=== PATIENT | female | born 1990 | race Caucasian/White ===

== ENCOUNTER 2017-02-06 11:44 | Emergency (ER) | payer OTHER, MEDICAID ==
--- NOTE | 2017-02-06 12:22 | ER Document Report ---
ED Medical Screen (RME) - General Chief Complaint: Seizure Stated Complaint: POSSIBLE SEIZURE Time Seen by Provider: 02/06/17 12:07 Mode of Arrival: Wheelchair Information source: Relative Cannot obtain history due to: Mentally challenged Notes: This is a 26-year-old female with a history of autism, mental disability, and seizure disorder who presents after having multiple seizures today at home. Caregivers states that she has not had a seizure in over a year until today. She has a vagus nerve stimulator and is also taking Depakote and Zonegran for her seizures. Caregiver states that she has had a total of 9 seizures since 330 this morning. The most recent seizure was at about 1120 and lasted for 7- 10 minutes. She has been given p.o. Valium today as well as 1 dose of her rectal Diastat at about 1030. Caregivers report no recent fevers or illness. She is currently at her baseline mental status. Her neurologist is Dr. Barba. I have greeted and performed a rapid initial assessment of this patient. A comprehensive ED assessment and evaluation of the patient, analysis of test results and completion of the medical decision making process will be conducted by additional ED providers. TRAVEL OUTSIDE OF THE [place] IN LAST 30 DAYS: No - Related Data Allergies/Adverse Reactions: pertussis vaccine,adsorbed [Pertussis Vaccine,Adsorbed] Allergy (Severe, Verified 01/25/15 11:01) Seizures Past Medical History - Past Medical History Cardiac Medical History: Denies: Hx Coronary Artery Disease, Hx Heart Attack, Hx Hypertension Pulmonary Medical History: Reports: Hx Asthma - on meds Denies: Hx Bronchitis, Hx COPD, Hx Pneumonia Neurological Medical History: Reports: Hx Seizures - last x 3 weeks ago//vns implant. Denies: Hx Cerebrovascular Accident Renal/ Medical History: Denies: Hx Peritoneal Dialysis Musculoskeltal Medical History: Denies Hx Arthritis - Immunizations Hx Diphtheria, Pertussis, Tetanus Vaccination: Yes Physical Exam - Vital signs Vitals: Pulse Resp BP Pulse Ox 113 H 18 116/48 L 98 02/06/17 11:53 02/06/17 11:53 02/06/17 11:53 02/06/17 11:53 - General In distress: None Notes: Alert, baseline mental status per family. Course - Vital Signs Vital signs: Temp Pulse Resp BP Pulse Ox 113 H 18 116/48 L 98 02/06/17 11:53 02/06/17 11:53 02/06/17 11:53 02/06/17 11:53
[2017-02-06 14:09] LABS: ABSOLUTE BASOPHILS # (AUTO) 0.1 10^3/uL (0.0-0.2); ABSOLUTE LYMPHOCYTES (AUTO) 2.3 10^3/uL (0.5-4.7); ABSOLUTE MONOCYTES (AUTO) 0.5 10^3/uL (0.1-1.4); ABSOLUTE NEUT (AUTO) 7.2 10^3/uL (1.7-8.2); BASOPHILS % (AUTO) 0.5 % (0-2); EOSINOPHILS % (AUTO) 0.2 % (0-6); HEMATOCRIT 38.5 % (36.0-47.0); HEMOGLOBIN 12.7 g/dL (12.0-15.5); HGB HCT DIFFERENCE -0.4; LYMPHOCYTES % (AUTO) 22.9 % (13-45); MEAN CORPUSCULAR HEMOGLOBIN 30.9 pg (27.0-33.4); MEAN CORPUSCULAR VOLUME 93 fl (80-97); RED BLOOD COUNT 4.12 10^6/uL (3.72-5.28); RED CELL DISTRIBUTION WIDTH 15.3 % (11.5-14.0); SEGMENTED NEUTROPHILS % (AUTO) 71.4 % (42-78); WHITE BLOOD COUNT 10.1 10^3/uL (4.0-10.5)
[2017-02-06 14:28] LABS: ALANINE AMINOTRANSFERASE 38 U/L (9-52); ALBUMIN 4.6 g/dL (3.5-5.0); ALKALINE PHOSPHATASE 75 U/L (38-126); ANION GAP 11 (5-19); ASPARTATE AMINO TRANSFERASE 32 U/L (14-36); BILIRUBIN,DIRECT 0.3 mg/dL (0.0-0.4); BILIRUBIN,TOTAL 0.5 mg/dL (0.2-1.3); BLOOD UREA NITROGEN 14 mg/dL (7-20); CALCIUM 10.7 mg/dL (8.4-10.2); CARBON DIOXIDE 23 mmol/L (22-30); CHLORIDE 107 mmol/L (98-107); CREATININE RESULT 0.62 mg/dL (0.52-1.25); GLUCOSE 88 mg/dL (75-110); POTASSIUM 4.8 mmol/L (3.6-5.0); SODIUM 141.3 mmol/L (137-145); TOTAL PROTEIN 8.1 g/dL (6.3-8.2)
[2017-02-06 14:35] LABS: ALCOHOL < 10 mg/dL (NONE DETECTED)
[2017-02-06] MEDS ORDERED: DIAZEPAM INJ 10 MG/2 ML DISP.SYRIN IV ONE (15:36)
[2017-02-06 16:54] LABS: APPEARANCE,URINE CLOUDY; BILIRUBIN,URINE NEGATIVE (NEGATIVE); GLUCOSE, URINE NEGATIVE (NEGATIVE); KETONES,URINE NEGATIVE (NEGATIVE); LEUKOCYTE ESTERASE,URINE NEGATIVE (NEGATIVE); NITRITE,URINE NEGATIVE (NEGATIVE); PROTEIN,URINE 30 mg/dL (NEGATIVE); URINE SPECIFIC GRAVITY 1.025; UROBILINOGEN,URINE NEGATIVE mg/dL (<2.0)
[2017-02-06 17:05] LABS: URINE BARBITURATES SCREEN NEGATIVE; URINE METHADONE SCREEN NEGATIVE; URINE OPIATES LOW NEGATIVE; URINE PHENCYCLIDINE SCREEN NEGATIVE
[2017-02-06] MEDS ORDERED: DIVALPROEX SODIUM 500 MG TAB.SR.24H PO ONE ×2 (17:54→18:05)
[2017-02-06] MEDS ORDERED: DIVALPROEX SODIUM 250 MG TAB.SR.24H PO ONE (18:13)
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
[2017-02-06 18:15] VITALS: BP 124/81
== END 2017-02-06 18:25 | disposition home or self-care (01) ==
LOC: ER 11:44
DX: G40.409 Other generalized epilepsy and epileptic syndromes, not intractable, without status epilepticus (principal); J45.909 Unspecified asthma, uncomplicated; Z79.899 Other long term (current) drug therapy; Z96.89 Presence of other specified functional implants; Z88.7 Allergy status to serum and vaccine
CPT/HCPCS: 99284; 51701; 36415; 82962; 80307 ×2; 83735; 84703; 85025; 80053; 81001; 80164; J3490

== ENCOUNTER → 2017-11-27 | Outpatient (CLI) | payer OTHER, MEDICAID ==
--- NOTE | 2017-11-27 11:49 | RADIOLOGY REPORT (SQ) ---
EXAM DESCRIPTION: CHEST PA/LATERAL COMPLETED DATE/TIME: 11/27/2017 11:41 am REASON FOR STUDY: COUGH R05 COUGH COMPARISON: None. NUMBER OF VIEWS: Two views. TECHNIQUE: Frontal and lateral radiographic views of the chest acquired. LIMITATIONS: Motion on lateral view. FINDINGS: LUNGS AND PLEURA: No opacities, masses or pneumothorax. No pleural effusion. MEDIASTINUM AND HILAR STRUCTURES: No masses or contour abnormality. HEART AND VASCULAR STRUCTURES: Cardiac enlargement. Vascular congestion. BONES: No acute findings. HARDWARE: Vagal nerve stimulator. OTHER: No other significant finding. IMPRESSION: CARDIAC ENLARGEMENT. VASCULAR CONGESTION. TECHNICAL DOCUMENTATION: JOB ID: [id number] [employer]- All Rights Reserved Reading location - IP/workstation name: [email or web address]
== END ==
LOC: OD 11:12
PROVIDERS: ATTEND Family Medicine
DX: R05 Cough (principal)
CPT/HCPCS: 71046

== ENCOUNTER → 2018-03-26 | Outpatient (CLI) | payer OTHER, MEDICAID ==
--- NOTE | 2018-03-26 16:02 | RADIOLOGY REPORT (SQ) ---
EXAM DESCRIPTION: CHEST PA/LATERAL COMPLETED DATE/TIME: 03/26/2018 3:48 pm REASON FOR STUDY: COUGH COMPARISON: 11/27/2017. EXAM PARAMETERS: NUMBER OF VIEWS: two views TECHNIQUE: Digital Frontal and Lateral radiographic views of the chest acquired. RADIATION DOSE: NA LIMITATIONS: none FINDINGS: LUNGS AND PLEURA: No opacities, masses or pneumothorax. No pleural effusion. MEDIASTINUM AND HILAR STRUCTURES: No masses or contour abnormalities. HEART AND VASCULAR STRUCTURES: Heart normal size. No evidence for failure. BONES: No acute findings. HARDWARE: Nerve stimulator. OTHER: No other significant finding. IMPRESSION: NO SIGNIFICANT RADIOGRAPHIC FINDING IN THE CHEST. TECHNICAL DOCUMENTATION: JOB ID: [id number] [employer]- All Rights Reserved Reading location - IP/workstation name: [email or web address]
== END ==
LOC: OD 14:42
PROVIDERS: ATTEND Nurse Practitioner Family
DX: R05 Cough (principal)
CPT/HCPCS: 71046

== ENCOUNTER → 2018-12-15 | Outpatient (CLI) | payer OTHER, MEDICAID ==
--- NOTE | 2018-12-15 12:04 | RADIOLOGY REPORT (SQ) ---
EXAM DESCRIPTION: FINGERS RIGHT COMPLETED DATE/TIME: 12/15/2018 11:18 am REASON FOR STUDY: RT FINGER PAIN M79.644 PAIN IN RIGHT FINGER(S) COMPARISON: None. NUMBER OF VIEWS: Three views. TECHNIQUE: AP, lateral, and oblique images acquired of the right second finger. LIMITATIONS: None. FINDINGS: MINERALIZATION: Normal. BONES: No acute fracture or dislocation. SOFT TISSUES:Soft tissue swelling. No foreign body. OTHER: No other significant finding. IMPRESSION: 1. Soft tissue swelling. Correlation suggested. 2. No acute osseous findings. COMMENT: SITE OF TRAUMA/COMPLAINT MARKED/STAMP COMPLETED: NO. TECHNICAL DOCUMENTATION: JOB ID: [id number] [employer]- All Rights Reserved Reading location - IP/workstation name: [email or web address]
== END ==
LOC: OD 11:03
PROVIDERS: ATTEND Nurse Practitioner Acute Care
DX: M79.644 Pain in right finger(s) (principal); M79.89 Other specified soft tissue disorders

== ENCOUNTER 2019-02-07 21:47 | Inpatient (IN) | payer OTHER, MEDICAID ==
[2019-02-07] MEDS ORDERED: IPRATROPIUM/ALBUTEROL 0.5-2.5 MG/3 ML AMPUL NEB ONE (22:13)
[2019-02-07] MEDS ORDERED: METHYLPREDNISOLONE INJ 125 MG/2 ML SDV IV ONE (22:13)
[2019-02-07] MEDS ORDERED: AZITHROMYCIN INJ 500 MG VIAL IV ONE (22:14)
[2019-02-07] MEDS ORDERED: CEFTRIAXONE INJ 1000 MG VIAL IV ONE (22:14)
--- NOTE | 2019-02-07 22:21 | ER Document Report ---
ED General - General Chief Complaint: Shortness Of Breath Stated Complaint: SHORTNESS OF BREATH Time Seen by Provider: 02/07/19 22:07 Primary Care Provider: PHILIPPE RUIZ NP [Primary Care Provider] - Follow up as needed Information source: Parent Cannot obtain history due to: Mentally challenged, Unstable vital signs Notes: Patient is a 28-year-old female with a history of developmental delay, epilepsy, presents cough, fever to 104.4 F, and cough. History is extremely limited as patient is quite unstable at time of presentation with severe hypoxemia. Mother denies any history of similar symptoms in the past. Patient was seen at urgent care several days ago and discharged without intervention. TRAVEL OUTSIDE OF THE [place] IN LAST 30 DAYS: No - Related Data Allergies/Adverse Reactions: pertussis vaccine,adsorbed [Pertussis Vaccine,Adsorbed] Allergy (Severe, Verified 01/25/15 11:01) Seizures Past Medical History - General Information source: Parent Cannot obtain history due to: Mentally challenged, Unstable vital signs - Social History Smoking Status: Never Smoker Frequency of alcohol use: None Drug Abuse: None Lives with: Parents Family History: Reviewed & Not Pertinent - Past Medical History Cardiac Medical History: Denies: Hx Coronary Artery Disease, Hx Heart Attack, Hx Hypertension Pulmonary Medical History: Reports: Hx Asthma - on meds Denies: Hx Bronchitis, Hx COPD, Hx Pneumonia Neurological Medical History: Reports: Hx Seizures - last x 3 weeks ago//vns implant. Denies: Hx Cerebrovascular Accident Renal/ Medical History: Denies: Hx Peritoneal Dialysis Musculoskeletal Medical History: Denies Hx Arthritis - Immunizations Hx Diphtheria, Pertussis, Tetanus Vaccination: Yes Review of Systems - Review of Systems -: Yes ROS unobtainable due to patient's medical condition Physical Exam - Vital signs Vitals: Resp Pulse Ox 17 69 L 02/07/19 21:53 02/07/19 21:53 Interpretation: Tachycardic, Hypoxic, Tachypneic Notes: PHYSICAL EXAMINATION: GENERAL: Lethargic, visibly cyanotic, in respiratory distress HEAD: Atraumatic, normocephalic. EYES: extraocular movements intact, sclera anicteric, conjunctiva are normal. ENT: nares patent, oropharynx clear without exudates. Dry mucous membranes. NECK: supple without lymphadenopathy LUNGS: Diminished in the left versus the right, coarse rales throughout HEART: Regular tachycardia, no murmurs, echo without pericardial effusion ABDOMEN: Soft, obese abdomen, nontender, normoactive bowel sounds. No guarding, no rebound. No masses appreciated. EXTREMITIES: No pitting or edema. No cyanosis. NEUROLOGICAL: No focal neurological deficits. Moves all extremities spontaneously PSYCH: Somewhat agitated, cognitively impaired SKIN: Warm, Dry, normal turgor, no rashes or lesions noted. Course - Re-evaluation Re-evalutation: 02/07/19 22:15 Patient arrives visibly cyanotic, blue lips, cyanotic hands, quite lethargic. Initial report of from EMS was that patient was saturating 95% on room air but this appears to be an air as patient is visibly cyanotic at time of presentation. Was immediately placed on nasal cannula and transition to nonrebreather when this was available. This did bring patient saturations in the low 90s and she was subsequently transferred to BiPAP at 65% FiO2 bring her saturations to 97%. The remainder of her vitals are within acceptable limits heart rate in the upper 80s, blood pressure 110 on 68. Moderately tachypneic at time of presentation with coarse rales and wheezing in all lung souza. Di minished on left versus right. Initial chest x-ray appears to show a right- sided pneumonia and patient has had a fever with cough at home, T-max 104 F. Patient has been started on ceftriaxone and azithromycin as well as IV fluids. Critically ill, will continue to reassess at regular intervals. 02/07/19 22:48 I have weaned the patient's FiO2 down to 50%, sat is currently 96%. Chest x-ray seems to show a very large pneumonic infiltrate on the left as well as the right although left is much more prominent than right. Labs currently pending. Patient remains in guarded condition although is much improved from initial presentation. Will continue to reassess at regular intervals 02/08/19 00:29 Patient has deteriorated, blood pressure is beginning to down trend as is her oxygenation despite uptrending to 70% FiO2 on BiPAP. Patient will be moved to a resuscitation room, will give 2 additional liters of IV fluid. Patient may require intubation if her oxygenation does not improve on BiPAP. 02/08/19 02:02 Documentation is delayed as this patient had significant deterioration. Her clinical status unfortunately deteriorated significantly with her oxygenation coming down into the 80s even on 100% on BiPAP. Patient's blood pressure also deteriorated coming into the 80s systolic despite fluid resuscitation. Patient subsequently underwent RSI, first-pass attempt was successful. Patient sedated using rocuronium ketamine during intubation, propofol and hydromorphone thereafter. The patient then had a right internal jugular central line placed without difficulty after several attempts were made at the right femoral vein although it was very difficult to visualize her vein even with ultrasound guidance and I was never able to successfully catheterize the vein. The patient is currently receiving norepinephrine to maintain her pressures. I have contacted [facility] and awaiting callback. 02/08/19 03:52 I reassessed the patient on multiple occasions. She continues to be much improved in terms her hemodynamics since above interventions. I continue to await callback from [facility] and have called twice to determine because of delay. Accepting vamp marker is busy with critical patients at the facility. Awaiting callback. Will continue current management. 02/08/19 04:21 I did discuss this case with Dr. Kramer at [facility] who advises that the patient can likely remain here at [facility] as she does not require dialysis at this point. I did discuss with Dr. Henderson who has accepted the patient to the ICU. - Vital Signs Vital signs: Temp Pulse Resp BP Pulse Ox 98.4 F 29 H 112/99 H 94 02/08/19 00:10 02/08/19 01:01 02/08/19 01:01 02/08/19 01:15 - Laboratory Result Diagrams: 02/07/19 22:07 02/07/19 23:00 Laboratory results interpreted by me: 02/07/19 02/07/19 02/07/19 22:07 22:07 23:00 RBC 3.21 L Hgb 10.0 L Hct 29.6 L RDW 16.7 H Plt Count 123 L Seg Neuts % (Manual) 33 L Band Neutrophils % 29 H Monocytes % (Manual) 1 L Metamyelocytes % 3 H Myelocytes % 3 H Promyelocytes % 2 H Abs Monocytes (Manual) 0.0 L VBG pH 7.29 L Carbon Dioxide 20 L BUN 46 H Creatinine 3.45 H Est GFR ( Amer) 19 L Est GFR (Non-Af Amer) 16 L Calcium 8.3 L Direct Bilirubin 0.6 H AST 59 H NT-Pro-B Natriuret Pep Total Protein 5.4 L Albumin 2.7 L 02/07/19 23:00 RBC Hgb Hct RDW Plt Count Seg Neuts % (Manual) Band Neutrophils % Monocytes % (Manual) Metamyelocytes % Myelocytes % Promyelocytes % Abs Monocytes (Manual) VBG pH Carbon Dioxide BUN Creatinine Est GFR ( Amer) Est GFR (Non-Af Amer) Calcium Direct Bilirubin AST NT-Pro-B Natriuret Pep 3020 H Total Protein Albumin - Diagnostic Test Radiology reviewed: Image reviewed, Reports reviewed Radiology results interpreted by me: 02/08/19 03:53 Chest x-ray: Bilateral infiltrates left worse than right - EKG Interpretation by Me Additional EKG results interpreted by me: 02/08/19 04:23 Sinus rhythm, rate 88, no ST elevations or depressions. QTC is 441. Procedures - Central Line Right Internal jugular Consent obtained: No - Emergent Central line pre-insertion: Sterile PPE donned, Chloraprep applied Central line lumen type: Triple Ultrasound guided: Yes Line secured with sutures: Yes Central line post-insertion: Blood return from lumens, Biopatch applied, Sutured, Sterile dressing applied, Position confirmed w/ CXR Number of attempts: 1 Complications: No - Intubation Orotracheal Airway evaluation: Obese Mallampati Classification: Class 1 Medications: Ketamine, Other - Rocuronium Intubation method: Orotracheal Blade size: 4 Equipment used: Glidescope ETT size: 7.5 ETT secured at: Lips ETT secured at (cm): 21 Breath Sounds after Intubation: Equal End tidal CO2 confirmed: Yes Ventilator settings: SIMV Tidal volume: 400 FiO2: 100 Respirations: 16 PEEP: 12 Post Intubation Xray: Yes Intubation Complications: No complications Critical Care Note - Critical Care Note Total time excluding time spent on procedures (mins): 110 Comments: Critical care time spent obtaining history from patient or surrogate, discussions with consultants, development of treatment plan with patient or surrogate, evaluation of patient's response to treatment, examination of patient, ordering and performing treatments and interventions, ordering and review of laboratory studies, re-evaluation of patient's condition, ordering and review of radiographic studies and review of old charts Discharge - Discharge Clinical Impression: Acute respiratory failure with hypoxia, Septic shock, developmental delay Bilateral pneumonia Qualifiers: Pneumonia type: due to unspecified organism Lung location: unspecified part of lung Qualified Code(s): J18.9 - Pneumonia, unspecified organism Acute renal failure Qualifiers: Acute renal failure type: unspecified Qualified Code(s): N17.9 - Acute kidney failure, unspecified Condition: Critical Disposition: ADMITTED INPATIENT Admitting Provider: Beatriz (Hospitalist) Referrals: PHILIPPE RUIZ NP [Primary Care Provider] - Follow up as needed
[2019-02-07 22:26] LABS: HEMATOCRIT 29.6 % (36.0-47.0); MEAN CORPUSCULAR HEMOGLOBIN 31.1 pg (27.0-33.4); MEAN CORPUSCULAR HGB CONC 33.8 g/dL (32.0-36.0); MEAN CORPUSCULAR VOLUME 92 fl (80-97); PLATELET COUNT 123 10^3/uL (150-450); RED BLOOD COUNT 3.21 10^6/uL (3.72-5.28); RED CELL DISTRIBUTION WIDTH 16.7 % (11.5-14.0); WHITE BLOOD COUNT 4.9 10^3/uL (4.0-10.5)
[2019-02-07 22:32] LABS: VENOUS BLOOD HCO3 22.6 mmol/L (20-32); VENOUS BLOOD PCO2 47.7 mmHg (35-63); VENOUS BLOOD PH 7.29 (7.30-7.42)
--- NOTE | 2019-02-07 22:38 | RADIOLOGY REPORT (SQ) ---
EXAM DESCRIPTION: XR CHEST 1 VIEW COMPLETED DATE/TME: 02/07/2019 22:10 CLINICAL HISTORY: 28 years, Female, sob COMPARISON: 03/26/2018 chest NUMBER OF VIEWS: 1 TECHNIQUE: Portable chest LIMITATIONS: None. FINDINGS: Heart size is normal. Left-sided pacing device. Extensive airspace opacity throughout the left hemithorax. Airspace opacity in the right perihilar region. No pneumothorax. IMPRESSION: Airspace opacities bilaterally, more extensive on the left. Findings likely reflect a combination of effusion and atelectasis with pneumonia not excluded copyright 2010 [employer]- All Rights Reserved
[2019-02-07 22:47] LABS: ABSOLUTE LYMPHOCYTES# (MANUAL) 1.4 10^3/uL (0.5-4.7); ABSOLUTE NEUTROPHILS# (MANUAL) 3.4 10^3/uL (1.7-8.2); BASOPHILS % (MANUAL) 0 % (0-2); EOSINOPHILS % (MANUAL) 0 % (0-6); LYMPHOCYTES % (MANUAL) 29 % (13-45); MONOCYTES % (MANUAL) 1 % (3-13); SEGMENTED NEUTROPHILS % (MAN) 33 % (42-78); TOTAL CELLS COUNTED 100
[2019-02-07 22:50] LABS: PLATELET COMMENT DECREASED; TOXIC GRANULATION 1+; TOXIC VACUOLATION PRESENT
[2019-02-07 22:54] LABS: ANISOCYTOSIS 1+; HYPOCHROMASIA SLIGHT; POIKILOCYTOSIS SLIGHT
[2019-02-07 22:55] LABS: BAND NEUTROPHILS % (MANUAL) 29 % (3-5); METAMYELOCYTES % (MANUAL) 3 % (0); MYELOCYTES % (MANUAL) 3 % (0); PROMYELOCYTES % (MANUAL) 2 % (0)
[2019-02-07 23:35] LABS: ALANINE AMINOTRANSFERASE 33 U/L (9-52); ALBUMIN 2.7 g/dL (3.5-5.0); ALKALINE PHOSPHATASE 49 U/L (38-126); ANION GAP 15 (5-19); ASPARTATE AMINO TRANSFERASE 59 U/L (14-36); BILIRUBIN,DIRECT 0.6 mg/dL (0.0-0.4); BILIRUBIN,TOTAL 0.6 mg/dL (0.2-1.3); BLOOD UREA NITROGEN 46 mg/dL (7-20); CALCIUM 8.3 mg/dL (8.4-10.2); CARBON DIOXIDE 20 mmol/L (22-30); CHLORIDE 102 mmol/L (98-107); GLUCOSE 104 mg/dL (75-110); POTASSIUM 4.2 mmol/L (3.6-5.0); SODIUM 137.2 mmol/L (137-145); TOTAL PROTEIN 5.4 g/dL (6.3-8.2)
--- NOTE | 2019-02-07 23:46 | EKG REPORT ---
SEVERITY:- BORDERLINE ECG - SINUS RHYTHM BORDERLINE T ABNORMALITIES, INFERIOR LEADS : Confirmed by: Aspen High MD 07-Feb-2019 23:45:53
[2019-02-08] MEDS ORDERED: NORMAL SALINE 1000 ML 1,000 ML IV ONE ×2 (00:09→00:10)
[2019-02-08] MEDS ORDERED: KETAMINE HCL INJ 500 MG/10 ML VIAL ONE (00:38)
[2019-02-08] MEDS ORDERED: PROPOFOL 1,000 MG/100 ML INFUS..BTL IV ONE (00:38)
[2019-02-08] MEDS ORDERED: NOREPINEPHRINE BITARTRATE INJ/PF 4 MG/4 ML SDV IV ONE (00:39)
--- NOTE | 2019-02-08 01:05 | RADIOLOGY REPORT (SQ) ---
EXAM DESCRIPTION: [facility]: XR CHEST 1 VIEW at 0044 CLINICAL HISTORY: 28 years Female, INCREASED SOB COMPARISON: 02/07/2019 at 2215 FINDINGS: There is persistent dense consolidation in the left mid and lower lung field, with obscuration of the left hemidiaphragm. No pneumothorax. Right lung remains well-inflated. No mediastinal shift. Electronic device in the left chest wall is again noted, leads extending into the left lower neck. Bony structures are unremarkable. IMPRESSION: 1. No significant change, with persistent dense consolidation/infiltrate in the left lower lobe, likely with left pleural effusion.
[2019-02-08] MEDS ORDERED: HYDROMORPHONE HCL INJ/PF 2 MG/ML AMPULE ONE ×2 (01:13→01:20)
[2019-02-08] MEDS ORDERED: ROCURONIUM BROMIDE INJ 50 MG/5 ML VIAL IV ONE ×2 (01:23→10:59)
[2019-02-08] MEDS ORDERED: DEXTROSE 5%-WATER 250 ML with NOREPINEPHRINE BITARTRATE 4 MG IV PRN ×4 (01:23→04:40)
[2019-02-08] MEDS ORDERED: KETAMINE HCL INJ 500 MG/10 ML VIAL IV ONE (01:24)
[2019-02-08] MEDS ORDERED: HYDROMORPHONE HCL INJ/PF 2 MG/ML AMPULE IV ONE ×2 (01:24→01:27)
[2019-02-08] MEDS ORDERED: PROPOFOL 1,000 MG/100 ML INFUS..BTL IV PRN (01:25)
--- NOTE | 2019-02-08 02:01 | RADIOLOGY REPORT (SQ) ---
EXAM DESCRIPTION: XR CHEST 1 VIEW COMPLETED DATE/TME: 02/08/2019 00:00 CLINICAL HISTORY: 28 years Female, ETT PLACEMENT, CL PLACEMENT, NG TUBE PLACEMENT COMPARISON: Same day. NUMBER OF VIEWS/TECHNIQUE: 1/AP FINDINGS: Moderate opacity-effusion of the left lower and mid hemithorax. Moderate central edema pattern. Moderate patchy opacity of the right upper lobe. Interval worsening. Adequate appearing endotracheal tube. Adequate appearing enteric tube.Adequate appearing right jugular central line. Normal cardiac silhouette size. No pneumothorax. Stable bony thorax. IMPRESSION: 1. Interval intubation. 2. Moderate opacity-effusion of the left lower and mid hemithorax. Moderate central edema pattern. Moderate patchy opacity of the right upper lobe. Interval worsening.
[2019-02-08] MEDS ORDERED: RINGERS SOLUTION,LACTATED 1,000 ML IV ONE (03:52)
[2019-02-08] MEDS ORDERED: RINGERS SOLUTION,LACTATED 1,000 ML IV PRN (04:40)
[2019-02-08] MEDS ORDERED: ONDANSETRON HCL INJ/PF 4 MG/2 ML SDV IV PRN (04:40)
[2019-02-08] MEDS ORDERED: CHLORPROMAZINE HCL INJ 25 MG/1 ML AMPULE IV PRN (04:48)
[2019-02-08] MEDS ORDERED: ACETAMINOPHEN 650 MG SUPP.RECT PR PRN (04:48)
[2019-02-08] MEDS ORDERED: LEVALBUTEROL HCL NEB 0.63 MG/3 ML AMPUL NEB PRN (04:48)
[2019-02-08] MEDS ORDERED: AZITHROMYCIN INJ 500 MG VIAL IV SCH (05:00)
[2019-02-08] MEDS ORDERED: VANCOMYCIN HCL INJ 1000 MG VIAL IV SCH (05:00)
[2019-02-08] MEDS ORDERED: MEROPENEM 1 GM VIAL IV PRN (05:00)
[2019-02-08] MEDS ORDERED: VANCOMYCIN HCL INJ 1000 MG VIAL IV PRN (05:09)
[2019-02-08] MEDS ORDERED: VANCOMYCIN HCL 1,500 MG in DEXTROSE 5%-WATER 250 ML IV ONE (06:00)
[2019-02-08] MEDS ORDERED: MEROPENEM 1 GM in NORMAL SALINE 50 ML IV SCH (06:00)
[2019-02-08 06:08] LABS: APPEARANCE,URINE CLOUDY; BILIRUBIN,URINE NEGATIVE (NEGATIVE); COLOR,URINE YELLOW; GLUCOSE, URINE NEGATIVE (NEGATIVE); KETONES,URINE NEGATIVE (NEGATIVE); LEUKOCYTE ESTERASE,URINE NEGATIVE (NEGATIVE); NITRITE,URINE NEGATIVE (NEGATIVE); PROTEIN,URINE 30 mg/dL (NEGATIVE); URINE SPECIFIC GRAVITY 1.013; UROBILINOGEN,URINE NEGATIVE mg/dL (<2.0)
[2019-02-08 06:28] LABS: ARTERIAL BLOOD H2CO3 1.27 mmol/L (1.05-1.35); ARTERIAL BLOOD O2 SATURATION 98.9 % (94-98); ARTERIAL BLOOD PCO2 42.2 mmHg (35-45); ARTERIAL BLOOD PH 7.22 (7.35-7.45); ARTERIAL BLOOD PO2 171.4 mmHg (80-100); ARTERIAL BLOOD TOTAL CO2 18.3 mmol/L (21-25)
[2019-02-08 06:29] LABS: ARTERIAL BLOOD FIO2 100%
--- NOTE | 2019-02-08 07:01 | PDOC H&P ---
History of Present Illness Admission Date/PCP: 02/08/2019 PHILIPPE RUIZ NP Patient complains of: Fever History of Present Illness: EDITA TAO is a 28 year old female who presents the emergency room with fever. Patient has developmental delays and is currently very ill (toxic) and hypoxic and unable to contribute to her medical care due to delirium. Mother relates that for 1 week she has been having a cough that has been mostly nonproductive and an intermittent fever with numerous episodes of seizures (history of seizure disorder often worsened by fever). She was seen, a few days ago, at an urgent care center and treated for an ear infection with oral Ceftin. On the evening prior to their emergency room visit the patient's fever went up to 104 but came down fairly quickly with ibuprofen and Tylenol. In the morning her mother found that she continued to have a cough and fever but later in the evening she realized that her daughter was severely ill when she found her fever had returned to 104.4 F and she was having trouble with her breathing. She subsequently called EMS. Upon their arrival, EMS found the patient with severe dyspnea, hypoxia and fever. Upon her arrival at the emergency room the patient was severely hypoxic and subsequently required intubation and mechanical ventilation. She was also noted to be febrile, severely tachycardic with severe acute renal failure and hypotension requiring pressor support with Levophed. Patient was subsequently admitted to the intensive care unit after stabilization in the emergency room. Past Medical History Cardiac Medical History: Reports: Heart Murmur - Ventricular septal defect? Denies: Coronary Artery Disease, Myocardial Infarction, Hypertension Pulmonary Medical History: Reports: Asthma - on meds Denies: Bronchitis, Chronic Obstructive Pulmonary Disease (COPD), Pneumonia EENT Medical History: Denies: Cataracts, Ears - Hearing aids Neurological Medical History: Reports: Seizures - last x 3 weeks ago//vns implant, Other - Developmental delays Denies: Hemorrhagic CVA, Ischemic CVA, Multiple Sclerosis Endocrine Medical History: Reports: Obesity Denies: Diabetes Mellitus Type 1, Diabetes Mellitus Type 2, Hyperthyroidism, Hypothyroidism Renal/ Medical History: Denies: Chronic Kidney Disease, Nephrolithiasis Malignancy Medical History: Reports: None GI Medical History: Denies: Cirrhosis, Crohn's Disease, Hepatitis, Ulcerative Colitis Musculoskeltal Medical History: Denies: Arthritis, Gout Skin Medical History: Denies: Eczema, Psoriasis Psychiatric Medical History: Denies: Alcohol Dependency, Substance Abuse, Tobacco Dependency Traumatic Medical History: Reports: None Hematology: Reports: Anemia Denies: Bleeding Tendencies Infectious Medical History: Reports: None Past Surgical History Past Surgical History: Reports: None Social History Information Source: Parent Lives with: Parents Smoking Status: Never Smoker Frequency of Alcohol Use: None Hx Recreational Drug Use: No Drugs: None Hx Prescription Drug Abuse: No - Advance Directive Resuscitation Status: Full Code Surrogate healthcare decision maker:: Marilu Tao Family History Family History: Hypertension Parental Family History Reviewed: Yes Children Family History Reviewed: NA Sibling(s) Family History Reviewed.: Yes Medication/Allergy Home Medications: Divalproex Sodium [Depakote ER] 2,500 mg PO DAILY 01/25/15 Furosemide [Lasix] 20 mg PO DAILY 01/25/15 Montelukast Sodium [Singulair 10 mg Tablet] 10 mg PO QHS 01/25/15 Vitamin B Complex [Vitamin B-100 Complex] 1 each PO DAILY 01/25/15 Acetaminophen [Tylenol] 650 mg PO Q4H PRN 02/08/19 Albuterol Sulfate [Ventolin 0.042% Neb 1.25 mg/3 ml Ampul] 1.25 mg NEB QIDP PRN 02/08/19 Budesonide [Pulmicort Neb 0.5 mg/2 ml Ampul] 0.5 mg NEB RTQ12 02/08/19 Clonazepam [Klonopin 1 mg Tablet] 1 mg PO QHS 02/08/19 Diazepam 10 mg PO TIDP PRN 02/08/19 Docusate Sodium [Colace 100 mg Capsule] 100 mg PO DAILY 02/08/19 Fluoxetine HCl [Prozac] 20 mg PO QAM 02/08/19 Fluticasone Propionate [Flonase Nasal [place] 50 Mcg/[place] 16 gm] 2 sprays NASL DAILY 02/08/19 Folic Acid [Folvite 1 mg Tablet] 1 mg PO DAILY 02/08/19 Hydroxyzine HCl [Atarax 25 mg Tablet] 25 mg PO QHS 02/08/19 Levalbuterol HCl [Xopenex Neb 1.25 mg/3 ml Ampul] 1.25 mg NEB RTQ8HP PRN 02/08/19 Levothyroxine Sodium [Synthroid 0.05 mg Tablet] 0.05 mg PO QAM 02/08/19 Loratadine [Claritin 10 mg Tablet] 10 mg PO DAILY 02/08/19 Polyethylene Glycol 3350 [Miralax Powder 17 gm/Packet] 1 packet PO DAILY PRN 02/08/19 Sennosides [Senokotxtra] 0.5 tab PO ASDIR PRN 02/08/19 Zonisamide [Zonegran 100 Mg Capsule] 200 mg PO BID 02/08/19 Allergies/Adverse Reactions: pertussis vaccine,adsorbed [Pertussis Vaccine,Adsorbed] Allergy (Severe, Verified 01/25/15 11:01) Seizures Review of Systems Constitutional: PRESENT: chills, fever(s) Eyes: ABSENT: visual disturbances, other - Ocular pain Ears: ABSENT: hearing changes, other - Ear pain Nose, Mouth, and Throat: ABSENT: mouth pain, sore throat Cardiovascular: PRESENT: dyspnea on exertion. ABSENT: chest pain, edema, orthropnea, palpitations Respiratory: PRESENT: cough, dyspnea Gastrointestinal: ABSENT: abdominal pain, constipation, diarrhea, nausea, vomiting Genitourinary: ABSENT: dysuria, hematuria Musculoskeletal: ABSENT: joint swelling, muscle weakness Integumentary: ABSENT: pruritus, rash Neurological: ABSENT: confusion, convulsions, focal weakness, memory loss, syncope Psychiatric: ABSENT: anxiety, depression Endocrine: ABSENT: cold intolerance, heat intolerance Hematologic/Lymphatic: ABSENT: easy bleeding, easy bruising Physical Exam Vital Signs: Temp Pulse Resp BP Pulse Ox 98.4 F 16 122/65 96 02/08/19 00:10 02/08/19 04:21 02/08/19 04:21 02/08/19 04:21 Intake & Output 02/06/19 02/07/19 02/08/19 23:59 23:59 23:59 Intake Total 1999 Balance 1999 Weight 91.9 kg General appearance: PRESENT: no acute distress, obese, other - Sedated intubated and ventilated Head exam: PRESENT: atraumatic, normocephalic Eye exam: ABSENT: conjunctival injection, scleral icterus Ear exam: PRESENT: normal external ear exam. ABSENT: bleeding, drainage Mouth exam: PRESENT: dry mucosa, neck supple, other - ET tube in good position Neck exam: ABSENT: JVD, thyromegaly, tracheal deviation Respiratory exam: PRESENT: rales - Left chest with prominent coarse rales in the lower two thirds of the left lung souza, rhonchi - Left chest with prominent c oarse rhonchorous sounds, symmetrical, other - Intubated with mechanical ventilation Cardiovascular exam: PRESENT: RRR, tachycardia. ABSENT: clicks, gallop, rubs Pulses: PRESENT: normal radial pulses, normal dorsalis pedis pul, other - Patient is noted to be on pressor support with Levophed Vascular exam: PRESENT: normal capillary refill. ABSENT: pallor GI/Abdominal exam: PRESENT: normal bowel sounds, soft Rectal exam: PRESENT: deferred Extremities exam: ABSENT: joint swelling, pedal edema Musculoskeletal exam: ABSENT: deformity, dislocation Neurological exam: PRESENT: altered - Obtunded secondary to medications, other - Patient is intubated and sedated on mechanical ventilation including a meaningful exam Psychiatric exam: PRESENT: other - Patient is intubated and sedated on mechanical ventilation including a meaningful exam Skin exam: PRESENT: dry, intact, warm. ABSENT: jaundice, rash, urticaria Results Laboratory Results: 02/07/19 22:07 02/07/19 23:00 02/07/19 02/07/19 02/07/19 22:07 22:07 22:07 WBC 4.9 RBC 3.21 L Hgb 10.0 L Hct 29.6 L MCV 92 MCH 31.1 MCHC 33.8 RDW 16.7 H Plt Count 123 L Seg Neutrophils % Not Reportable Lymphocytes % Not Reportable Monocytes % Not Reportable Eosinophils % Not Reportable Basophils % Not Reportable Absolute Neutrophils Not Reportable Absolute Lymphocytes Not Reportable Absolute Monocytes Not Reportable Absolute Eosinophils Not Reportable Absolute Basophils Not Reportable VBG pH VBG pCO2 VBG HCO3 VBG Base Excess Sodium Potassium Chloride Carbon Dioxide Anion Gap BUN Creatinine Est GFR ( Amer) Est GFR (Non-Af Amer) Glucose Lactic Acid Cancelled Calcium Total Bilirubin AST ALT Alkaline Phosphatase Total Protein Albumin Serum HCG, Qual NEGATIVE 02/07/19 02/07/19 02/07/19 22:07 22:07 22:07 WBC RBC Hgb Hct MCV MCH MCHC RDW Plt Count Seg Neutrophils % Lymphocytes % Monocytes % Eosinophils % Basophils % Absolute Neutrophils Absolute Lymphocytes Absolute Monocytes Absolute Eosinophils Absolute Basophils VBG pH 7.29 L VBG pCO2 47.7 VBG HCO3 22.6 VBG Base Excess -4.0 Sodium Cancelled Potassium Cancelled Chloride Cancelled Carbon Dioxide Cancelled Anion Gap Cancelled BUN Cancelled Creatinine Cancelled Est GFR ( Amer) Cancelled Est GFR (Non-Af Amer) Cancelled Glucose Cancelled Lactic Acid 1.0 Calcium Cancelled Total Bilirubin Cancelled AST Cancelled ALT Cancelled Alkaline Phosphatase Cancelled Total Protein Cancelled Albumin Cancelled Serum HCG, Qual 02/07/19 23:00 WBC RBC Hgb Hct MCV MCH MCHC RDW Plt Count Seg Neutrophils % Lymphocytes % Monocytes % Eosinophils % Basophils % Absolute Neutrophils Absolute Lymphocytes Absolute Monocytes Absolute Eosinophils Absolute Basophils VBG pH VBG pCO2 VBG HCO3 VBG Base Excess Sodium 137.2 Potassium 4.2 Chloride 102 Carbon Dioxide 20 L Anion Gap 15 BUN 46 H Creatinine 3.45 H Est GFR ( Amer) 19 L Est GFR (Non-Af Amer) 16 L Glucose 104 Lactic Acid Calcium 8.3 L Total Bilirubin 0.6 AST 59 H ALT 33 Alkaline Phosphatase 49 Total Protein 5.4 L Albumin 2.7 L Serum HCG, Qual 02/07/19 02/07/19 23:00 23:00 Troponin I 0.185 NT-Pro-B Natriuret Pep 3020 H Impressions: Chest X-Ray 02/08/19 00:00 IMPRESSION: 1. Interval intubation. 2. Moderate opacity-effusion of the left lower and mid hemithorax. Moderate central edema pattern. Moderate patchy opacity of the right upper lobe. Interval worsening. Assessment and Plan - Diagnosis (1) Septic shock Is this a current diagnosis for this admission?: Yes Plan: Patient was admitted to the ICU and will be treated with intravenous vasopressor agents including Levophed as required to maintain adequate mean blood pressure for organ perfusion. (2) Acute renal failure Qualifiers: Acute renal failure type: unspecified Qualified Code(s): N17.9 - Acute kidney failure, unspecified Is this a current diagnosis for this admission?: Yes Plan: Patient's acute renal failure be treated with IV fluids and serial metabolic profiles to evaluate efficacy of therapy. A renal consultation will be obtained if need is evidenced by patient's renal function worsening. (3) Severe sepsis with acute organ dysfunction Is this a current diagnosis for this admission?: Yes Plan: The patient's severe sepsis has resulted in organ dysfunction as evidenced by acute renal failure and shock. Patient is treated with IV fluids and her septic shock will be treated with vasopressors. The sepsis will be covered with broad- spectrum antibiotics including azithromycin 500 mg IV every 24 hours, meropenem 1 g IV every 6 hours and vancomycin to be dosed by pharmacy. She will followed with daily blood work including a CBC, CMP, magnesium level and ABGs. Serial lactate levels will be obtained. Blood cultures are pending at the present time. (4) Community acquired pneumonia of left lower lobe of lung Is this a current diagnosis for this admission?: Yes Plan: Patient's pneumonia will be treated aggressively for a community-acquired pneumonia with azithromycin 500 mg IV every 24 hours, meropenem 1 g IV every 6 hours and vancomycin to be dosed by pharmacy. Patient will also receive a pulmonary toilet utilizing Xopenex nebulizers every 2 hours as needed and Mucomyst nebulizer twice daily. Her secondary symptoms of fever will be treated with Tylenol suppositories while she is on the ventilator. Dr. Rossi will be consulted for pulmonology input. (5) Acute respiratory failure with hypoxia Is this a current diagnosis for this admission?: Yes Plan: Patient's acute respiratory failure with hypoxia will be treated with ventilator support as the patient has been endotracheally intubated and started on mechanical ventilation in the emergency room. Dr. Rossi will be consulted to manage her ventilator and he will also be consulted for evaluation of her pneumonia as appropriate. - Time Time Spent with patient: 25-34 minutes - Inpatient Certification Based on my medical assessment, after consideration of the patient's comorbidities, presenting symptoms, or acuity I expect that the services needed warrant INPATIENT care.: Yes I certify that my determination is in accordance with my understanding of Medicare's requirements for reasonable and necessary INPATIENT services [42 CFR 412.3e].: Yes Medical Necessity: Need Close Monitoring Due to Risk of Patient Decompensation, Need For IV Fluids, Need For Continuous Telemetry Monitoring, Need for Nebulizer Therapy and Monitoring of Response, Need for IV Antibiotics, Risk of Complication if Not Cared For in Hospital
[2019-02-08] MEDS: PROPOFOL 1,000 MG/100 ML INFUS..BTL IV PRN ×5 (07:28→23:22)
[2019-02-08] MEDS: METHYLPREDNISOLONE INJ 40 MG/1 ML SDV IV SCH ×4 (07:38→23:22)
[2019-02-08] MEDS: HEPARIN SOD (PORCINE) 5,000 UNIT/ML 1 ML SYRINGE SUBCUT SCH ×3 (07:39→21:46)
[2019-02-08] MEDS ORDERED: ACETYLCYSTEINE 20% SOLN 800 MG/4 ML VIAL.NEB NEB SCH (08:00)
[2019-02-08] MEDS: LEVALBUTEROL HCL NEB 0.63 MG/3 ML AMPUL NEB PRN ×2 (09:00→20:32)
[2019-02-08] MEDS: ACETYLCYSTEINE 20% SOLN 800 MG/4 ML VIAL.NEB NEB SCH ×2 (09:00→20:31)
[2019-02-08] MEDS: PANTOPRAZOLE SODIUM 40 MG VIAL IV SCH ×2 (11:32→21:44)
[2019-02-08] MEDS ORDERED: (PENDING PHARMACY ID) (Sennosides [Senokot] 17.2 MG) NG PRN (13:39)
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
[2019-02-08] MEDS: ALBUMIN HUMAN 12.5 GM/50 ML RTUINJ IV SCH ×2 (15:40→16:16)
[2019-02-08 17:48] LABS: HEMATOCRIT 25.6 % (36.0-47.0); HEMOGLOBIN 8.6 g/dL (12.0-15.5); MEAN CORPUSCULAR HEMOGLOBIN 31.4 pg (27.0-33.4); MEAN CORPUSCULAR HGB CONC 33.8 g/dL (32.0-36.0); MEAN CORPUSCULAR VOLUME 93 fl (80-97); PLATELET COUNT 103 10^3/uL (150-450); RED BLOOD COUNT 2.75 10^6/uL (3.72-5.28); WHITE BLOOD COUNT 4.2 10^3/uL (4.0-10.5)
[2019-02-08] MEDS ORDERED: DIVALPROEX SODIUM 500 MG TAB.SR.24H PO SCH (18:00)
[2019-02-08 18:04] LABS: ANION GAP 12 (5-19); BLOOD UREA NITROGEN 42 mg/dL (7-20); CALCIUM 8.8 mg/dL (8.4-10.2); CARBON DIOXIDE 21 mmol/L (22-30); CHLORIDE 106 mmol/L (98-107); GLUCOSE 171 mg/dL (75-110); POTASSIUM 3.9 mmol/L (3.6-5.0); SODIUM 138.8 mmol/L (137-145)
[2019-02-08 18:20] LABS: ABSOLUTE LYMPHOCYTES# (MANUAL) 0.8 10^3/uL (0.5-4.7); ABSOLUTE NEUTROPHILS# (MANUAL) 3.4 10^3/uL (1.7-8.2); ANISOCYTOSIS 1+; BAND NEUTROPHILS % (MANUAL) 25 % (3-5); BASOPHILS % (MANUAL) 1 % (0-2); EOSINOPHILS % (MANUAL) 0 % (0-6); LYMPHOCYTES % (MANUAL) 18 % (13-45); METAMYELOCYTES % (MANUAL) 1 % (0); MONOCYTES % (MANUAL) 0 % (3-13); MYELOCYTES % (MANUAL) 1 % (0); NUCLEATED RED BLOOD CELLS 1 /100 WBC (0); PLATELET COMMENT DECREASED; PROMYELOCYTES % (MANUAL) 2 % (0); SEGMENTED NEUTROPHILS % (MAN) 52 % (42-78); TOTAL CELLS COUNTED 100
[2019-02-08] MEDS: VALPROATE SODIUM IV SCH (18:44)
[2019-02-08] MEDS: NORMAL SALINE IV SCH (18:44)
[2019-02-08] MEDS: MEROPENEM 1 GM in NORMAL SALINE 50 ML IV SCH (18:45)
[2019-02-08] MEDS: ZONISAMIDE 100 MG CAPSULE NG SCH (18:46)
[2019-02-08] MEDS: AZITHROMYCIN 500 MG in DEXTROSE 5%-WATER 250 ML IV SCH (21:44)
[2019-02-08] MEDS: MONTELUKAST SODIUM 10 MG TABLET NG SCH (21:47)
[2019-02-08] MEDS: NORMAL SALINE 1000 ML 1,000 ML IV PRN (21:56)
[2019-02-08] MEDS: HYDROMORPHONE HCL INJ/PF 2 MG/ML AMPULE IV PRN (22:14)
[2019-02-09] MEDS: NORMAL SALINE IV SCH ×3 (01:45→19:51)
[2019-02-09] MEDS: VALPROATE SODIUM IV SCH ×3 (01:45→19:51)
[2019-02-09] MEDS: PROPOFOL 1,000 MG/100 ML INFUS..BTL IV PRN ×7 (02:20→23:53)
[2019-02-09] MEDS: NORMAL SALINE 1000 ML 1,000 ML IV PRN ×2 (04:00→12:12)
[2019-02-09 05:12] LABS: HEMATOCRIT 24.5 % (36.0-47.0); HEMOGLOBIN 8.4 g/dL (12.0-15.5); MEAN CORPUSCULAR HEMOGLOBIN 31.8 pg (27.0-33.4); MEAN CORPUSCULAR HGB CONC 34.4 g/dL (32.0-36.0); MEAN CORPUSCULAR VOLUME 92 fl (80-97); RED BLOOD COUNT 2.65 10^6/uL (3.72-5.28); RED CELL DISTRIBUTION WIDTH 17.7 % (11.5-14.0); WHITE BLOOD COUNT 4.8 10^3/uL (4.0-10.5)
[2019-02-09 05:20] LABS: ARTERIAL BLOOD BASE EXCESS -5.1 mmol/L; ARTERIAL BLOOD H2CO3 1.06 mmol/L (1.05-1.35); ARTERIAL BLOOD HCO3 19.7 mmol/L (20-24); ARTERIAL BLOOD O2 SATURATION 97.1 % (94-98); ARTERIAL BLOOD PCO2 35.3 mmHg (35-45); ARTERIAL BLOOD PH 7.36 (7.35-7.45); ARTERIAL BLOOD PO2 95.4 mmHg (80-100); ARTERIAL BLOOD TOTAL CO2 20.8 mmol/L (21-25)
[2019-02-09 05:21] LABS: ARTERIAL BLOOD FIO2 50%
[2019-02-09 05:45] LABS: PLATELET COUNT 93 10^3/uL (150-450)
[2019-02-09] MEDS: METHYLPREDNISOLONE INJ 40 MG/1 ML SDV IV SCH ×4 (05:49→23:19)
[2019-02-09 05:51] LABS: ABSOLUTE LYMPHOCYTES# (MANUAL) 1.1 10^3/uL (0.5-4.7); ABSOLUTE MONOCYTES # (MANUAL) 0.1 10^3/uL (0.1-1.4); ABSOLUTE NEUTROPHILS# (MANUAL) 3.6 10^3/uL (1.7-8.2); BAND NEUTROPHILS % (MANUAL) 27 % (3-5); BASOPHILS % (MANUAL) 0 % (0-2); EOSINOPHILS % (MANUAL) 0 % (0-6); LYMPHOCYTES % (MANUAL) 22 % (13-45); METAMYELOCYTES % (MANUAL) 4 % (0); MONOCYTES % (MANUAL) 2 % (3-13); MYELOCYTES % (MANUAL) 5 % (0); PLATELET COMMENT DECREASED; SEGMENTED NEUTROPHILS % (MAN) 40 % (42-78); TOTAL CELLS COUNTED 100; TOXIC GRANULATION 1+
[2019-02-09 05:52] LABS: ANISOCYTOSIS 1+; POIKILOCYTOSIS 1+; TEAR DROP CELLS 1+
[2019-02-09 05:53] LABS: ALANINE AMINOTRANSFERASE 34 U/L (9-52); ALBUMIN 2.4 g/dL (3.5-5.0); ALKALINE PHOSPHATASE 54 U/L (38-126); ANION GAP 11 (5-19); ASPARTATE AMINO TRANSFERASE 45 U/L (14-36); BILIRUBIN,DIRECT 0.5 mg/dL (0.0-0.4); BILIRUBIN,TOTAL 0.5 mg/dL (0.2-1.3); BLOOD UREA NITROGEN 36 mg/dL (7-20); CALCIUM 8.6 mg/dL (8.4-10.2); CARBON DIOXIDE 21 mmol/L (22-30); CHLORIDE 110 mmol/L (98-107); GLUCOSE 153 mg/dL (75-110); POTASSIUM 3.9 mmol/L (3.6-5.0); SODIUM 141.9 mmol/L (137-145)
[2019-02-09] MEDS: NORMAL SALINE INJ/PF 0.9% 10 ML SDV IV PRN (05:55)
[2019-02-09] MEDS: MEROPENEM 1 GM in NORMAL SALINE 50 ML IV SCH ×2 (05:59→20:00)
[2019-02-09] MEDS: HEPARIN SOD (PORCINE) 5,000 UNIT/ML 1 ML SYRINGE SUBCUT SCH ×3 (06:00→21:11)
[2019-02-09] MEDS ORDERED: ONDANSETRON HCL INJ/PF 4 MG/2 ML SDV IV PRN (07:30)
[2019-02-09] MEDS ORDERED: FLUOXETINE HCL 20 MG CAPSULE NG SCH (08:00)
[2019-02-09] MEDS: ACETYLCYSTEINE 20% SOLN 800 MG/4 ML VIAL.NEB NEB SCH ×2 (08:14→20:45)
[2019-02-09] MEDS: LEVALBUTEROL HCL NEB 0.63 MG/3 ML AMPUL NEB PRN ×2 (08:14→20:45)
[2019-02-09] MEDS: LEVOTHYROXINE SODIUM 0.05 MG TABLET NG SCH (09:18)
[2019-02-09] MEDS: HYDROMORPHONE HCL INJ/PF 2 MG/ML AMPULE IV PRN ×2 (09:58→21:13)
[2019-02-09] MEDS: PANTOPRAZOLE SODIUM 40 MG VIAL IV SCH ×2 (12:19→21:12)
[2019-02-09] MEDS: FLUOXETINE HCL 20 MG/5 ML UDCUP NG SCH (12:19)
[2019-02-09] MEDS: ZONISAMIDE 100 MG CAPSULE NG SCH ×2 (12:19→19:52)
[2019-02-09] MEDS: LORATADINE 10 MG TABLET NG SCH (12:19)
[2019-02-09 13:45] LABS: PATH REVIEW PATHOLOGIST REVIEWED
[2019-02-09] MEDS ORDERED: VANCOMYCIN HCL 1,500 MG in DEXTROSE 5%-WATER 250 ML IV SCH (18:00)
[2019-02-09] MEDS: FERROUS SULFATE LIQUID 300 MG/5 ML UDC NG SCH (19:51)
[2019-02-09] MEDS ORDERED: FUROSEMIDE INJ/PF 20 MG/2 ML SDV IV PRN (20:00)
[2019-02-09] MEDS: ALBUMIN HUMAN 12.5 GM/50 ML RTUINJ IV SCH ×2 (20:13→20:35)
[2019-02-09] MEDS: MONTELUKAST SODIUM 10 MG TABLET NG SCH (21:12)
[2019-02-09] MEDS: AZITHROMYCIN 500 MG in DEXTROSE 5%-WATER 250 ML IV SCH (21:13)
[2019-02-10] MEDS: NORMAL SALINE IV SCH ×3 (02:08→17:13)
[2019-02-10] MEDS: VALPROATE SODIUM IV SCH ×3 (02:08→17:13)
[2019-02-10] MEDS: PROPOFOL 1,000 MG/100 ML INFUS..BTL IV PRN ×8 (03:01→22:24)
[2019-02-10 04:24] LABS: ARTERIAL BLOOD BASE EXCESS -3.3 mmol/L; ARTERIAL BLOOD FIO2 45%; ARTERIAL BLOOD H2CO3 1.14 mmol/L (1.05-1.35); ARTERIAL BLOOD HCO3 21.6 mmol/L (20-24); ARTERIAL BLOOD O2 SATURATION 97.3 % (94-98); ARTERIAL BLOOD PCO2 37.9 mmHg (35-45); ARTERIAL BLOOD PH 7.37 (7.35-7.45); ARTERIAL BLOOD PO2 96.8 mmHg (80-100); ARTERIAL BLOOD TOTAL CO2 22.7 mmol/L (21-25)
[2019-02-10 04:26] LABS: HEMATOCRIT 24.7 % (36.0-47.0); HEMOGLOBIN 8.6 g/dL (12.0-15.5); MEAN CORPUSCULAR HEMOGLOBIN 32.5 pg (27.0-33.4); MEAN CORPUSCULAR HGB CONC 34.9 g/dL (32.0-36.0); MEAN CORPUSCULAR VOLUME 93 fl (80-97); PLATELET COUNT 114 10^3/uL (150-450); RED BLOOD COUNT 2.65 10^6/uL (3.72-5.28); RED CELL DISTRIBUTION WIDTH 17.5 % (11.5-14.0); WHITE BLOOD COUNT 8.1 10^3/uL (4.0-10.5)
[2019-02-10 04:47] LABS: ALANINE AMINOTRANSFERASE 28 U/L (9-52); ALBUMIN 2.7 g/dL (3.5-5.0); ALKALINE PHOSPHATASE 50 U/L (38-126); ANION GAP 9 (5-19); ASPARTATE AMINO TRANSFERASE 37 U/L (14-36); BILIRUBIN,DIRECT 0.7 mg/dL (0.0-0.4); BILIRUBIN,TOTAL 0.7 mg/dL (0.2-1.3); BLOOD UREA NITROGEN 33 mg/dL (7-20); CALCIUM 8.7 mg/dL (8.4-10.2); CARBON DIOXIDE 22 mmol/L (22-30); CHLORIDE 113 mmol/L (98-107); GLUCOSE 165 mg/dL (75-110); POTASSIUM 4.2 mmol/L (3.6-5.0); TOTAL PROTEIN 5.1 g/dL (6.3-8.2)
[2019-02-10] MEDS: HEPARIN SOD (PORCINE) 5,000 UNIT/ML 1 ML SYRINGE SUBCUT SCH ×3 (05:21→21:11)
[2019-02-10] MEDS: MEROPENEM 1 GM in NORMAL SALINE 50 ML IV SCH ×2 (05:28→17:13)
[2019-02-10] MEDS: NORMAL SALINE 1000 ML 1,000 ML IV PRN ×2 (05:28→14:56)
[2019-02-10 05:42] LABS: ABSOLUTE LYMPHOCYTES# (MANUAL) 1.2 10^3/uL (0.5-4.7); ABSOLUTE MONOCYTES # (MANUAL) 0.9 10^3/uL (0.1-1.4); BAND NEUTROPHILS % (MANUAL) 14 % (3-5); BASOPHILS % (MANUAL) 0 % (0-2); EOSINOPHILS % (MANUAL) 0 % (0-6); LYMPHOCYTES % (MANUAL) 15 % (13-45); METAMYELOCYTES % (MANUAL) 6 % (0); MONOCYTES % (MANUAL) 11 % (3-13); MYELOCYTES % (MANUAL) 7 % (0); PLATELET COMMENT DECREASED; PROMYELOCYTES % (MANUAL) 1 % (0); SEGMENTED NEUTROPHILS % (MAN) 46 % (42-78); TOTAL CELLS COUNTED 100
[2019-02-10 05:44] LABS: ANISOCYTOSIS 1+
[2019-02-10 05:45] LABS: HYPOCHROMASIA SLIGHT; POIKILOCYTOSIS SLIGHT; STOMATOCYTES 1+
[2019-02-10 05:55] LABS: ROULEAUX 3+
--- NOTE | 2019-02-10 07:24 | RADIOLOGY REPORT (SQ) ---
EXAM DESCRIPTION: XR CHEST 1 VIEW COMPLETED DATE/TME: 02/10/2019 06:00 CLINICAL HISTORY: 28 years Female, pna/resp failure COMPARISON: 2 days prior. NUMBER OF VIEWS/TECHNIQUE: 1/AP FINDINGS: Moderate hazy opacity-effusion of the left lower and mid hemithorax.Adequate appearing endotracheal tube. Adequate appearing enteric tube.Adequate appearing right jugular central line. Stimulator device of the upper left thorax with a nuchal leads.Normal cardiac silhouette size. No pneumothorax. Stable bony thorax. IMPRESSION: No significant change.
[2019-02-10] MEDS: ACETYLCYSTEINE 20% SOLN 800 MG/4 ML VIAL.NEB NEB SCH ×2 (08:14→21:53)
[2019-02-10] MEDS: LEVALBUTEROL HCL NEB 0.63 MG/3 ML AMPUL NEB PRN ×2 (08:14→21:53)
[2019-02-10] MEDS: MIDAZOLAM HCL 50 MG/100 ML RTUINJ IV PRN ×3 (08:35→22:23)
[2019-02-10] MEDS: FLUOXETINE HCL 20 MG/5 ML UDCUP NG SCH (09:26)
[2019-02-10] MEDS: PANTOPRAZOLE SODIUM 40 MG VIAL IV SCH ×2 (09:26→21:18)
[2019-02-10] MEDS: LORATADINE 10 MG TABLET NG SCH (09:26)
[2019-02-10] MEDS: FERROUS SULFATE LIQUID 300 MG/5 ML UDC NG SCH ×2 (09:26→17:13)
[2019-02-10] MEDS: LEVOTHYROXINE SODIUM 0.05 MG TABLET NG SCH (09:26)
[2019-02-10] MEDS: ZONISAMIDE 100 MG CAPSULE NG SCH ×2 (09:26→17:13)
[2019-02-10] MEDS: VANCOMYCIN HCL 1,000 MG in DEXTROSE 5%-WATER 250 ML IV SCH ×2 (10:04→22:26)
--- NOTE | 2019-02-10 16:17 | PDOC PROGRESS REPORT ---
Subjective Progress Note for:: 02/10/19 Subjective:: Assumed care today. Reviewed chart and ICU course. This is a 19-year-old female with a past medical history of developmental delay who was brought in due to fever, cough and shortness of breath. She was noted to be hypoxic ever tachypneic and was intubated upon presentation. She was noted to have a left lower lobe pneumonia with left sided effusion. She was als o initially noted to be in septic shock and acute renal failure. No acute event overnight. Off Levophed. She remains intubated and sedated. Currently being on 45% FiO2. Reason For Visit: BILATERAL PNEUMONIA,SEPTIC SHOCK,ACUTE RENAL Physical Exam Vital Signs: Temp Pulse Resp BP Pulse Ox 97.9 F 61 19 95/57 L 95 02/10/19 12:00 02/10/19 12:00 02/10/19 12:00 02/10/19 12:00 02/10/19 12:00 Intake & Output 02/09/19 02/10/19 02/11/19 06:59 06:59 06:59 Intake Total 1850 3250 427 Output Total 1985 1935 195 Balance -135 1315 232 Weight 189 lb 2.506 oz 216 lb 11.43 oz General appearance: PRESENT: other - Intubated, sedated Head exam: PRESENT: atraumatic, normocephalic Eye exam: PRESENT: conjunctiva pink, EOMI, PERRLA. ABSENT: scleral icterus Ear exam: PRESENT: normal external ear exam Mouth exam: PRESENT: moist, tongue midline Neck exam: ABSENT: carotid bruit, JVD, lymphadenopathy, thyromegaly Respiratory exam: PRESENT: decreased breath sounds, rales. ABSENT: rhonchi, wheezes Cardiovascular exam: PRESENT: RRR, systolic murmur. ABSENT: rubs Pulses: PRESENT: normal dorsalis pedis pul GI/Abdominal exam: PRESENT: normal bowel sounds, soft. ABSENT: distended, guarding, mass, organolmegaly, rebound, tenderness Rectal exam: PRESENT: deferred Neurological exam: PRESENT: other - Intubated, sedated Results Laboratory Results: 02/10/19 04:01 02/10/19 04:01 02/10/19 02/10/19 02/10/19 04:01 04:01 04:01 WBC 8.1 RBC 2.65 L Hgb 8.6 L Hct 24.7 L MCV 93 MCH 32.5 MCHC 34.9 RDW 17.5 H Plt Count 114 L Seg Neutrophils % Not Reportable Lymphocytes % Not Reportable Monocytes % Not Reportable Eosinophils % Not Reportable Basophils % Not Reportable Absolute Neutrophils Not Reportable Absolute Lymphocytes Not Reportable Absolute Monocytes Not Reportable Absolute Eosinophils Not Reportable Absolute Basophils Not Reportable Carbonic Acid 1.14 HCO3/H2CO3 Ratio 18:1 ABG pH 7.37 ABG pCO2 37.9 ABG pO2 96.8 ABG HCO3 21.6 ABG O2 Saturation 97.3 ABG Base Excess -3.3 FiO2 45% Sodium 144.0 Potassium 4.2 Chloride 113 H Carbon Dioxide 22 Anion Gap 9 BUN 33 H Creatinine 1.03 Est GFR ( Amer) > 60 Est GFR (Non-Af Amer) > 60 Glucose 165 H Calcium 8.7 Magnesium 2.2 Total Bilirubin 0.7 AST 37 H ALT 28 Alkaline Phosphatase 50 Total Protein 5.1 L Albumin 2.7 L 02/08/19 05:28 Catheterized Urine Urine Culture - Final 4,000 col/ml 02/07/19 02/07/19 23:00 23:00 Troponin I 0.185 NT-Pro-B Natriuret Pep 3020 H Impressions: Chest X-Ray 02/10/19 06:00 IMPRESSION: No significant change. Assessment and Plan - Diagnosis (1) Acute respiratory failure with hypoxia Is this a current diagnosis for this admission?: Yes Plan: Secondary to left lower lobe pneumonia with left-sided pleural effusion. Currently intubated at 45% FiO2. (2) Acute renal failure Qualifiers: Acute renal failure type: unspecified Qualified Code(s): N17.9 - Acute kidney failure, unspecified Is this a current diagnosis for this admission?: Yes Plan: This resolved. Likely from a combination of prerenal CAROLINE and septic ATN. (3) Septic shock Is this a current diagnosis for this admission?: Yes Plan: Secondary to pneumonia. Off vasopressor. Continue IV antibiotics. (4) Seizure disorder Is this a current diagnosis for this admission?: Yes Plan: Continue Depakote. (5) Pneumonia Is this a current diagnosis for this admission?: Yes Plan: Possibly coming up for pneumonia with aspiration component. Currently on azithromycin, vancomycin and meropenem. No sputum culture done so far, will order one. - Time Time Spent with patient: 25-34 minutes
--- NOTE | 2019-02-10 16:21 | RADIOLOGY REPORT (SQ) ---
EXAM DESCRIPTION: CT CHEST WITHOUT COMPLETED DATE/TIME: 02/10/2019 4:11 pm REASON FOR STUDY: PLEURAL EFFUSION COMPARISON: None. TECHNIQUE: CT scan performed of the chest without intravenous contrast. Images reviewed with lung, soft tissue and bone windows. Reconstructed coronal and sagittal MPR images reviewed. All images st ored on PACS. All CT scanners at this facility use dose modulation, iterative reconstruction, and/or weight based d osing when appropriate to reduce radiation dose to as low as reasonably achievable (ALARA). [facility]: Dose Right [facility]: CareDose [facility]: Dose Right [facility]: Teradose 4D [facility]: [employer] RADIATION DOSE: CT Rad equipment meets quality standard of care and radiation dose reduction techniq ues were employed. CTDIvol: 18.3 mGy. DLP: 493 mGy-cm. mGy. LIMITATIONS: No technical limitations. FINDINGS: LUNGS AND PLEURA: There is a small left pleural effusion estimated volume less than 500 cc . Trace right pleural effusion. There is dense consolidation with air bronchograms in the left lowe r lobe. Subsegmental airspace disease in the right lower lobe. No pneumothorax. HILAR AND MEDIASTINAL STRUCTURES: No identified masses or abnormal nodes. No obvious aneurysm. HEART AND VASCULAR STRUCTURES: No aneurysm. No pericardial effusion. UPPER ABDOMEN: No significant findings. Limited exam. THYROID AND OTHER SOFT TISSUES: No masses. No adenopathy. BONES: No significant finding. HARDWARE: None in the chest. OTHER: Central line tip in the cavoatrial junction. Endotracheal tube position appropriate. Nasogas tric tube tip mid esophagus. IMPRESSION: 1. Extensive consolidation in the left lower lobe consistent with pneumonia. Small left pleural effu braxton. 2. High position of nasogastric tube. Recommend repositioning. TECHNICAL DOCUMENTATION: JOB ID: [id number] Quality ID # [id number]: Final reports with documentation of one or more dose reduction techniques (e.g., Au tomated exposure control, adjustment of the mA and/or kV according to patient size, use of iterative reconstruction technique) 2010 [employer]- All Rights Reserved Reading location - IP/workstation name: [email or web address]-
[2019-02-10] MEDS: METHYLPREDNISOLONE INJ 40 MG/1 ML SDV IV SCH ×2 (16:23→21:18)
[2019-02-10] MEDS: MONTELUKAST SODIUM 10 MG TABLET NG SCH (21:18)
[2019-02-10] MEDS: AZITHROMYCIN 500 MG in DEXTROSE 5%-WATER 250 ML IV SCH (21:19)
[2019-02-10] MEDS: FENTANYL CITRATE INJ/PF 100 MCG/2 ML AMPUL IV PRN (22:22)
[2019-02-11] MEDS: PROPOFOL 1,000 MG/100 ML INFUS..BTL IV PRN ×9 (01:31→22:45)
[2019-02-11] MEDS: NORMAL SALINE 1000 ML 1,000 ML IV PRN ×3 (02:09→19:49)
[2019-02-11] MEDS: NORMAL SALINE IV SCH ×3 (03:16→17:08)
[2019-02-11] MEDS: VALPROATE SODIUM IV SCH ×3 (03:16→17:08)
[2019-02-11 03:33] LABS: ARTERIAL BLOOD BASE EXCESS -6.1 mmol/L; ARTERIAL BLOOD O2 SATURATION 98.2 % (94-98); ARTERIAL BLOOD PCO2 29.9 mmHg (35-45); ARTERIAL BLOOD PO2 112.7 mmHg (80-100); ARTERIAL BLOOD TOTAL CO2 18.9 mmol/L (21-25)
[2019-02-11 03:35] LABS: ARTERIAL BLOOD FIO2 45%
[2019-02-11 03:41] LABS: HEMATOCRIT 23.9 % (36.0-47.0); HEMOGLOBIN 8.2 g/dL (12.0-15.5); MEAN CORPUSCULAR HEMOGLOBIN 31.8 pg (27.0-33.4); MEAN CORPUSCULAR HGB CONC 34.3 g/dL (32.0-36.0); MEAN CORPUSCULAR VOLUME 93 fl (80-97); PLATELET COUNT 205 10^3/uL (150-450); RED BLOOD COUNT 2.58 10^6/uL (3.72-5.28); RED CELL DISTRIBUTION WIDTH 17.5 % (11.5-14.0)
[2019-02-11 03:55] LABS: ALANINE AMINOTRANSFERASE 42 U/L (9-52); ALBUMIN 2.5 g/dL (3.5-5.0); ALKALINE PHOSPHATASE 53 U/L (38-126); ANION GAP 6 (5-19); ASPARTATE AMINO TRANSFERASE 47 U/L (14-36); BILIRUBIN,DIRECT 0.6 mg/dL (0.0-0.4); BILIRUBIN,TOTAL 0.6 mg/dL (0.2-1.3); BLOOD UREA NITROGEN 30 mg/dL (7-20); CALCIUM 8.5 mg/dL (8.4-10.2); CARBON DIOXIDE 21 mmol/L (22-30); CHLORIDE 115 mmol/L (98-107); GLUCOSE 149 mg/dL (75-110); POTASSIUM 4.4 mmol/L (3.6-5.0); SODIUM 142.3 mmol/L (137-145)
[2019-02-11 04:16] LABS: ABSOLUTE LYMPHOCYTES# (MANUAL) 1.4 10^3/uL (0.5-4.7); ABSOLUTE MONOCYTES # (MANUAL) 0.5 10^3/uL (0.1-1.4); ABSOLUTE NEUTROPHILS# (MANUAL) 7.2 10^3/uL (1.7-8.2); BAND NEUTROPHILS % (MANUAL) 6 % (3-5); BASOPHILS % (MANUAL) 0 % (0-2); EOSINOPHILS % (MANUAL) 0 % (0-6); LYMPHOCYTES % (MANUAL) 15 % (13-45); METAMYELOCYTES % (MANUAL) 7 % (0); MONOCYTES % (MANUAL) 5 % (3-13); MYELOCYTES % (MANUAL) 6 % (0); NUCLEATED RED BLOOD CELLS 1 /100 WBC (0); PROMYELOCYTES % (MANUAL) 1 % (0); SEGMENTED NEUTROPHILS % (MAN) 60 % (42-78); TOTAL CELLS COUNTED 100
[2019-02-11 04:18] LABS: ANISOCYTOSIS 1+; HYPOCHROMASIA SLIGHT; PLATELET COMMENT ADEQUATE; POIKILOCYTOSIS 1+; ROULEAUX 4+; STOMATOCYTES SLIGHT
[2019-02-11] MEDS: MEROPENEM 1 GM in NORMAL SALINE 50 ML IV SCH ×2 (05:43→17:08)
[2019-02-11] MEDS: HEPARIN SOD (PORCINE) 5,000 UNIT/ML 1 ML SYRINGE SUBCUT SCH ×3 (05:44→21:40)
[2019-02-11] MEDS: MIDAZOLAM HCL 50 MG/100 ML RTUINJ IV PRN ×3 (05:44→22:45)
--- NOTE | 2019-02-11 07:37 | RADIOLOGY REPORT (SQ) ---
EXAM DESCRIPTION: XR CHEST 1 VIEW COMPLETED DATE/TME: 02/11/2019 06:00 CLINICAL HISTORY: 28 years Female, resp failure COMPARISON: Same day. NUMBER OF VIEWS/TECHNIQUE: 1/AP FINDINGS: Moderate opacity-fusion of the left lower and mid hemithorax.Adequate appearing endotracheal tube. Adequate appearing enteric tube partially obscured. Adequate appearing right jugular central line. Stimulator device at the left upper hemithorax with left nuchal leads.Normal cardiac silhouette size. No pneumothorax. Stable bony thorax. IMPRESSION: No significant change.
[2019-02-11] MEDS: LEVALBUTEROL HCL NEB 0.63 MG/3 ML AMPUL NEB PRN ×2 (08:17→20:49)
[2019-02-11] MEDS: ACETYLCYSTEINE 20% SOLN 800 MG/4 ML VIAL.NEB NEB SCH ×2 (08:17→20:50)
[2019-02-11] MEDS: METHYLPREDNISOLONE INJ 40 MG/1 ML SDV IV SCH ×2 (09:23→21:41)
[2019-02-11] MEDS: LEVOTHYROXINE SODIUM 0.05 MG TABLET NG SCH (09:23)
[2019-02-11] MEDS: FLUOXETINE HCL 20 MG/5 ML UDCUP NG SCH (09:23)
[2019-02-11] MEDS: FERROUS SULFATE LIQUID 300 MG/5 ML UDC NG SCH ×2 (09:23→17:08)
[2019-02-11] MEDS: LORATADINE 10 MG TABLET NG SCH (09:23)
[2019-02-11] MEDS: ZONISAMIDE 100 MG CAPSULE NG SCH ×2 (09:23→17:08)
[2019-02-11] MEDS: SENNOSIDES/DOCUSATE 8.6-50 MG 1 EACH TABLET NG SCH (09:24)
[2019-02-11] MEDS: FENTANYL CITRATE INJ/PF 100 MCG/2 ML AMPUL IV PRN ×3 (09:25→20:04)
[2019-02-11] MEDS: VANCOMYCIN HCL 1,000 MG in DEXTROSE 5%-WATER 250 ML IV SCH ×2 (09:44→22:46)
[2019-02-11 10:33] LABS: VANCOMYCIN,TROUGH 19.4 ug/mL (5.0-20.0)
[2019-02-11] MEDS: FUROSEMIDE INJ/PF 20 MG/2 ML SDV IV SCH ×2 (12:41→21:41)
--- NOTE | 2019-02-11 14:51 | PDOC PROGRESS REPORT ---
Subjective Progress Note for:: 02/11/19 Subjective:: 02/10: Assumed care today. Reviewed chart and ICU course. This is a 19-year-old female with a past medical history of developmental delay who was brought in due to fever, cough and shortness of breath. She was noted to be hypoxic ever tachypneic and was intubated upon presentation. She was noted to have a left lower lobe pneumonia with left sided effusion. She was also initially noted to be in septic shock and acute renal failure. No acute event overnight. Off Levophed. She remains intubated and sedated. Currently being on 45% FiO2. 02/11: No acute event overnight. Repeat chest CT showed extensive left lower lobe consolidation with minimal pleural effusion. She remains sedated and intubated. She continues to have yellowish secretions from the ET but less copious compared to yesterday. Will be started on tube feedings today. Reason For Visit: BILATERAL PNEUMONIA,SEPTIC SHOCK,ACUTE RENAL Physical Exam Vital Signs: Temp Pulse Resp BP Pulse Ox 98.1 F 55 L 26 H 124/77 95 02/11/19 14:04 02/11/19 12:00 02/11/19 14:04 02/11/19 14:04 02/11/19 14:04 Intake & Output 02/10/19 02/11/19 02/12/19 06:59 06:59 06:59 Intake Total 3250 3801 1612 Output Total 1935 1515 400 Balance 1315 2286 1212 Weight 216 lb 11.43 oz 224 lb 6.889 oz General appearance: PRESENT: other - Intubated, sedated Head exam: PRESENT: atraumatic, normocephalic Eye exam: PRESENT: conjunctiva pink, EOMI, PERRLA. ABSENT: scleral icterus Ear exam: PRESENT: normal external ear exam Neck exam: ABSENT: carotid bruit, JVD, lymphadenopathy, thyromegaly Respiratory exam: PRESENT: decreased breath sounds, rales. ABSENT: rhonchi, wheezes Cardiovascular exam: PRESENT: RRR. ABSENT: diastolic murmur, rubs, systolic murmur Pulses: PRESENT: normal dorsalis pedis pul GI/Abdominal exam: PRESENT: normal bowel sounds, soft. ABSENT: distended, guarding, mass, organolmegaly, rebound, tenderness Rectal exam: PRESENT: deferred Neurological exam: PRESENT: other - Intubated, sedated Results Laboratory Results: 02/11/19 03:25 02/11/19 03:25 02/11/19 02/11/19 02/11/19 03:25 03:25 03:25 WBC 9.0 RBC 2.58 L Hgb 8.2 L Hct 23.9 L MCV 93 MCH 31.8 MCHC 34.3 RDW 17.5 H Plt Count 205 Seg Neutrophils % Not Reportable Lymphocytes % Not Reportable Monocytes % Not Reportable Eosinophils % Not Reportable Basophils % Not Reportable Absolute Neutrophils Not Reportable Absolute Lymphocytes Not Reportable Absolute Monocytes Not Reportable Absolute Eosinophils Not Reportable Absolute Basophils Not Reportable Carbonic Acid 0.90 L HCO3/H2CO3 Ratio 20:1 ABG pH 7.40 ABG pCO2 29.9 L ABG pO2 112.7 H ABG HCO3 18.0 L ABG O2 Saturation 98.2 H ABG Base Excess -6.1 FiO2 45% Sodium 142.3 Potassium 4.4 Chloride 115 H Carbon Dioxide 21 L Anion Gap 6 BUN 30 H Creatinine 0.89 Est GFR ( Amer) > 60 Est GFR (Non-Af Amer) > 60 Glucose 149 H Calcium 8.5 Magnesium 2.1 Total Bilirubin 0.6 AST 47 H ALT 42 Alkaline Phosphatase 53 Total Protein 5.0 L Albumin 2.5 L 02/07/19 02/07/19 23:00 23:00 Troponin I 0.185 NT-Pro-B Natriuret Pep 3020 H Impressions: Chest CT 02/10/19 11:52 IMPRESSION: 1. Extensive consolidation in the left lower lobe consistent with pneumonia. Small left pleural effusion. 2. High position of nasogastric tube. Recommend repositioning. Chest X-Ray 02/11/19 06:00 IMPRESSION: No significant change. Assessment and Plan - Diagnosis (1) Acute respiratory failure with hypoxia Is this a current diagnosis for this admission?: Yes Plan: Secondary to left lower lobe pneumonia/consolidation with left-sided pleural effusion. Currently intubated at 45% FiO2. (2) Acute renal failure Qualifiers: Acute renal failure type: unspecified Qualified Code(s): N17.9 - Acute kidney failure, unspecified Is this a current diagnosis for this admission?: Yes Plan: This resolved. Likely from a combination of prerenal CAROLINE and septic ATN. (3) Septic shock Is this a current diagnosis for this admission?: Yes Plan: Secondary to pneumonia. Off vasopressor. Continue IV antibiotics. (4) Seizure disorder Is this a current diagnosis for this admission?: Yes Plan: Continue Depakote. (5) Pneumonia Is this a current diagnosis for this admission?: Yes Plan: Possibly from community-acquired pneumonia with aspiration component. Currently on azithromycin, vancomycin and meropenem. - Time Time Spent with patient: 25-34 minutes
[2019-02-11] MEDS: AZITHROMYCIN 500 MG in DEXTROSE 5%-WATER 250 ML IV SCH (21:40)
[2019-02-11] MEDS: MONTELUKAST SODIUM 10 MG TABLET NG SCH (21:41)
[2019-02-12] MEDS: FENTANYL CITRATE INJ/PF 100 MCG/2 ML AMPUL IV PRN ×4 (00:41→20:15)
[2019-02-12] MEDS: NORMAL SALINE IV SCH ×3 (01:36→17:59)
[2019-02-12] MEDS: VALPROATE SODIUM IV SCH ×3 (01:36→17:59)
[2019-02-12] MEDS: PROPOFOL 1,000 MG/100 ML INFUS..BTL IV PRN ×8 (01:39→22:21)
[2019-02-12 03:39] LABS: ARTERIAL BLOOD FIO2 40%; ARTERIAL BLOOD HCO3 18.7 mmol/L (20-24); ARTERIAL BLOOD O2 SATURATION 95.9 % (94-98); ARTERIAL BLOOD PCO2 29.8 mmHg (35-45); ARTERIAL BLOOD PH 7.42 (7.35-7.45); ARTERIAL BLOOD PO2 78.3 mmHg (80-100); ARTERIAL BLOOD TOTAL CO2 19.6 mmol/L (21-25)
[2019-02-12 03:41] LABS: HEMATOCRIT 24.2 % (36.0-47.0); HEMOGLOBIN 8.1 g/dL (12.0-15.5); MEAN CORPUSCULAR HEMOGLOBIN 31.1 pg (27.0-33.4); MEAN CORPUSCULAR HGB CONC 33.4 g/dL (32.0-36.0); MEAN CORPUSCULAR VOLUME 93 fl (80-97); PLATELET COUNT 219 10^3/uL (150-450); RED CELL DISTRIBUTION WIDTH 17.8 % (11.5-14.0); WHITE BLOOD COUNT 11.7 10^3/uL (4.0-10.5)
[2019-02-12 04:13] LABS: ABSOLUTE LYMPHOCYTES# (MANUAL) 2.6 10^3/uL (0.5-4.7); ABSOLUTE MONOCYTES # (MANUAL) 1.1 10^3/uL (0.1-1.4); BASOPHILS % (MANUAL) 0 % (0-2); EOSINOPHILS % (MANUAL) 0 % (0-6); LYMPHOCYTES % (MANUAL) 22 % (13-45); METAMYELOCYTES % (MANUAL) 13 % (0); MONOCYTES % (MANUAL) 9 % (3-13); TOTAL CELLS COUNTED 100
[2019-02-12 04:14] LABS: ABSOLUTE NEUTROPHILS# (MANUAL) 8.1 10^3/uL (1.7-8.2); BAND NEUTROPHILS % (MANUAL) 11 % (3-5); MYELOCYTES % (MANUAL) 5 % (0); SEGMENTED NEUTROPHILS % (MAN) 40 % (42-78)
[2019-02-12 04:15] LABS: ANION GAP 8 (5-19); BLOOD UREA NITROGEN 30 mg/dL (7-20); CALCIUM 8.5 mg/dL (8.4-10.2); CARBON DIOXIDE 22 mmol/L (22-30); CHLORIDE 114 mmol/L (98-107); GLUCOSE 168 mg/dL (75-110); PLATELET COMMENT ADEQUATE; POTASSIUM 4.3 mmol/L (3.6-5.0); SODIUM 143.9 mmol/L (137-145); TOXIC GRANULATION 2+
[2019-02-12 04:16] LABS: ROULEAUX 3+; STOMATOCYTES 1+
[2019-02-12 04:17] LABS: ANISOCYTOSIS 1+; POLYCHROMASIA SLIGHT
[2019-02-12] MEDS: MIDAZOLAM HCL 50 MG/100 ML RTUINJ IV PRN ×6 (04:27→23:42)
[2019-02-12] MEDS: MEROPENEM 1 GM in NORMAL SALINE 50 ML IV SCH ×2 (05:32→17:59)
[2019-02-12] MEDS: HEPARIN SOD (PORCINE) 5,000 UNIT/ML 1 ML SYRINGE SUBCUT SCH ×3 (05:32→21:32)
[2019-02-12] MEDS: NORMAL SALINE 1000 ML 1,000 ML IV PRN ×2 (06:52→14:51)
--- NOTE | 2019-02-12 07:46 | RADIOLOGY REPORT (SQ) ---
EXAM DESCRIPTION: XR CHEST 1 VIEW COMPLETED DATE/TME: 02/12/2019 06:00 CLINICAL HISTORY: 28 years Female, resp failure COMPARISON: One day prior. NUMBER OF VIEWS/TECHNIQUE: 1/AP FINDINGS: Moderate mixed airspace and interstitial opacities. Moderate opacity-effusion of the left and mid hemithorax. Adequate appearing endotracheal tube. Adequate appearing enteric tube partially obscured. Adequate appearing right jugular central line. Left thoracic stimulator device with left nuchal leads. Normal cardiac silhouette size. No pneumothorax. Stable bony thorax. IMPRESSION: No significant change.
[2019-02-12] MEDS: LEVALBUTEROL HCL NEB 0.63 MG/3 ML AMPUL NEB PRN ×2 (08:13→19:50)
[2019-02-12] MEDS: ACETYLCYSTEINE 20% SOLN 800 MG/4 ML VIAL.NEB NEB SCH ×2 (08:13→19:50)
[2019-02-12] MEDS: FUROSEMIDE INJ/PF 20 MG/2 ML SDV IV SCH ×2 (09:33→21:31)
[2019-02-12] MEDS: FERROUS SULFATE LIQUID 300 MG/5 ML UDC NG SCH ×2 (09:33→17:59)
[2019-02-12] MEDS: METHYLPREDNISOLONE INJ 40 MG/1 ML SDV IV SCH ×2 (09:33→21:32)
[2019-02-12] MEDS: LORATADINE 10 MG TABLET NG SCH (09:33)
[2019-02-12] MEDS: FLUOXETINE HCL 20 MG/5 ML UDCUP NG SCH (09:33)
[2019-02-12] MEDS: LEVOTHYROXINE SODIUM 0.05 MG TABLET NG SCH (09:33)
[2019-02-12] MEDS: ZONISAMIDE 100 MG CAPSULE NG SCH ×2 (09:34→17:59)
[2019-02-12] MEDS: VANCOMYCIN HCL 1,000 MG in DEXTROSE 5%-WATER 250 ML IV SCH ×2 (09:35→22:21)
--- NOTE | 2019-02-12 14:05 | PDOC PROGRESS REPORT ---
Subjective Progress Note for:: 02/12/19 Subjective:: 02/10: Assumed care today. Reviewed chart and ICU course. This is a 19-year-old female with a past medical history of developmental delay who was brought in due to fever, cough and shortness of breath. She was noted to be hypoxic ever tachypneic and was intubated upon presentation. She was noted to have a left lower lobe pneumonia with left sided effusion. She was also initially noted to be in septic shock and acute renal failure. No acute event overnight. Off Levophed. She remains intubated and sedated. Currently being on 45% FiO2. 02/11: She remains intubated and sedated. Repeat chest CT showed extensive left lower lobe consolidation with minimal pleural effusion. She remains sedated and intubated. She continues to have yellowish secretions from the ET but less copious compared to yesterday. Will be started on tube feedings today. 02/12: No acute event overnight. Patient remains intubated and sedated. She is currently on 40% FiO2. Patient will likely be ventilator dependent in the next few days with her extensive left lower lobe consolidation. Reason For Visit: BILATERAL PNEUMONIA,SEPTIC SHOCK,ACUTE RENAL Physical Exam Vital Signs: Temp Pulse Resp BP Pulse Ox 98.2 F 57 L 19 108/62 92 02/12/19 12:00 02/12/19 12:00 02/12/19 12:00 02/12/19 12:00 02/12/19 12:12 Intake & Output 02/11/19 02/12/19 02/13/19 06:59 06:59 06:59 Intake Total 3801 4883 595 Output Total 1515 3525 575 Balance 2286 1358 20 Weight 224 lb 6.889 oz 228 lb 9.91 oz 228 lb 9.91 oz General appearance: PRESENT: other - Intubated, sedated Head exam: PRESENT: atraumatic, normocephalic Eye exam: PRESENT: conjunctiva pink, EOMI, PERRLA. ABSENT: scleral icterus Ear exam: PRESENT: normal external ear exam Mouth exam: PRESENT: moist, tongue midline Neck exam: ABSENT: carotid bruit, JVD, lymphadenopathy, thyromegaly Respiratory exam: PRESENT: decreased breath sounds, rales, rhonchi. ABSENT: wheezes Cardiovascular exam: PRESENT: RRR. ABSENT: diastolic murmur, rubs, systolic murmur Pulses: PRESENT: normal dorsalis pedis pul GI/Abdominal exam: PRESENT: normal bowel sounds, soft. ABSENT: distended, guarding, mass, organolmegaly, rebound, tenderness Rectal exam: PRESENT: deferred Neurological exam: PRESENT: other - Intubated, sedated Results Laboratory Results: 02/12/19 03:30 02/12/19 03:30 02/12/19 02/12/19 02/12/19 03:30 03:30 03:30 WBC 11.7 H RBC 2.60 L Hgb 8.1 L Hct 24.2 L MCV 93 MCH 31.1 MCHC 33.4 RDW 17.8 H Plt Count 219 Seg Neutrophils % Not Reportable Lymphocytes % Not Reportable Monocytes % Not Reportable Eosinophils % Not Reportable Basophils % Not Reportable Absolute Neutrophils Not Reportable Absolute Lymphocytes Not Reportable Absolute Monocytes Not Reportable Absolute Eosinophils Not Reportable Absolute Basophils Not Reportable Carbonic Acid 0.90 L HCO3/H2CO3 Ratio 20:1 ABG pH 7.42 ABG pCO2 29.8 L ABG pO2 78.3 L ABG HCO3 18.7 L ABG O2 Saturation 95.9 ABG Base Excess -5.0 FiO2 40% Sodium 143.9 Potassium 4.3 Chloride 114 H Carbon Dioxide 22 Anion Gap 8 BUN 30 H Creatinine 0.83 Est GFR ( Amer) > 60 Est GFR (Non-Af Amer) > 60 Glucose 168 H Calcium 8.5 Magnesium 2.0 02/10/19 20:19 Sputum Gram Stain - Final 02/10/19 20:19 Sputum Sputum Culture - Final C.albicans/C.dubliniensis Normal Diana Absent 02/07/19 02/07/19 23:00 23:00 Troponin I 0.185 NT-Pro-B Natriuret Pep 3020 H Impressions: Chest CT 02/10/19 11:52 IMPRESSION: 1. Extensive consolidation in the left lower lobe consistent with pneumonia. Small left pleural effusion. 2. High position of nasogastric tube. Recommend repositioning. Chest X-Ray 02/12/19 06:00 IMPRESSION: No significant change. Assessment and Plan - Diagnosis (1) Acute respiratory failure with hypoxia Is this a current diagnosis for this admission?: Yes Plan: 02/11: Secondary to left lower lobe pneumonia/consolidation with left-sided pleural effusion. Currently intubated at 45% FiO2. 02/12: Patient remains intubated and sedated. She is currently on 40% FiO2. Patient will likely be ventilator dependent in the next few days with her extensive left lower lobe consolidation. (2) Acute renal failure Qualifiers: Acute renal failure type: unspecified Qualified Code(s): N17.9 - Acute kidney failure, unspecified Is this a current diagnosis for this admission?: Yes Plan: Resolved. Likely from a combination of prerenal CAROLINE and septic ATN. (3) Septic shock Is this a current diagnosis for this admission?: Yes Plan: Resolved. Secondary to pneumonia. Off vasopressor. Continue IV antibiotics. (4) Seizure disorder Is this a current diagnosis for this admission?: Yes Plan: Continue Depakote. (5) Pneumonia Is this a current diagnosis for this admission?: Yes Plan: Possibly from community-acquired pneumonia with aspiration component. Currently on azithromycin, vancomycin and meropenem. - Time Time Spent with patient: 25-34 minutes
[2019-02-12] MEDS: MONTELUKAST SODIUM 10 MG TABLET NG SCH (21:32)
[2019-02-12] MEDS: AZITHROMYCIN 500 MG in DEXTROSE 5%-WATER 250 ML IV SCH (21:32)
[2019-02-13] MEDS: PROPOFOL 1,000 MG/100 ML INFUS..BTL IV PRN ×8 (01:10→22:11)
[2019-02-13] MEDS: NORMAL SALINE IV SCH ×3 (01:11→17:31)
[2019-02-13] MEDS: VALPROATE SODIUM IV SCH ×3 (01:11→17:31)
[2019-02-13] MEDS: NORMAL SALINE 1000 ML 1,000 ML IV PRN ×3 (02:06→20:31)
[2019-02-13] MEDS: MIDAZOLAM HCL 50 MG/100 ML RTUINJ IV PRN ×8 (02:35→23:32)
[2019-02-13 03:49] LABS: ARTERIAL BLOOD BASE EXCESS -2.8 mmol/L; ARTERIAL BLOOD H2CO3 1.08 mmol/L (1.05-1.35); ARTERIAL BLOOD HCO3 21.6 mmol/L (20-24); ARTERIAL BLOOD PCO2 35.8 mmHg (35-45); ARTERIAL BLOOD TOTAL CO2 22.7 mmol/L (21-25)
[2019-02-13 03:50] LABS: ARTERIAL BLOOD FIO2 45%
[2019-02-13 04:01] LABS: HEMATOCRIT 23.7 % (36.0-47.0); MEAN CORPUSCULAR HEMOGLOBIN 31.6 pg (27.0-33.4); MEAN CORPUSCULAR HGB CONC 33.5 g/dL (32.0-36.0); MEAN CORPUSCULAR VOLUME 94 fl (80-97); RED BLOOD COUNT 2.52 10^6/uL (3.72-5.28); RED CELL DISTRIBUTION WIDTH 17.6 % (11.5-14.0); WHITE BLOOD COUNT 14.6 10^3/uL (4.0-10.5)
[2019-02-13] MEDS: FENTANYL CITRATE INJ/PF 100 MCG/2 ML AMPUL IV PRN ×4 (04:08→20:30)
[2019-02-13 04:12] LABS: ANION GAP 7 (5-19); BLOOD UREA NITROGEN 27 mg/dL (7-20); CALCIUM 8.5 mg/dL (8.4-10.2); CARBON DIOXIDE 22 mmol/L (22-30); CHLORIDE 113 mmol/L (98-107); GLUCOSE 137 mg/dL (75-110); POTASSIUM 4.5 mmol/L (3.6-5.0); SODIUM 142.4 mmol/L (137-145)
[2019-02-13 04:31] LABS: ABSOLUTE LYMPHOCYTES# (MANUAL) 2.3 10^3/uL (0.5-4.7); ABSOLUTE MONOCYTES # (MANUAL) 1.2 10^3/uL (0.1-1.4); ABSOLUTE NEUTROPHILS# (MANUAL) 11.1 10^3/uL (1.7-8.2); BAND NEUTROPHILS % (MANUAL) 10 % (3-5); BASOPHILS % (MANUAL) 0 % (0-2); EOSINOPHILS % (MANUAL) 0 % (0-6); LYMPHOCYTES % (MANUAL) 16 % (13-45); METAMYELOCYTES % (MANUAL) 12 % (0); MONOCYTES % (MANUAL) 8 % (3-13); MYELOCYTES % (MANUAL) 4 % (0); SEGMENTED NEUTROPHILS % (MAN) 50 % (42-78); TOTAL CELLS COUNTED 100
[2019-02-13 04:33] LABS: HYPOCHROMASIA 1+; POLYCHROMASIA SLIGHT
[2019-02-13 04:34] LABS: ANISOCYTOSIS 1+; OVALOCYTES 1+; PLATELET CLUMPS PRESENT; PLATELET COMMENT ADEQUATE; POIKILOCYTOSIS 1+; ROULEAUX 2+; STOMATOCYTES SLIGHT; TARGET CELLS SLIGHT; TOXIC GRANULATION 2+
[2019-02-13 04:35] LABS: PLATELET COUNT 309 10^3/uL (150-450)
[2019-02-13] MEDS: MEROPENEM 1 GM in NORMAL SALINE 50 ML IV SCH ×2 (05:22→17:30)
[2019-02-13] MEDS: HEPARIN SOD (PORCINE) 5,000 UNIT/ML 1 ML SYRINGE SUBCUT SCH ×3 (05:23→21:52)
--- NOTE | 2019-02-13 07:33 | RADIOLOGY REPORT (SQ) ---
EXAM DESCRIPTION: XR CHEST 1 VIEW COMPLETED DATE/TME: 02/13/2019 06:00 CLINICAL HISTORY: 28 years Female, RESP FAILURE COMPARISON: One day prior. NUMBER OF VIEWS/TECHNIQUE: 1/AP FINDINGS: Extensive moderate to large opacity-effusion of the left hemithorax. Interval worsening. Moderate central edema. Left thoracic a stimulator device with left nuchal leads.Adequate appearing endotracheal tube. Adequate appearing enteric tube partially obscured. Right jugular central line tip at the right atrium; consider 7 cm retraction.Mildly enlarged cardiac silhouette. No pneumothorax. Stable bony thorax. IMPRESSION: Extensive moderate to large opacity-effusion of the left hemithorax. Interval worsening.
[2019-02-13] MEDS: ACETYLCYSTEINE 20% SOLN 800 MG/4 ML VIAL.NEB NEB SCH ×2 (08:20→19:44)
[2019-02-13] MEDS: LEVALBUTEROL HCL NEB 0.63 MG/3 ML AMPUL NEB PRN ×2 (08:20→19:44)
[2019-02-13 08:54] LABS: INTERNATIONAL RATION (INR) 0.95; PARTIAL THROMBOPLASTIN TIME 21.8 SEC (23.5-35.8); PROTHROMBIN TIME 13.2 SEC (11.4-15.4)
[2019-02-13] MEDS: VANCOMYCIN HCL 1,000 MG in DEXTROSE 5%-WATER 250 ML IV SCH ×2 (10:05→22:12)
[2019-02-13] MEDS: FLUOXETINE HCL 20 MG/5 ML UDCUP NG SCH (10:06)
[2019-02-13] MEDS: FERROUS SULFATE LIQUID 300 MG/5 ML UDC NG SCH ×2 (10:06→17:31)
[2019-02-13] MEDS: ZONISAMIDE 100 MG CAPSULE NG SCH ×2 (10:06→17:31)
[2019-02-13] MEDS: LEVOTHYROXINE SODIUM 0.05 MG TABLET NG SCH (10:07)
[2019-02-13] MEDS: METHYLPREDNISOLONE INJ 40 MG/1 ML SDV IV SCH ×2 (10:07→21:53)
[2019-02-13] MEDS: LORATADINE 10 MG TABLET NG SCH (10:07)
[2019-02-13] MEDS: FUROSEMIDE INJ/PF 20 MG/2 ML SDV IV SCH ×2 (10:07→21:52)
[2019-02-13] MEDS: SENNOSIDES/DOCUSATE 8.6-50 MG 1 EACH TABLET NG SCH (10:08)
--- NOTE | 2019-02-13 13:22 | RADIOLOGY REPORT (SQ) ---
EXAM DESCRIPTION: U/S CHEST COMPLETED DATE/TIME: 02/13/2019 1:03 pm REASON FOR STUDY: left side pleural effusion COMPARISON: None. TECHNIQUE: Sonographic images of the left chest acquired. LIMITATIONS: None. FINDINGS: No pleural fluid identified. IMPRESSION: NO PLEURAL FLUID IDENTIFIED IN THE LEFT CHEST. THEREFORE NO THORACENTESIS PERFORMED. TECHNICAL DOCUMENTATION: JOB ID: [id number] [employer]- All Rights Reserved Reading location - IP/workstation name: [email or web address]
--- NOTE | 2019-02-13 16:02 | PDOC PROGRESS REPORT ---
Subjective Progress Note for:: 02/13/19 Subjective:: 02/10: Assumed care today. Reviewed chart and ICU course. This is a 19-year-old female with a past medical history of developmental delay who was brought in due to fever, cough and shortness of breath. She was noted to be hypoxic ever tachypneic and was intubated upon presentation. She was noted to have a left lower lobe pneumonia with left sided effusion. She was also initially noted to be in septic shock and acute renal failure. No acute event overnight. Off Levophed. She remains intubated and sedated. Currently being on 45% FiO2. 02/11: She remains intubated and sedated. Repeat chest CT showed extensive left lower lobe consolidation with minimal pleural effusion. She remains sedated and intubated. She continues to have yellowish secretions from the ET but less copious compared to yesterday. Will be started on tube feedings today. 02/12: Patient remains intubated and sedated. She is currently on 40% FiO2. Patient will likely be ventilator dependent in the next few days with her extensive left lower lobe consolidation. 02/13: No acute event overnight. Patient remains intubated sedated. She was assessed by radiology for possible thoracentesis and there was no significant pleural fluid on chest ultrasound hence thoracentesis was deferred. Reason For Visit: BILATERAL PNEUMONIA,SEPTIC SHOCK,ACUTE RENAL Physical Exam Vital Signs: Temp Pulse Resp BP Pulse Ox 97.3 F 48 L 3 L 110/65 96 02/13/19 15:00 02/13/19 14:00 02/13/19 14:36 02/13/19 14:36 02/13/19 15:00 Intake & Output 02/12/19 02/13/19 02/14/19 06:59 06:59 06:59 Intake Total 4883 3579 1751 Output Total 6035 2410 1625 Balance 1358 2079 126 Weight 228 lb 9.91 oz 223 lb 15.834 oz General appearance: PRESENT: other - Intubated, sedated Head exam: PRESENT: atraumatic, normocephalic Eye exam: PRESENT: conjunctiva pink, EOMI, PERRLA. ABSENT: scleral icterus Ear exam: PRESENT: normal external ear exam Mouth exam: PRESENT: moist, tongue midline Neck exam: ABSENT: [place] bruit - [id number], JVD, lymphadenopathy, thyromegaly Respiratory exam: PRESENT: decreased breath sounds, rales. ABSENT: rhonchi, wheezes Cardiovascular exam: PRESENT: RRR. ABSENT: diastolic murmur, rubs, systolic murmur Pulses: PRESENT: normal dorsalis pedis pul GI/Abdominal exam: PRESENT: normal bowel sounds, soft. ABSENT: distended, guarding, mass, organolmegaly, rebound, tenderness Rectal exam: PRESENT: deferred Neurological exam: PRESENT: other - Intubated, sedated Results Laboratory Results: 02/13/19 03:36 02/13/19 03:36 02/13/19 02/13/19 02/13/19 03:36 03:36 03:36 WBC 14.6 H RBC 2.52 L Hgb 8.0 L Hct 23.7 L MCV 94 MCH 31.6 MCHC 33.5 RDW 17.6 H Plt Count 309 Seg Neutrophils % Not Reportable Lymphocytes % Not Reportable Monocytes % Not Reportable Eosinophils % Not Reportable Basophils % Not Reportable Absolute Neutrophils Not Reportable Absolute Lymphocytes Not Reportable Absolute Monocytes Not Reportable Absolute Eosinophils Not Reportable Absolute Basophils Not Reportable Carbonic Acid 1.08 HCO3/H2CO3 Ratio 20:1 ABG pH 7.40 ABG pCO2 35.8 ABG pO2 81.0 ABG HCO3 21.6 ABG O2 Saturation 96.0 ABG Base Excess -2.8 FiO2 45% Sodium 142.4 Potassium 4.5 Chloride 113 H Carbon Dioxide 22 Anion Gap 7 BUN 27 H Creatinine 0.74 Est GFR ( Amer) > 60 Est GFR (Non-Af Amer) > 60 Glucose 137 H Calcium 8.5 Magnesium 1.9 02/07/19 23:00 Blood Blood Culture - Final NO GROWTH IN 5 DAYS 02/07/19 22:07 Blood Blood Culture - Final NO GROWTH IN 5 DAYS 02/10/19 20:19 Sputum Gram Stain - Final 02/10/19 20:19 Sputum Sputum Culture - Final C.albicans/C.dubliniensis Normal Diana Absent 02/07/19 02/07/19 23:00 23:00 Troponin I 0.185 NT-Pro-B Natriuret Pep 3020 H Impressions: Chest CT 02/10/19 11:52 IMPRESSION: 1. Extensive consolidation in the left lower lobe consistent with pneumonia. Small left pleural effusion. 2. High position of nasogastric tube. Recommend repositioning. Chest X-Ray 02/13/19 06:00 IMPRESSION: Extensive moderate to large opacity-effusion of the left hemithorax. Interval worsening. Chest Ultrasound 02/13/19 08:31 IMPRESSION: NO PLEURAL FLUID IDENTIFIED IN THE LEFT CHEST. THEREFORE NO THORACENTESIS PERFORMED. Assessment and Plan - Diagnosis (1) Acute respiratory failure with hypoxia Is this a current diagnosis for this admission?: Yes Plan: 02/11: Secondary to left lower lobe pneumonia/consolidation with left-sided pleural effusion. Currently intubated at 45% FiO2. 02/12: Patient remains intubated and sedated. She is currently on 40% FiO2. Patient will likely be ventilator dependent in the next few days with her extensive left lower lobe consolidation. 02/13: Patient remains intubated sedated. She was assessed by radiology for possible thoracentesis and there was no significant pleural fluid on chest ult rasound hence thoracentesis was deferred. (2) Acute renal failure Qualifiers: Acute renal failure type: unspecified Qualified Code(s): N17.9 - Acute kidney failure, unspecified Is this a current diagnosis for this admission?: Yes Plan: Resolved. Likely from a combination of prerenal CAROLINE and septic ATN. (3) Septic shock Is this a current diagnosis for this admission?: Yes Plan: Resolved. Secondary to pneumonia. Off vasopressor. Continue IV antibiotics. (4) Seizure disorder Is this a current diagnosis for this admission?: Yes Plan: Continue Depakote. (5) Pneumonia Is this a current diagnosis for this admission?: Yes Plan: Possibly from community-acquired pneumonia with aspiration component. Currently on azithromycin, vancomycin and meropenem. - Time Time Spent with patient: 25-34 minutes
[2019-02-13] MEDS: AZITHROMYCIN 500 MG in DEXTROSE 5%-WATER 250 ML IV SCH (21:52)
[2019-02-13] MEDS: MONTELUKAST SODIUM 10 MG TABLET NG SCH (21:53)
[2019-02-13 22:59] LABS: VANCOMYCIN,TROUGH 18.7 ug/mL (5.0-20.0)
[2019-02-13] MEDS ORDERED: VANCOMYCIN HCL INJ 500 MG VIAL NG ONE (23:00)
[2019-02-13] MEDS ORDERED: VANCOMYCIN HCL INJ 500 MG VIAL ONE (23:47)
[2019-02-14] MEDS: PROPOFOL 1,000 MG/100 ML INFUS..BTL IV PRN ×9 (00:47→22:30)
[2019-02-14] MEDS: MIDAZOLAM HCL 50 MG/100 ML RTUINJ IV PRN ×8 (02:06→23:32)
[2019-02-14] MEDS: VALPROATE SODIUM IV SCH ×3 (02:07→17:25)
[2019-02-14] MEDS: FENTANYL CITRATE INJ/PF 100 MCG/2 ML AMPUL IV PRN ×3 (02:07→21:11)
[2019-02-14] MEDS: NORMAL SALINE IV SCH ×3 (02:07→17:25)
[2019-02-14 05:08] LABS: ARTERIAL BLOOD BASE EXCESS -3.3 mmol/L; ARTERIAL BLOOD H2CO3 1.04 mmol/L (1.05-1.35); ARTERIAL BLOOD O2 SATURATION 97.4 % (94-98); ARTERIAL BLOOD PCO2 34.5 mmHg (35-45); ARTERIAL BLOOD PO2 96.7 mmHg (80-100); ARTERIAL BLOOD TOTAL CO2 22.1 mmol/L (21-25)
[2019-02-14 05:10] LABS: ARTERIAL BLOOD FIO2 50%
[2019-02-14 05:11] LABS: HEMATOCRIT 23.5 % (36.0-47.0); MEAN CORPUSCULAR HEMOGLOBIN 31.5 pg (27.0-33.4); MEAN CORPUSCULAR HGB CONC 33.3 g/dL (32.0-36.0); MEAN CORPUSCULAR VOLUME 95 fl (80-97); PLATELET COUNT 350 10^3/uL (150-450); RED BLOOD COUNT 2.49 10^6/uL (3.72-5.28); RED CELL DISTRIBUTION WIDTH 17.7 % (11.5-14.0); WHITE BLOOD COUNT 13.5 10^3/uL (4.0-10.5)
[2019-02-14 05:36] LABS: ABSOLUTE LYMPHOCYTES# (MANUAL) 2.7 10^3/uL (0.5-4.7); ABSOLUTE MONOCYTES # (MANUAL) 0.8 10^3/uL (0.1-1.4); ANISOCYTOSIS 1+; BAND NEUTROPHILS % (MANUAL) 17 % (3-5); BASOPHILS % (MANUAL) 0 % (0-2); EOSINOPHILS % (MANUAL) 0 % (0-6); LYMPHOCYTES % (MANUAL) 20 % (13-45); MONOCYTES % (MANUAL) 6 % (3-13); PLATELET COMMENT ADEQUATE; POLYCHROMASIA 1+; SEGMENTED NEUTROPHILS % (MAN) 57 % (42-78); TOTAL CELLS COUNTED 100
[2019-02-14 05:37] LABS: HEMOGLOBIN 7.8 g/dL (12.0-15.5)
[2019-02-14 05:46] LABS: ANION GAP 7 (5-19); BLOOD UREA NITROGEN 27 mg/dL (7-20); CALCIUM 8.7 mg/dL (8.4-10.2); CARBON DIOXIDE 23 mmol/L (22-30); CHLORIDE 113 mmol/L (98-107); GLUCOSE 133 mg/dL (75-110); POTASSIUM 4.8 mmol/L (3.6-5.0); SODIUM 142.7 mmol/L (137-145)
[2019-02-14] MEDS: HEPARIN SOD (PORCINE) 5,000 UNIT/ML 1 ML SYRINGE SUBCUT SCH ×3 (06:16→21:11)
[2019-02-14] MEDS: MEROPENEM 1 GM in NORMAL SALINE 50 ML IV SCH ×2 (06:16→17:25)
[2019-02-14] MEDS: VANCOMYCIN HCL INJ 500 MG VIAL NG SCH ×3 (06:41→17:26)
[2019-02-14] MEDS: NORMAL SALINE 1000 ML 1,000 ML IV PRN ×2 (06:41→16:33)
--- NOTE | 2019-02-14 07:18 | RADIOLOGY REPORT (SQ) ---
EXAM DESCRIPTION: XR ABDOMEN 1 VIEW (KUB) COMPLETED DATE/TME: 02/14/2019 06:00 CLINICAL HISTORY: 28 years Female, abdominal distension COMPARISON: None. NUMBER OF VIEWS/TECHNIQUE: 2 FINDINGS: Intestinal gas pattern is within normal limits. Paucity of bowel gas. Adequate appearing enteric tube. [place]. No suspicious calcification. Grossly intact skeletal structures. IMPRESSION: No acute findings.
--- NOTE | 2019-02-14 07:18 | RADIOLOGY REPORT (SQ) ---
EXAM DESCRIPTION: XR CHEST 1 VIEW COMPLETED DATE/TME: 02/14/2019 06:00 CLINICAL HISTORY: 28 years Female, resp failure COMPARISON: One day prior. NUMBER OF VIEWS/TECHNIQUE: 1/AP FINDINGS: Moderate opacity-effusion of the left lower and mid hemithorax. Small patchy opacity of the right midlung field.Adequate appearing endotracheal tube. Adequate appearing enteric tube partially obscured. Right jugular central line tip at the low-mid right atrium; consider 6 cm retraction. Left thoracic stimulation device with left nuchal leads. Normal cardiac silhouette size. No pneumothorax. Stable bony thorax. IMPRESSION: No significant change.
[2019-02-14] MEDS: ACETYLCYSTEINE 20% SOLN 800 MG/4 ML VIAL.NEB NEB SCH ×2 (08:11→20:21)
[2019-02-14] MEDS: LEVALBUTEROL HCL NEB 0.63 MG/3 ML AMPUL NEB PRN ×2 (08:11→20:21)
[2019-02-14] MEDS: FERROUS SULFATE LIQUID 300 MG/5 ML UDC NG SCH ×2 (10:26→17:25)
[2019-02-14] MEDS: FLUOXETINE HCL 20 MG/5 ML UDCUP NG SCH (10:26)
[2019-02-14] MEDS: LEVOTHYROXINE SODIUM 0.05 MG TABLET NG SCH (10:27)
[2019-02-14] MEDS: FUROSEMIDE INJ/PF 20 MG/2 ML SDV IV SCH ×2 (10:27→21:11)
[2019-02-14] MEDS: LORATADINE 10 MG TABLET NG SCH (10:27)
[2019-02-14] MEDS: ZONISAMIDE 100 MG CAPSULE NG SCH ×2 (10:28→17:26)
[2019-02-14] MEDS: VANCOMYCIN HCL 1,000 MG in DEXTROSE 5%-WATER 250 ML IV SCH ×2 (10:28→21:12)
[2019-02-14] MEDS: METHYLPREDNISOLONE INJ 40 MG/1 ML SDV IV SCH ×2 (10:28→21:11)
--- NOTE | 2019-02-14 11:56 | PDOC PROGRESS REPORT ---
Subjective Progress Note for:: 02/14/19 Subjective:: 02/10: Assumed care today. Reviewed chart and ICU course. This is a 19-year-old female with a past medical history of developmental delay who was brought in due to fever, cough and shortness of breath. She was noted to be hypoxic ever tachypneic and was intubated upon presentation. She was noted to have a left lower lobe pneumonia with left sided effusion. She was also initially noted to be in septic shock and acute renal failure. No acute event overnight. Off Levophed. She remains intubated and sedated. Currently being on 45% FiO2. 02/11: She remains intubated and sedated. Repeat chest CT showed extensive left lower lobe consolidation with minimal pleural effusion. She remains sedated and intubated. She continues to have yellowish secretions from the ET but less copious compared to yesterday. Will be started on tube feedings today. 02/12: Patient remains intubated and sedated. She is currently on 40% FiO2. Patient will likely be ventilator dependent in the next few days with her extensive left lower lobe consolidation. 02/13: Patient remains intubated sedated. She was assessed by radiology for possible thoracentesis and there was no significant pleural fluid on chest ultrasound hence thoracentesis was deferred. 02/14: No acute event overnight. Patient had diarrhea and sedated testing came back positive. She has been started on oral vancomycin. She remains sedated and intubated. Currently at 45% FiO2. Reason For Visit: BILATERAL PNEUMONIA,SEPTIC SHOCK,ACUTE RENAL Physical Exam Vital Signs: Temp Pulse Resp BP Pulse Ox 97.2 F 45 L 16 93/70 L 98 02/14/19 02:00 02/14/19 08:14 02/14/19 08:14 02/14/19 06:36 02/14/19 08:14 Intake & Output 02/13/19 02/14/19 02/15/19 06:59 06:59 06:59 Intake Total 4489 5321 Output Total 2410 4010 Balance 2079 1311 Weight 223 lb 15.834 oz 236 lb 5.369 oz General appearance: PRESENT: other - Intubated, sedated Head exam: PRESENT: atraumatic, normocephalic Eye exam: PRESENT: conjunctiva pink, EOMI, PERRLA. ABSENT: scleral icterus Ear exam: PRESENT: normal external ear exam Mouth exam: PRESENT: moist, tongue midline Neck exam: ABSENT: carotid bruit, JVD, lymphadenopathy, thyromegaly Respiratory exam: PRESENT: rales, rhonchi. ABSENT: wheezes Cardiovascular exam: PRESENT: RRR. ABSENT: diastolic murmur, rubs, systolic murmur Pulses: PRESENT: normal dorsalis pedis pul GI/Abdominal exam: PRESENT: normal bowel sounds, soft. ABSENT: distended, guarding, mass, organolmegaly, rebound, tenderness Rectal exam: PRESENT: deferred Neurological exam: PRESENT: other - Intubated, sedated Results Laboratory Results: 02/14/19 04:46 02/14/19 04:46 02/14/19 02/14/19 02/14/19 04:46 04:46 04:56 WBC 13.5 H RBC 2.49 L Hgb 7.8 L Hct 23.5 L MCV 95 MCH 31.5 MCHC 33.3 RDW 17.7 H Plt Count 350 Seg Neutrophils % Not Reportable Lymphocytes % Not Reportable Monocytes % Not Reportable Eosinophils % Not Reportable Basophils % Not Reportable Absolute Neutrophils Not Reportable Absolute Lymphocytes Not Reportable Absolute Monocytes Not Reportable Absolute Eosinophils Not Reportable Absolute Basophils Not Reportable Carbonic Acid 1.04 L HCO3/H2CO3 Ratio 20:1 ABG pH 7.40 ABG pCO2 34.5 L ABG pO2 96.7 ABG HCO3 21.0 ABG O2 Saturation 97.4 ABG Base Excess -3.3 FiO2 50% Sodium 142.7 Potassium 4.8 Chloride 113 H Carbon Dioxide 23 Anion Gap 7 BUN 27 H Creatinine 0.62 Est GFR ( Amer) > 60 Est GFR (Non-Af Amer) > 60 Glucose 133 H Calcium 8.7 02/07/19 02/07/19 23:00 23:00 Troponin I 0.185 NT-Pro-B Natriuret Pep 3020 H Impressions: Chest CT 02/10/19 11:52 IMPRESSION: 1. Extensive consolidation in the left lower lobe consistent with pneumonia. Small left pleural effusion. 2. High position of nasogastric tube. Recommend repositioning. Chest Ultrasound 02/13/19 08:31 IMPRESSION: NO PLEURAL FLUID IDENTIFIED IN THE LEFT CHEST. THEREFORE NO THORACENTESIS PERFORMED. Chest X-Ray 02/14/19 06:00 IMPRESSION: No significant change. KUB X-Ray 02/14/19 06:00 IMPRESSION: No acute findings. Assessment and Plan - Diagnosis (1) Acute respiratory failure with hypoxia Is this a current diagnosis for this admission?: Yes Plan: 02/11: Secondary to left lower lobe pneumonia/consolidation with left-sided pleural effusion. Currently intubated at 45% FiO2. 02/12: Patient remains intubated and sedated. She is currently on 40% FiO2. Patient will likely be ventilator dependent in the next few days with her extensive left lower lobe consolidation. 02/13: Patient remains intubated sedated. She was assessed by radiology for possible thoracentesis and there was no significant pleural fluid on chest ultrasound hence thoracentesis was deferred. 02/14: Currently on 45% FiO2. (2) Acute renal failure Qualifiers: Acute renal failure type: unspecified Qualified Code(s): N17.9 - Acute kidney failure, unspecified Is this a current diagnosis for this admission?: Yes Plan: Resolved. Likely from a combination of prerenal CAROLINE and septic ATN. (3) Septic shock Is this a current diagnosis for this admission?: Yes Plan: Resolved. Secondary to pneumonia. Off vasopressor. Continue IV antibiotics. (4) Seizure disorder Is this a current diagnosis for this admission?: Yes Plan: Continue Depakote. (5) Pneumonia Is this a current diagnosis for this admission?: Yes Plan: Possibly from community-acquired pneumonia with aspiration component. Currently on azithromycin, vancomycin and meropenem. 02/14: Discontinue azithromycin. Continue vancomycin and meropenem. Repeat sputum culture. Continue Mucomyst. (6) C. difficile diarrhea Is this a current diagnosis for this admission?: Yes Plan: Continue oral vancomycin. Add probiotics. - Time Time Spent with patient: 25-34 minutes
[2019-02-14] MEDS: LACTOBACILLUS ACIDOPHILUS 250 MG TAB PO SCH ×2 (12:27→17:26)
[2019-02-14] MEDS: MONTELUKAST SODIUM 10 MG TABLET NG SCH (21:11)
[2019-02-15] MEDS: PROPOFOL 1,000 MG/100 ML INFUS..BTL IV PRN ×8 (01:14→22:56)
[2019-02-15] MEDS: VANCOMYCIN HCL INJ 500 MG VIAL NG SCH ×5 (01:28→23:51)
[2019-02-15] MEDS: NORMAL SALINE IV SCH ×3 (01:36→17:04)
[2019-02-15] MEDS: VALPROATE SODIUM IV SCH ×3 (01:36→17:04)
[2019-02-15] MEDS: MIDAZOLAM HCL 50 MG/100 ML RTUINJ IV PRN ×6 (02:36→21:29)
[2019-02-15 05:39] LABS: HEMATOCRIT 23.9 % (36.0-47.0); MEAN CORPUSCULAR HEMOGLOBIN 31.4 pg (27.0-33.4); MEAN CORPUSCULAR HGB CONC 33.3 g/dL (32.0-36.0); MEAN CORPUSCULAR VOLUME 94 fl (80-97); PLATELET COUNT 443 10^3/uL (150-450); RED BLOOD COUNT 2.53 10^6/uL (3.72-5.28); RED CELL DISTRIBUTION WIDTH 17.5 % (11.5-14.0); WHITE BLOOD COUNT 13.8 10^3/uL (4.0-10.5)
[2019-02-15 05:40] LABS: ARTERIAL BLOOD BASE EXCESS -2.4 mmol/L; ARTERIAL BLOOD FIO2 40%; ARTERIAL BLOOD H2CO3 0.98 mmol/L (1.05-1.35); ARTERIAL BLOOD HCO3 21.4 mmol/L (20-24); ARTERIAL BLOOD O2 SATURATION 96.6 % (94-98); ARTERIAL BLOOD PCO2 32.5 mmHg (35-45); ARTERIAL BLOOD PH 7.44 (7.35-7.45); ARTERIAL BLOOD PO2 83.2 mmHg (80-100); ARTERIAL BLOOD TOTAL CO2 22.4 mmol/L (21-25)
[2019-02-15] MEDS: FENTANYL CITRATE INJ/PF 100 MCG/2 ML AMPUL IV PRN (05:46)
[2019-02-15] MEDS: HEPARIN SOD (PORCINE) 5,000 UNIT/ML 1 ML SYRINGE SUBCUT SCH ×2 (05:48→17:04)
[2019-02-15] MEDS: MEROPENEM 1 GM in NORMAL SALINE 50 ML IV SCH (05:50)
[2019-02-15 05:56] LABS: ANION GAP 8 (5-19); BLOOD UREA NITROGEN 25 mg/dL (7-20); CALCIUM 8.6 mg/dL (8.4-10.2); CARBON DIOXIDE 21 mmol/L (22-30); CHLORIDE 113 mmol/L (98-107); GLUCOSE 101 mg/dL (75-110); POTASSIUM 4.6 mmol/L (3.6-5.0); SODIUM 141.7 mmol/L (137-145)
--- NOTE | 2019-02-15 07:24 | RADIOLOGY REPORT (SQ) ---
EXAM DESCRIPTION: XR CHEST 1 VIEW COMPLETED DATE/TME: 02/15/2019 06:00 CLINICAL HISTORY: 28 years Female, PNA COMPARISON: 02/08/19 NUMBER OF VIEWS/TECHNIQUE: 1/AP FINDINGS: Moderate opacity-effusion of bilateral lower and left mid hemithorax. Interval worsening. Adequate appearing endotracheal tube. Adequate appearing enteric tube partially obscured. Adequate appearing right jugular central line. Left thoracic stimulator device with left nuchal leads. Normal cardiac silhouette size. No pneumothorax. Stable bony thorax. IMPRESSION: 1. Moderate opacity-effusion of bilateral lower and left mid hemithorax. Interval worsening. 2. Interval intubation.
[2019-02-15] MEDS: LEVOTHYROXINE SODIUM 0.05 MG TABLET NG SCH (08:28)
[2019-02-15] MEDS: ACETYLCYSTEINE 20% SOLN 800 MG/4 ML VIAL.NEB NEB SCH ×2 (08:34→19:55)
[2019-02-15] MEDS: LEVALBUTEROL HCL NEB 0.63 MG/3 ML AMPUL NEB PRN ×2 (08:35→19:55)
[2019-02-15] MEDS: LORATADINE 10 MG TABLET NG SCH (09:24)
[2019-02-15] MEDS: LACTOBACILLUS ACIDOPHILUS 250 MG TAB PO SCH ×2 (09:24→17:03)
[2019-02-15] MEDS: FERROUS SULFATE LIQUID 300 MG/5 ML UDC NG SCH ×2 (09:24→17:03)
[2019-02-15] MEDS: FLUOXETINE HCL 20 MG/5 ML UDCUP NG SCH (09:24)
[2019-02-15] MEDS: METHYLPREDNISOLONE INJ 40 MG/1 ML SDV IV SCH ×2 (09:25→21:28)
[2019-02-15] MEDS: FUROSEMIDE INJ/PF 20 MG/2 ML SDV IV SCH ×2 (09:25→21:28)
[2019-02-15] MEDS: VANCOMYCIN HCL 1,000 MG in DEXTROSE 5%-WATER 250 ML IV SCH ×2 (09:25→21:30)
[2019-02-15] MEDS: ZONISAMIDE 100 MG CAPSULE NG SCH ×2 (09:26→17:03)
--- NOTE | 2019-02-15 11:44 | PDOC PROGRESS REPORT ---
Subjective Progress Note for:: 02/15/19 Subjective:: 02/10: Assumed care today. Reviewed chart and ICU course. This is a 19-year-old female with a past medical history of developmental delay who was brought in due to fever, cough and shortness of breath. She was noted to be hypoxic ever tachypneic and was intubated upon presentation. She was noted to have a left lower lobe pneumonia with left sided effusion. She was also initially noted to be in septic shock and acute renal failure. No acute event overnight. Off Levophed. She remains intubated and sedated. Currently being on 45% FiO2. 02/11: She remains intubated and sedated. Repeat chest CT showed extensive left lower lobe consolidation with minimal pleural effusion. She remains sedated and intubated. She continues to have yellowish secretions from the ET but less copious compared to yesterday. Will be started on tube feedings today. 02/12: Patient remains intubated and sedated. She is currently on 40% FiO2. Patient will likely be ventilator dependent in the next few days with her extensive left lower lobe consolidation. 02/13: Patient remains intubated sedated. She was assessed by radiology for possible thoracentesis and there was no significant pleural fluid on chest ultrasound hence thoracentesis was deferred. 02/14: Patient had diarrhea and sedated testing came back positive. She has been started on oral vancomycin. She remains sedated and intubated. Currently at 45% FiO2. 02/15: No acute event overnight. Currently saturating well at 40% FiO2. She continues to have watery diarrhea from the C. difficile. Weaned down on sedation, she opens her eyes and has regarding but not following commands yet. Reason For Visit: BILATERAL PNEUMONIA,SEPTIC SHOCK,ACUTE RENAL Physical Exam Vital Signs: Temp Pulse Resp BP Pulse Ox 99.1 F 52 L 16 122/80 96 02/15/19 06:00 02/15/19 08:38 02/15/19 08:38 02/15/19 05:36 02/15/19 08:38 Intake & Output 02/14/19 02/15/19 02/16/19 06:59 06:59 06:59 Intake Total 5310 3077 182 Output Total 4016 0965 130 Balance 1361 -878 52 Weight 236 lb 5.369 oz General appearance: PRESENT: other - Intubated, sedated Head exam: PRESENT: atraumatic, normocephalic Eye exam: PRESENT: conjunctiva pink, EOMI, PERRLA. ABSENT: scleral icterus Ear exam: PRESENT: normal external ear exam Neck exam: ABSENT: carotid bruit, JVD, lymphadenopathy, thyromegaly Respiratory exam: PRESENT: decreased breath sounds, rales, rhonchi. ABSENT: wheezes Cardiovascular exam: PRESENT: RRR. ABSENT: diastolic murmur, rubs, systolic murmur Pulses: PRESENT: normal dorsalis pedis pul GI/Abdominal exam: PRESENT: normal bowel sounds, soft. ABSENT: distended, guarding, mass, organolmegaly, rebound, tenderness Rectal exam: PRESENT: deferred - [id number] Neurological exam: PRESENT: other - Intubated, sedated Results Laboratory Results: 02/15/19 05:15 02/15/19 05:15 02/15/19 02/15/19 02/15/19 05:15 05:15 05:15 WBC 13.8 H RBC 2.53 L Hgb 8.0 L Hct 23.9 L MCV 94 MCH 31.4 MCHC 33.3 RDW 17.5 H Plt Count 443 Carbonic Acid 0.98 L HCO3/H2CO3 Ratio 21:1 ABG pH 7.44 ABG pCO2 32.5 L ABG pO2 83.2 ABG HCO3 21.4 ABG O2 Saturation 96.6 ABG Base Excess -2.4 FiO2 40% Sodium 141.7 Potassium 4.6 Chloride 113 H Carbon Dioxide 21 L Anion Gap 8 BUN 25 H Creatinine 0.63 Est GFR ( Amer) > 60 Est GFR (Non-Af Amer) > 60 Glucose 101 Calcium 8.6 02/14/19 09:40 Tracheal Aspirate Gram Stain - Final 02/07/19 02/07/19 23:00 23:00 Troponin I 0.185 NT-Pro-B Natriuret Pep 3020 H Impressions: Chest CT 02/10/19 11:52 IMPRESSION: 1. Extensive consolidation in the left lower lobe consistent with pneumonia. Small left pleural effusion. 2. High position of nasogastric tube. Recommend repositioning. Chest Ultrasound 02/13/19 08:31 IMPRESSION: NO PLEURAL FLUID IDENTIFIED IN THE LEFT CHEST. THEREFORE NO THORACENTESIS PERFORMED. KUB X-Ray 02/14/19 06:00 IMPRESSION: No acute findings. Chest X-Ray 02/15/19 06:00 IMPRESSION: 1. Moderate opacity-effusion of bilateral lower and left mid hemithorax. Interval worsening. 2. Interval intubation. Assessment and Plan - Diagnosis (1) Acute respiratory failure with hypoxia Is this a current diagnosis for this admission?: Yes Plan: 02/11: Secondary to left lower lobe pneumonia/consolidation with left-sided pleural effusion. Currently intubated at 45% FiO2. 02/12: Patient remains intubated and sedated. She is currently on 40% FiO2. Patient will likely be ventilator dependent in the next few days with her extensive left lower lobe consolidation. 02/13: Patient remains intubated sedated. She was assessed by radiology for possible thoracentesis and there was no significant pleural fluid on chest ultrasound hence thoracentesis was deferred. 02/15: Currently on 40% FiO2. Weaned down on sedation, she opens her eyes and has regarding but not following commands yet. (2) Acute renal failure Qualifiers: Acute renal failure type: unspecified Qualified Code(s): N17.9 - Acute kidney failure, unspecified Is this a current diagnosis for this admission?: Yes Plan: Resolved. Likely from a combination of prerenal CAROLINE and septic ATN. (3) Septic shock Is this a current diagnosis for this admission?: Yes Plan: Resolved. Secondary to pneumonia. Off vasopressor. Continue IV antibiotics. (4) Seizure disorder Is this a current diagnosis for this admission?: Yes Plan: Continue Depakote. (5) Pneumonia Is this a current diagnosis for this admission?: Yes Plan: Possibly from community-acquired pneumonia with aspiration component. Currently on azithromycin, vancomycin and meropenem. 02/13: She was assessed by radiology for possible thoracentesis of left aided effusion initially noted on CT and there was no significant pleural fluid on chest ultrasound hence thoracentesis was deferred today. 02/14: Discontinue azithromycin. Continue vancomycin and meropenem. Continue Mucomyst. 02/15: Continue vancomycin and Merrem for now. Repeat sputum culture. (6) C. difficile diarrhea Is this a current diagnosis for this admission?: Yes Plan: Continue oral vancomycin. Added probiotics.
[2019-02-15] MEDS: NORMAL SALINE 1000 ML 1,000 ML IV PRN (13:26)
[2019-02-15] MEDS: MONTELUKAST SODIUM 10 MG TABLET NG SCH (21:27)
[2019-02-16] MEDS: MIDAZOLAM HCL 50 MG/100 ML RTUINJ IV PRN ×3 (00:44→21:28)
[2019-02-16] MEDS: PROPOFOL 1,000 MG/100 ML INFUS..BTL IV PRN ×8 (01:21→23:50)
[2019-02-16] MEDS: NORMAL SALINE IV SCH ×3 (01:21→17:23)
[2019-02-16] MEDS: VALPROATE SODIUM IV SCH ×3 (01:21→17:23)
[2019-02-16 06:09] LABS: ARTERIAL BLOOD BASE EXCESS -1.5 mmol/L; ARTERIAL BLOOD H2CO3 1.01 mmol/L (1.05-1.35); ARTERIAL BLOOD HCO3 22.3 mmol/L (20-24); ARTERIAL BLOOD O2 SATURATION 97.8 % (94-98); ARTERIAL BLOOD PCO2 33.5 mmHg (35-45); ARTERIAL BLOOD PH 7.44 (7.35-7.45); ARTERIAL BLOOD PO2 99.2 mmHg (80-100); ARTERIAL BLOOD TOTAL CO2 23.4 mmol/L (21-25); HEMATOCRIT 23.9 % (36.0-47.0); MEAN CORPUSCULAR HEMOGLOBIN 31.3 pg (27.0-33.4); MEAN CORPUSCULAR HGB CONC 33.2 g/dL (32.0-36.0); MEAN CORPUSCULAR VOLUME 94 fl (80-97); PLATELET COUNT 448 10^3/uL (150-450); RED BLOOD COUNT 2.54 10^6/uL (3.72-5.28); RED CELL DISTRIBUTION WIDTH 17.7 % (11.5-14.0); WHITE BLOOD COUNT 11.7 10^3/uL (4.0-10.5)
[2019-02-16 06:10] LABS: ARTERIAL BLOOD FIO2 35%
[2019-02-16 06:11] LABS: HEMOGLOBIN 7.9 g/dL (12.0-15.5)
[2019-02-16 06:17] LABS: ALANINE AMINOTRANSFERASE 66 U/L (9-52); ALBUMIN 2.6 g/dL (3.5-5.0); ALKALINE PHOSPHATASE 57 U/L (38-126); ANION GAP 8 (5-19); ASPARTATE AMINO TRANSFERASE 44 U/L (14-36); BILIRUBIN,DIRECT 0.4 mg/dL (0.0-0.4); BILIRUBIN,TOTAL 0.5 mg/dL (0.2-1.3); BLOOD UREA NITROGEN 28 mg/dL (7-20); CALCIUM 9.1 mg/dL (8.4-10.2); CARBON DIOXIDE 22 mmol/L (22-30); CHLORIDE 113 mmol/L (98-107); GLUCOSE 109 mg/dL (75-110); POTASSIUM 4.7 mmol/L (3.6-5.0); SODIUM 142.6 mmol/L (137-145); TOTAL PROTEIN 5.2 g/dL (6.3-8.2)
[2019-02-16] MEDS: VANCOMYCIN HCL INJ 500 MG VIAL NG SCH ×4 (07:00→23:51)
[2019-02-16 07:05] LABS: ABSOLUTE LYMPHOCYTES# (MANUAL) 2.1 10^3/uL (0.5-4.7); ABSOLUTE MONOCYTES # (MANUAL) 0.6 10^3/uL (0.1-1.4); BAND NEUTROPHILS % (MANUAL) 7 % (3-5); BASOPHILS % (MANUAL) 0 % (0-2); EOSINOPHILS % (MANUAL) 0 % (0-6); LYMPHOCYTES % (MANUAL) 18 % (13-45); MONOCYTES % (MANUAL) 5 % (3-13); SEGMENTED NEUTROPHILS % (MAN) 64 % (42-78); TOTAL CELLS COUNTED 100
[2019-02-16 07:06] LABS: TOXIC GRANULATION 1+
[2019-02-16 07:08] LABS: ANISOCYTOSIS 2+; HYPOCHROMASIA SLIGHT; PLATELET COMMENT ADEQUATE; POLYCHROMASIA SLIGHT
[2019-02-16 07:10] LABS: METAMYELOCYTES % (MANUAL) 3 % (0); MYELOCYTES % (MANUAL) 3 % (0)
[2019-02-16] MEDS: HEPARIN SOD (PORCINE) 5,000 UNIT/ML 1 ML SYRINGE SUBCUT SCH ×2 (07:11→17:23)
--- NOTE | 2019-02-16 07:17 | RADIOLOGY REPORT (SQ) ---
EXAM DESCRIPTION: XR CHEST 1 VIEW COMPLETED DATE/TME: 02/16/2019 06:00 CLINICAL HISTORY: 28 years Female, PNA COMPARISON: One day prior. NUMBER OF VIEWS/TECHNIQUE: 1/AP FINDINGS: Moderate central edema pattern. Moderate opacity-effusion of the left lower hemithorax.Adequate appearing endotracheal tube. Right jugular central line tip at the mid-lower right atrium; consider 6 cm retraction. Left thoracic electronic device with left nuchal leads.No pneumothorax. Stable bony thorax. IMPRESSION: No significant change.
[2019-02-16] MEDS: ACETYLCYSTEINE 20% SOLN 800 MG/4 ML VIAL.NEB NEB SCH ×2 (08:35→20:43)
[2019-02-16] MEDS: LEVALBUTEROL HCL NEB 0.63 MG/3 ML AMPUL NEB PRN ×2 (08:35→20:43)
[2019-02-16] MEDS ORDERED: FUROSEMIDE INJ/PF 20 MG/2 ML SDV IV ONE (09:15)
[2019-02-16] MEDS: METHYLPREDNISOLONE INJ 40 MG/1 ML SDV IV SCH ×2 (09:30→21:31)
[2019-02-16] MEDS: FLUOXETINE HCL 20 MG/5 ML UDCUP NG SCH (09:30)
[2019-02-16] MEDS: FERROUS SULFATE LIQUID 300 MG/5 ML UDC NG SCH ×2 (09:30→17:24)
[2019-02-16] MEDS: VANCOMYCIN HCL 1,000 MG in DEXTROSE 5%-WATER 250 ML IV SCH (09:31)
[2019-02-16] MEDS: FUROSEMIDE INJ/PF 20 MG/2 ML SDV IV SCH ×2 (09:31→21:31)
[2019-02-16] MEDS: LORATADINE 10 MG TABLET NG SCH (09:32)
[2019-02-16] MEDS: ZONISAMIDE 100 MG CAPSULE NG SCH ×2 (09:32→17:24)
[2019-02-16] MEDS: LEVOTHYROXINE SODIUM 0.05 MG TABLET NG SCH (09:32)
[2019-02-16] MEDS: SENNOSIDES/DOCUSATE 8.6-50 MG 1 EACH TABLET NG SCH (09:32)
[2019-02-16] MEDS: LACTOBACILLUS ACIDOPHILUS 250 MG TAB PO SCH (09:32)
[2019-02-16] MEDS: LACTOBACILLUS ACIDOPHILUS 250 MG TAB NG SCH ×2 (10:17→17:25)
[2019-02-16] MEDS ORDERED: LEVOFLOXACIN 750 MG/D5W RTU 750 MG/150 ML RTUPB IV SCH (11:00)
--- NOTE | 2019-02-16 12:38 | PDOC PROGRESS REPORT ---
Subjective Progress Note for:: 02/16/19 Subjective:: 02/10: Assumed care today. Reviewed chart and ICU course. This is a 19-year-old female with a past medical history of developmental delay who was brought in due to fever, cough and shortness of breath. She was noted to be hypoxic ever tachypneic and was intubated upon presentation. She was noted to have a left lower lobe pneumonia with left sided effusion. She was also initially noted to be in septic shock and acute renal failure. No acute event overnight. Off Levophed. She remains intubated and sedated. Currently being on 45% FiO2. 02/11: She remains intubated and sedated. Repeat chest CT showed extensive left lower lobe consolidation with minimal pleural effusion. She remains sedated and intubated. She continues to have yellowish secretions from the ET but less copious compared to yesterday. Will be started on tube feedings today. 02/12: Patient remains intubated and sedated. She is currently on 40% FiO2. Patient will likely be ventilator dependent in the next few days with her extensive left lower lobe consolidation. 02/13: Patient remains intubated sedated. She was assessed by radiology for possible thoracentesis and there was no significant pleural fluid on chest ultrasound hence thoracentesis was deferred. 02/14: Patient had diarrhea and sedated testing came back positive. She has been started on oral vancomycin. She remains sedated and intubated. Currently at 45% FiO2. 02/15: Currently saturating well at 40% FiO2. She continues to have watery diarrhea from the C. difficile. Weaned down on sedation, she opens her eyes and has regarding but not following commands yet. 02/16: No acute event overnight. Weaning off sedation. She remains intubated. Now down to FiO2 of 35%. Thin white secretions on the ET. She is awake and now inconsistently following commands. We will proceed with SBT/weaning trials today. Reason For Visit: BILATERAL PNEUMONIA,SEPTIC SHOCK,ACUTE RENAL Physical Exam Vital Signs: Temp Pulse Resp BP Pulse Ox 97.7 F 58 L 21 H 131/63 H 91 L 02/16/19 10:00 02/16/19 10:00 02/16/19 10:00 02/16/19 10:02/16/19 10:00 Intake & Output 02/15/19 02/16/1902/17/19 06:59 06:59 06:59 Intake Total 4127 2100 1343 Output Total 7770 8540 1400 Balance 172 -3130 -57 Weight 238 lb 12.17 oz General appearance: PRESENT: other - Intubated, mildly sedated Head exam: PRESENT: atraumatic, normocephalic Eye exam: PRESENT: conjunctiva pink, EOMI, PERRLA. ABSENT: scleral icterus Ear exam: PRESENT: normal external ear exam Mouth exam: PRESENT: moist, tongue midline Neck exam: ABSENT: carotid bruit, JVD, lymphadenopathy, thyromegaly Respiratory exam: PRESENT: decreased breath sounds, rales, rhonchi. ABSENT: w heezes Pulses: PRESENT: normal dorsalis pedis pul GI/Abdominal exam: PRESENT: normal bowel sounds, soft. ABSENT: distended, guarding, mass, organolmegaly, rebound, tenderness Rectal exam: PRESENT: deferred Neurological exam: PRESENT: other - Intubated, mildly sedated Results Laboratory Results: 02/16/19 05:45 02/16/19 05:45 02/16/19 02/16/19 02/16/19 05:45 05:45 05:45 WBC 11.7 H RBC 2.54 L Hgb 7.9 L Hct 23.9 L MCV 94 MCH 31.3 MCHC 33.2 RDW 17.7 H Plt Count 448 Seg Neutrophils % Not Reportable Lymphocytes % Not Reportable Monocytes % Not Reportable Eosinophils % Not Reportable Basophils % Not Reportable Absolute Neutrophils Not Reportable Absolute Lymphocytes Not Reportable Absolute Monocytes Not Reportable Absolute Eosinophils Not Reportable Absolute Basophils Not Reportable Carbonic Acid 1.01 L HCO3/H2CO3 Ratio 22:1 ABG pH 7.44 ABG pCO2 33.5 L ABG pO2 99.2 ABG HCO3 22.3 ABG O2 Saturation 97.8 ABG Base Excess -1.5 FiO2 35% Sodium 142.6 Potassium 4.7 Chloride 113 H Carbon Dioxide 22 Anion Gap 8 BUN 28 H Creatinine 0.65 Est GFR ( Amer) > 60 Est GFR (Non-Af Amer) > 60 Glucose 109 Calcium 9.1 Total Bilirubin 0.5 AST 44 H ALT 66 H Alkaline Phosphatase 57 Total Protein 5.2 L Albumin 2.6 L 02/14/19 09:40 Tracheal Aspirate Gram Stain - Final 02/14/19 09:40 Tracheal Aspirate Sputum Culture - Final C.albicans/C.dubliniensis Normal Diana Absent 02/07/19 02/07/19 23:00 23:00 Troponin I 0.185 NT-Pro-B Natriuret Pep 3020 H Impressions: Chest CT 02/10/19 11:52 IMPRESSION: 1. Extensive consolidation in the left lower lobe consistent with pneumonia. Small left pleural effusion. 2. High position of nasogastric tube. Recommend repositioning. Chest Ultrasound 02/13/19 08:31 IMPRESSION: NO PLEURAL FLUID IDENTIFIED IN THE LEFT CHEST. THEREFORE NO THORACENTESIS PERFORMED. KUB X-Ray 02/14/19 06:00 IMPRESSION: No acute findings. Chest X-Ray 02/16/19 06:00 IMPRESSION: No significant change. Assessment and Plan - Diagnosis (1) Acute respiratory failure with hypoxia Is this a current diagnosis for this admission?: Yes Plan: 02/11: Secondary to left lower lobe pneumonia/consolidation with left-sided pleural effusion. Currently intubated at 45% FiO2. 02/12: Patient remains intubated and sedated. She is currently on 40% FiO2. Patient will likely be ventilator dependent in the next few days with her extensive left lower lobe consolidation. 02/13: Patient remains intubated sedated. She was assessed by radiology for possible thoracentesis and there was no significant pleural fluid on chest ultrasound hence thoracentesis was deferred. 02/15: Currently on 40% FiO2. Weaned down on sedation, she opens her eyes and has regarding but not following commands yet. 02/16: Weaning off sedation. She remains intubated. Now down to FiO2 of 35%. She is awake and now inconsistently following commands. We will proceed with SBT/weaning trials today. (2) Acute renal failure Qualifiers: Acute renal failure type: unspecified Qualified Code(s): N17.9 - Acute kidney failure, unspecified Is this a current diagnosis for this admission?: Yes Plan: Resolved. Likely from a combination of prerenal CAROLINE and septic ATN. (3) Pneumonia Is this a current diagnosis for this admission?: Yes Plan: Possibly from community-acquired pneumonia with aspiration component. Currently on azithromycin, vancomycin and meropenem. 02/13: She was assessed by radiology for possible thoracentesis of left aided effusion initially noted on CT and there was no significant pleural fluid on ch est ultrasound hence thoracentesis was deferred today. 02/14: Discontinue azithromycin. Continue vancomycin and meropenem. Continue Mucomyst. 02/15: Continue vancomycin and Merrem for now. Repeat sputum culture. 02/16: Switch to levofloxacin. Repeat sputum cultures growing Nicole which typically would not require antifungal. CXR show similar infiltrates. Will consult ID for further recommendations. (4) Septic shock Is this a current diagnosis for this admission?: Yes Plan: Resolved. Secondary to pneumonia. Off vasopressor. Continue IV antibiotics. (5) Seizure disorder Is this a current diagnosis for this admission?: Yes Plan: Continue Depakote. (6) C. difficile diarrhea Is this a current diagnosis for this admission?: Yes Plan: Continue oral vancomycin. Added probiotics. - Time Time Spent with patient: 25-34 minutes
[2019-02-16 13:45] LABS: PATH REVIEW PATHOLOGIST REVIEWED
--- NOTE | 2019-02-16 16:26 | Progress Note ---
Provider Note Provider Note: ID Consult Note Asked to review patient's chart. Pt not seen or examined. 28 year old with obesity and developmental delay admitted on 02/08 due to fever, SOB, cough. Due to hypoxic respiratory failure she was intubated. She was found to have an extensive LLL pneumonia. U/S on 02/13 did not find pleural fluid amenable to thoracentesis on the L. Blood cultures are negative. Respiratory culture grew C albicans on 02/10 and 02/14. Was on azithromycin 02/08 to present, meropenem from 02/08- 02/15, vancomycin 02/08-02/16, now Levaquin 02/16 today. Most recent plain films are read as showing pulmonary edema pattern and opacity/effusion in the L hemithorax. No fever. Remains intubated. PS 15/10, 35% FiO2. Small thick white sputum suctioned. Coarse breath sounds. She is on tube feeds. On 02/13 she had a C diff PCR of the stool sent, which was positive. Currently she is getting vancomycin PO per tube. Impression/Recommendations Nicole in respiratory culture - agree, this is most likely a reflection of upper respiratory tract colonization/contamination of the specimen. Isolation of only Nicole reflects pt being on broad spectrum antibiotics when sample was obtained. It is not likely to represent a true pathogen. Outside of specific circumstances (e.g. specific profoundly immunocompromised states with hematological malignancy and hematogenous dissemination of Nicole to the lungs and pulmonary microabscesses) Nicole pneumonia has even been questioned as a true diagnostic entity. Would not add an antifungal. LLL pneumonia - In absence of a focus like a lung abscess (not previously seen on imaging) or empyema (no effusion was seen with prior U/S), the patient ought to be adequately treated at this point, having completed 7 days of azithromycin, meropenem and vancomycin. Based on chart review, pt appears to be improving. Suggest discontinuing Levaquin if no compelling reason to continue otherwise, particularly as she is also being treated for C difficile infection. Would want to minimize any factors contributing to dysbiosis. C difficile colonization or infection - Clinical diagnosis; PCR of stool is highly sensitive, not very specific. Will detect colonization, not just disease. Whether C difficile is likely is a matter of clinical judgement, and judicious selection of patients to test for C difficile infection is recommended. Tube feeds may be contributing to loose stools in this patient, but C difficile infection is certainly possibile with antibiotic exposure. - Given diagnostic uncertainty, it is reasonable to continue treatment for CDI. Would minimize exposure to concurrent antibiotics and continue 125 mg vancomycin q6h per tube (in absence of megacolon, ileus or shock, the 125 mg PO/per tube vancomycin dose should be more than sufficient, surpasses FRANSISCO of the organism many times over). Continue for 10-14 days in total, depending on response. Mike Ro MD [facility] pager [phone]
[2019-02-16] MEDS: AMINO AC/PROTEIN HYDR/WHEY PRO 11 GM/45 ML PKT NG SCH ×2 (17:23→21:32)
[2019-02-16] MEDS: MONTELUKAST SODIUM 10 MG TABLET NG SCH (21:31)
[2019-02-16] MEDS: FENTANYL CITRATE INJ/PF 100 MCG/2 ML AMPUL IV PRN (23:50)
[2019-02-17] MEDS: VALPROATE SODIUM IV SCH ×3 (01:32→18:09)
[2019-02-17] MEDS: NORMAL SALINE IV SCH ×3 (01:32→18:09)
[2019-02-17] MEDS: PROPOFOL 1,000 MG/100 ML INFUS..BTL IV PRN ×3 (02:47→11:03)
[2019-02-17 04:19] LABS: ARTERIAL BLOOD BASE EXCESS -1.7 mmol/L; ARTERIAL BLOOD H2CO3 0.99 mmol/L (1.05-1.35); ARTERIAL BLOOD O2 SATURATION 98.1 % (94-98); ARTERIAL BLOOD PCO2 32.8 mmHg (35-45); ARTERIAL BLOOD PH 7.45 (7.35-7.45); ARTERIAL BLOOD PO2 107.3 mmHg (80-100)
[2019-02-17 04:20] LABS: ARTERIAL BLOOD FIO2 35%
[2019-02-17] MEDS: MIDAZOLAM HCL 50 MG/100 ML RTUINJ IV PRN (05:37)
[2019-02-17] MEDS: HEPARIN SOD (PORCINE) 5,000 UNIT/ML 1 ML SYRINGE SUBCUT SCH ×2 (05:37→18:12)
[2019-02-17] MEDS: VANCOMYCIN HCL INJ 500 MG VIAL NG SCH ×4 (05:38→23:11)
[2019-02-17] MEDS: LEVALBUTEROL HCL NEB 0.63 MG/3 ML AMPUL NEB PRN ×2 (07:30→19:54)
[2019-02-17] MEDS: ACETYLCYSTEINE 20% SOLN 800 MG/4 ML VIAL.NEB NEB SCH ×2 (07:30→19:54)
--- NOTE | 2019-02-17 08:19 | RADIOLOGY REPORT (SQ) ---
EXAM DESCRIPTION: KUB/ABDOMEN (SINGLE VIEW) COMPLETED DATE/TIME: 02/17/2019 6:40 am REASON FOR STUDY: slight distention COMPARISON: CT ABDOMEN PELVIS 01/06/2015 KUB 02/14/2019 NUMBER OF VIEWS: One view. TECHNIQUE: Supine radiographic image of the abdomen acquired. LIMITATIONS: None. FINDINGS: BOWEL GAS PATTERN: Stomach is decompressed by a nasogastric tube, with the tip and side-po rt in the body of the stomach. No dilated small bowel loops. Few air bubbles in nondistended colon. Grossly nonobstructive bowel gas pattern. CALCIFICATIONS: No suspicious calcifications. SOFT TISSUES: No gross mass or suggestion of organomegaly. HARDWARE: Nasogastric tube tip and side port in the stomach BONES: No acute fracture. No worrisome bone lesions. IMPRESSION: Nasogastric tube tip and side port in the stomach. Nonobstructive bowel gas pattern TECHNICAL DOCUMENTATION: JOB ID: [id number] [employer]- All Rights Reserved Reading location - IP/workstation name: [email or web address]
[2019-02-17] MEDS ORDERED: VANCOMYCIN HCL 1,000 MG in DEXTROSE 5%-WATER 250 ML IV SCH (10:00)
[2019-02-17] MEDS: METHYLPREDNISOLONE INJ 40 MG/1 ML SDV IV SCH (10:38)
[2019-02-17] MEDS: AMINO AC/PROTEIN HYDR/WHEY PRO 11 GM/45 ML PKT NG SCH ×4 (10:39→21:39)
[2019-02-17] MEDS: FUROSEMIDE INJ/PF 20 MG/2 ML SDV IV SCH ×2 (10:39→21:39)
[2019-02-17] MEDS: FLUOXETINE HCL 20 MG/5 ML UDCUP NG SCH (10:39)
[2019-02-17] MEDS: FERROUS SULFATE LIQUID 300 MG/5 ML UDC NG SCH ×2 (10:39→18:12)
[2019-02-17] MEDS: LEVOTHYROXINE SODIUM 0.05 MG TABLET NG SCH (10:40)
[2019-02-17] MEDS: LORATADINE 10 MG TABLET NG SCH (10:40)
[2019-02-17] MEDS: ZONISAMIDE 100 MG CAPSULE NG SCH ×2 (10:40→18:11)
[2019-02-17] MEDS: LACTOBACILLUS ACIDOPHILUS 250 MG TAB NG SCH ×2 (10:40→18:12)
--- NOTE | 2019-02-17 12:55 | PDOC PROGRESS REPORT ---
Subjective Progress Note for:: 02/17/19 Subjective:: 28 year old female who presents the emergency room with fever. Patient has developmental delays and is currently very ill (toxic) and hypoxic and unable to contribute to her medical care due to delirium. Mother relates that for 1 week she has been having a cough that has been mostly nonproductive and an intermittent fever with numerous episodes of seizures (history of seizure disorder often worsened by fever). She was seen, a few days ago, at an urgent care center and treated for an ear infection with oral Ceftin. On the evening prior to their emergency room visit the patient's fever went up to 104 but came down fairly quickly with ibuprofen and Tylenol. In the morning her mother found that she continued to have a cough and fever but later in the evening she realized that her daughter was severely ill when she found her fever had returned to 104.4 F and she was having trouble with her breathing. She subsequently called EMS. Upon their arrival, EMS found the patient with severe dyspnea, hypoxia and fever. Upon her arrival at the emergency room the patient was severely hypoxic and subsequently required intubation and mechanical ventilation. She was also noted to be febrile, severely tachycardic with severe acute renal failure and hypotension requiring pressor support with Levophed. Patient was subsequently admitted to the intensive care unit after stabilization in the emergency room. 02/10: Assumed care today. Reviewed chart and ICU course. This is a 19-year-old female with a past medical history of developmental delay who was brought in due to fever, cough and shortness of breath. She was noted to be hypoxic ever tachypneic and was intubated upon presentation. She was noted to have a left lower lobe pneumonia with left sided effusion. She was also initially noted to be in septic shock and acute renal failure. No acute event overnight. Off Levophed. She remains intubated and sedated. Currently being on 45% FiO2. 02/11: She remains intubated and sedated. Repeat chest CT showed extensive left lower lobe consolidation with minimal pleural effusion. She remains sedated and intubated. She continues to have yellowish secretions from the ET but less copious compared to yesterday. Will be started on tube feedings today. 02/12: Patient remains intubated and sedated. She is currently on 40% FiO2. Patient will likely be ventilator dependent in the next few days with her extensive left lower lobe consolidation. 02/13: Patient remains intubated sedated. She was assessed by radiology for possible thoracentesis and there was no significant pleural fluid on chest ultrasound hence thoracentesis was deferred. 02/14: Patient had diarrhea and sedated testing came back positive. She has been started on oral vancomycin. She remains sedated and intubated. Currently at 45% FiO2. 02/15: Currently saturating well at 40% FiO2. She continues to have watery diarrhea from the C. difficile. Weaned down on sedation, she opens her eyes and has regarding but not following commands yet. 02/16: No acute event overnight. Weaning off sedation. She remains intubated. Now down to FiO2 of 35%. Thin white secretions on the ET. She is awake and now inconsistently following commands. We will proceed with SBT/weaning trials today. 02/17/[id number]-eahc-old female with history of developmental delays admitted for respiratory symptoms like cough nonproductive, intermittent fevers and numerous episodes of seizures found to have a fever of 104 brought to the emergency room in the emergency room patient was severely hypoxic requiring intubation on mechanical ventilation. Found to have left lower lobe pneumonia treated with multiple antibiotics presently on IV levo floxacillin as per ID recommendations plan is to discontinue levo floxacillin from today. Patient is presently off the sedation and plan to extubate her either today or tomorrow and weaning trial was initiated. The ABG was done this morning and 35% oxygen pH is 7.45/PCO2 32.8/PO2 107 bicarb is 22. KUB was done this morning no acute pathology plan is to restart the tube feeds. Reason For Visit: BILATERAL PNEUMONIA,SEPTIC SHOCK,ACUTE RENAL Physical Exam Vital Signs: Temp Pulse Resp BP Pulse Ox 98.4 F 53 L 16 119/71 97 02/17/19 08:00 02/17/19 10:00 02/17/19 10:00 02/17/19 10:00 02/17/19 11:17 Intake & Output 02/16/19 02/17/19 02/18/19 06:59 06:59 06:59 Intake Total 2100 5485 102 Output Total 0247 0376 310 Balance -3130 -4655 -208 Weight 108.3 kg 99.3 kg General appearance: PRESENT: no acute distress, obese, other - Still intubated but not on sedation. Head exam: PRESENT: atraumatic Eye exam: PRESENT: PERRLA Mouth exam: PRESENT: moist, tongue midline Neck exam: ABSENT: carotid bruit, JVD, lymphadenopathy, thyromegaly Respiratory exam: PRESENT: clear to auscultation ethan. ABSENT: rales, rhonchi, wheezes Cardiovascular exam: PRESENT: RRR. ABSENT: diastolic murmur, rubs, systolic murmur GI/Abdominal exam: PRESENT: other - And has a feeding tube. Rectal exam: PRESENT: deferred Gentrourinary exam: PRESENT: indwelling catheter Neurological exam: PRESENT: alert, awake, oriented to person, oriented to place, oriented to time, oriented to situation, CN II-XII grossly intact. ABSENT: motor sensory deficit Psychiatric exam: PRESENT: appropriate affect, normal mood. ABSENT: homicidal ideation, suicidal ideation Results Laboratory Results: 02/16/19 05:45 02/16/19 05:45 02/17/19 04:06 Carbonic Acid 0.99 L HCO3/H2CO3 Ratio 22:1 ABG pH 7.45 ABG pCO2 32.8 L ABG pO2 107.3 H ABG HCO3 22.0 ABG O2 Saturation 98.1 H ABG Base Excess -1.7 FiO2 35% 02/07/19 02/07/19 23:00 23:00 Troponin I 0.185 NT-Pro-B Natriuret Pep 3020 H Impressions: Chest CT 02/10/19 11:52 IMPRESSION: 1. Extensive consolidation in the left lower lobe consistent with pneumonia. Small left pleural effusion. 2. High position of nasogastric tube. Recommend repositioning. Chest Ultrasound 02/13/19 08:31 IMPRESSION: NO PLEURAL FLUID IDENTIFIED IN THE LEFT CHEST. THEREFORE NO THORACENTESIS PERFORMED. Chest X-Ray 02/16/19 06:00 IMPRESSION: No significant change. KUB X-Ray 02/17/19 07:00 IMPRESSION: Nasogastric tube tip and side port in the stomach. Nonobstructive bowel gas pattern Assessment and Plan - Diagnosis (1) Acute respiratory failure with hypoxia Is this a current diagnosis for this admission?: Yes Plan: 02/11: Secondary to left lower lobe pneumonia/consolidation with left-sided pleural effusion. Currently intubated at 45% FiO2. 02/12: Patient remains intubated and sedated. She is currently on 40% FiO2. Patient will likely be ventilator dependent in the next few days with her extensive left lower lobe consolidation. 02/13: Patient remains intubated sedated. She was assessed by radiology for possible thoracentesis and there was no significant pleural fluid on chest ultrasound hence thoracentesis was deferred. 02/15: Currently on 40% FiO2. Weaned down on sedation, she opens her eyes and has regarding but not following commands yet. 02/16: Weaning off sedation. She remains intubated. Now down to FiO2 of 35%. She is awake and now inconsistently following commands. We will proceed with SBT/weaning trials today. 02/17/2019-patient admitted with acute respiratory failure with hypoxia. Presently on 35% FiO2. Off the sedation. Alert and awake. Not in distress. ABG on 35% this morning pH is 7.45/PCO2 32.8/PO2 107 bicarb is 22. Weaning trial was initiated today probably extubate her either today or tomorrow. (2) C. difficile diarrhea Is this a current diagnosis for this admission?: Yes Plan: Continue oral vancomycin. Added probiotics. 02/17/2019-patient was diagnosed with C. difficile diarrhea and then p.o. vancomycin plan is to continue the treatment for at least 10 to 14 days. (3) Community acquired pneumonia of left lower lobe of lung Is this a current diagnosis for this admission?: Yes Plan: Patient's pneumonia will be treated aggressively for a community-acquired pneumonia with azithromycin 500 mg IV every 24 hours, meropenem 1 g IV every 6 hours and vancomycin to be dosed by pharmacy. Patient will also receive a pulmonary toilet utilizing Xopenex nebulizers every 2 hours as needed and Mucomyst nebulizer twice daily. Her secondary symptoms of fever will be treated with Tylenol suppositories while she is on the ventilator. Dr. Rossi will be consulted for pulmonology input. February 08, 2019-discussion with the patient's father reveals that she had been feeling poorly over multiple days. She did present to her physician. Antibiotics were started. With no noticeable progress and in fact worsening of her condition, EMS was called. He reports no history of emesis. Most affected is the left lower lobe. We will continue the vancomycin, meropenem and azithromycin for the broadest coverage possible. 02/17/2019-patient is admitted with community-acquired pneumonia most likely gram-positive organisms. At the time of admission patient was in acute respiratory failure status post intubation. Acute respiratory failure may be most likely secondary to underlying pneumonia. Time culture is positive for Nicole and blood cultures are negative for bacteria. Plan is to discontinue IV levo floxacillin from today. (4) Acute renal failure Qualifiers: Acute renal failure type: unspecified Qualified Code(s): N17.9 - Acute kidney failure, unspecified Is this a current diagnosis for this admission?: Yes Plan: Resolved. Likely from a combination of prerenal CAROLINE and septic ATN. 02/17/2019-patient's admission creatinine is 3.45 and the latest creatinine is 0 .65 acute renal failure resolved. Patient's baseline creatinine in May be around 0.6 to o.7. (5) Septic shock Is this a current diagnosis for this admission?: Yes Plan: Resolved. Secondary to pneumonia. Off vasopressor. Continue IV antibiotics. 02/17/2019-patient is admitted with septic shock most likely secondary to pneumonia. Off the pressors. Plan is to discontinue levo floxacillin from today as per ID recommendations. - Time Time Spent with patient: 35 or more minutes Medications reviewed and adjusted accordingly: Yes Anticipated discharge: Home
[2019-02-17 15:27] LABS: ARTERIAL BLOOD BASE EXCESS 1.3 mmol/L; ARTERIAL BLOOD H2CO3 1.05 mmol/L (1.05-1.35); ARTERIAL BLOOD HCO3 24.8 mmol/L (20-24); ARTERIAL BLOOD O2 SATURATION 93.1 % (94-98); ARTERIAL BLOOD PH 7.47 (7.35-7.45); ARTERIAL BLOOD PO2 61.3 mmHg (80-100); ARTERIAL BLOOD TOTAL CO2 25.9 mmol/L (21-25)
[2019-02-17 15:28] LABS: ARTERIAL BLOOD FIO2 40%
[2019-02-17 20:25] LABS: ABSOLUTE BASOPHILS # (AUTO) 0.1 10^3/uL (0.0-0.2); ABSOLUTE LYMPHOCYTES (AUTO) 3.7 10^3/uL (0.5-4.7); ABSOLUTE MONOCYTES (AUTO) 0.7 10^3/uL (0.1-1.4); BASOPHILS % (AUTO) 0.7 % (0-2); EOSINOPHILS % (AUTO) 0.2 % (0-6); HEMATOCRIT 24.5 % (36.0-47.0); HEMOGLOBIN 8.1 g/dL (12.0-15.5); LYMPHOCYTES % (AUTO) 35.4 % (13-45); MEAN CORPUSCULAR HEMOGLOBIN 31.2 pg (27.0-33.4); MEAN CORPUSCULAR HGB CONC 33.2 g/dL (32.0-36.0); MEAN CORPUSCULAR VOLUME 94 fl (80-97); MONOCYTES % (AUTO) 7.1 % (3-13); PLATELET COUNT 319 10^3/uL (150-450); RED CELL DISTRIBUTION WIDTH 17.4 % (11.5-14.0); SEGMENTED NEUTROPHILS % (AUTO) 56.6 % (42-78); TOTAL CELLS COUNTED % (AUTO) 100 %; WHITE BLOOD COUNT 10.5 10^3/uL (4.0-10.5)
[2019-02-17 20:45] LABS: ALANINE AMINOTRANSFERASE 82 U/L (9-52); ALBUMIN 3.2 g/dL (3.5-5.0); ALKALINE PHOSPHATASE 58 U/L (38-126); ANION GAP 8 (5-19); ASPARTATE AMINO TRANSFERASE 44 U/L (14-36); BILIRUBIN,DIRECT 0.5 mg/dL (0.0-0.4); BILIRUBIN,TOTAL 0.6 mg/dL (0.2-1.3); BLOOD UREA NITROGEN 35 mg/dL (7-20); CALCIUM 9.8 mg/dL (8.4-10.2); CARBON DIOXIDE 26 mmol/L (22-30); CHLORIDE 111 mmol/L (98-107); GLUCOSE 81 mg/dL (75-110); POTASSIUM 3.8 mmol/L (3.6-5.0); SODIUM 145.4 mmol/L (137-145); TOTAL PROTEIN 5.9 g/dL (6.3-8.2)
[2019-02-17] MEDS: MONTELUKAST SODIUM 10 MG TABLET NG SCH (21:39)
[2019-02-18] MEDS: NORMAL SALINE IV SCH ×3 (01:05→19:30)
[2019-02-18] MEDS: VALPROATE SODIUM IV SCH ×3 (01:05→19:30)
[2019-02-18] MEDS: VANCOMYCIN HCL INJ 500 MG VIAL NG SCH ×4 (05:33→23:34)
[2019-02-18] MEDS: HEPARIN SOD (PORCINE) 5,000 UNIT/ML 1 ML SYRINGE SUBCUT SCH ×2 (05:34→19:29)
[2019-02-18] MEDS ORDERED: DIAZEPAM INJ 10 MG/2 ML DISP.SYRIN IV ONE (06:30)
[2019-02-18] MEDS: LEVALBUTEROL HCL NEB 0.63 MG/3 ML AMPUL NEB PRN (07:39)
[2019-02-18] MEDS: ACETYLCYSTEINE 20% SOLN 800 MG/4 ML VIAL.NEB NEB SCH ×2 (07:39→21:52)
[2019-02-18] MEDS ORDERED: DIAZEPAM INJ 10 MG/2 ML DISP.SYRIN IV PRN (09:00)
[2019-02-18] MEDS: LEVOTHYROXINE SODIUM 0.05 MG TABLET NG SCH (09:01)
[2019-02-18] MEDS: FERROUS SULFATE LIQUID 300 MG/5 ML UDC NG SCH ×2 (09:32→19:29)
[2019-02-18] MEDS: FLUTICASONE NASAL SPRAY 50 MCG/SPRY 120 SPRAY/16 GM NASL SCH (09:32)
[2019-02-18] MEDS: AMINO AC/PROTEIN HYDR/WHEY PRO 11 GM/45 ML PKT NG SCH ×4 (09:32→22:07)
[2019-02-18] MEDS: FLUOXETINE HCL 20 MG/5 ML UDCUP NG SCH (09:32)
[2019-02-18] MEDS: SENNOSIDES/DOCUSATE 8.6-50 MG 1 EACH TABLET NG SCH (09:33)
[2019-02-18] MEDS: ZONISAMIDE 100 MG CAPSULE NG SCH ×2 (09:33→19:30)
[2019-02-18] MEDS: LORATADINE 10 MG TABLET NG SCH (09:33)
[2019-02-18] MEDS: LACTOBACILLUS ACIDOPHILUS 250 MG TAB NG SCH ×2 (09:33→19:29)
--- NOTE | 2019-02-18 09:33 | PDOC PROGRESS REPORT ---
Subjective Progress Note for:: 02/18/19 Subjective:: 28 year old female who presents the emergency room with fever. Patient has developmental delays and is currently very ill (toxic) and hypoxic and unable to contribute to her medical care due to delirium. Mother relates that for 1 week she has been having a cough that has been mostly nonproductive and an intermittent fever with numerous episodes of seizures (history of seizure disorder often worsened by fever). She was seen, a few days ago, at an urgent care center and treated for an ear infection with oral Ceftin. On the evening prior to their emergency room visit the patient's fever went up to 104 but came down fairly quickly with ibuprofen and Tylenol. In the morning her mother found that she continued to have a cough and fever but later in the evening she realized that her daughter was severely ill when she found her fever had returned to 104.4 F and she was having trouble with her breathing. She subsequently called EMS. Upon their arrival, EMS found the patient with severe dyspnea, hypoxia and fever. Upon her arrival at the emergency room the patient was severely hypoxic and subsequently required intubation and mechanical ventilation. She was also noted to be febrile, severely tachycardic with severe acute renal failure and hypotension requiring pressor support with Levophed. Patient was subsequently admitted to the intensive care unit after stabilization in the emergency room. 02/10: Assumed care today. Reviewed chart and ICU course. This is a 19-year-old female with a past medical history of developmental delay who was brought in due to fever, cough and shortness of breath. She was noted to be hypoxic ever tachypneic and was intubated upon presentation. She was noted to have a left lower lobe pneumonia with left sided effusion. She was also initially noted to be in septic shock and acute renal failure. No acute event overnight. Off Levophed. She remains intubated and sedated. Currently being on 45% FiO2. 02/11: She remains intubated and sedated. Repeat chest CT showed extensive left lower lobe consolidation with minimal pleural effusion. She remains sedated and intubated. She continues to have yellowish secretions from the ET but less copious compared to yesterday. Will be started on tube feedings today. 02/12: Patient remains intubated and sedated. She is currently on 40% FiO2. Patient will likely be ventilator dependent in the next few days with her extensive left lower lobe consolidation. 02/13: Patient remains intubated sedated. She was assessed by radiology for possible thoracentesis and there was no significant pleural fluid on chest ultrasound hence thoracentesis was deferred. 02/14: Patient had diarrhea and sedated testing came back positive. She has been started on oral vancomycin. She remains sedated and intubated. Currently at 45% FiO2. 02/15: Currently saturating well at 40% FiO2. She continues to have watery diarrhea from the C. difficile. Weaned down on sedation, she opens her eyes and has regarding but not following commands yet. 02/16: No acute event overnight. Weaning off sedation. She remains intubated. Now down to FiO2 of 35%. Thin white secretions on the ET. She is awake and now inconsistently following commands. We will proceed with SBT/weaning trials today. 02/[id number]-fkte-old female with history of developmental delays admitted for respiratory symptoms like cough nonproductive, intermittent fevers and numerous episodes of seizures found to have a fever of 104 brought to the emergency room in the emergency room patient was severely hypoxic requiring intubation on mechanical ventilation. Found to have left lower lobe pneumonia treated with multiple antibiotics presently on IV levo floxacillin as per ID recommendations plan is to discontinue levo floxacillin from today. Patient is presently off the sedation and plan to extubate her either today or tomorrow and weaning trial was initiated. The ABG was done this morning and 35% oxygen pH is 7.45/PCO2 32.8/PO2 107 bicarb is 22. KUB was done this morning no acute pathology plan is to restart the tube feeds. 02/[id number]-pvyy-old female with history of developmental delays admitted for acute respiratory failure with hypoxia most likely secondary to underlying pneumonia. Antibiotics are discontinued. Waiting for the swallowing evaluation before removing the NG tube. Going for the CT chest for further evaluation of the pneumonia. Alert and awake not in distress. Presently on 30% oxygen. My opinion patient is stable enough to go to IMCU. Reason For Visit: BILATERAL PNEUMONIA,SEPTIC SHOCK,ACUTE RENAL Physical Exam Vital Signs: Temp Pulse Resp BP Pulse Ox 99.1 F 73 23 H 125/87 H 99 02/18/19 08:00 02/18/19 08:00 02/18/19 08:00 02/18/19 08:00 02/18/19 08:00 Intake & Output 02/17/19 02/18/19 02/19/19 06:59 06:59 06:59 Intake Total 2395 114 Output Total 7050 4360 125 Balance -4655 -4246 -125 Weight 99.3 kg 95.1 kg General appearance: PRESENT: no acute distress, obese Head exam: PRESENT: atraumatic Eye exam: PRESENT: PERRLA Mouth exam: PRESENT: moist, tongue midline Neck exam: ABSENT: carotid bruit, JVD, lymphadenopathy, thyromegaly Respiratory exam: PRESENT: decreased breath sounds Cardiovascular exam: PRESENT: tachycardia GI/Abdominal exam: PRESENT: normal bowel sounds, soft, other - NG tube in place.. ABSENT: distended, guarding, mass, organolmegaly, rebound, tenderness Rectal exam: PRESENT: deferred Extremities exam: PRESENT: full ROM. ABSENT: calf tenderness, clubbing, pedal edema Neurological exam: PRESENT: alert, awake, CN II-XII grossly intact. ABSENT: motor sensory deficit Psychiatric exam: PRESENT: appropriate affect, normal mood. ABSENT: homicidal ideation, suicidal ideation Results Laboratory Results: 02/17/19 20:15 02/17/19 20:15 02/17/19 02/17/19 02/17/19 15:15 20:15 20:15 WBC 10.5 RBC 2.60 L Hgb 8.1 L Hct 24.5 L MCV 94 MCH 31.2 MCHC 33.2 RDW 17.4 H Plt Count 319 Seg Neutrophils % 56.6 Lymphocytes % 35.4 Monocytes % 7.1 Eosinophils % 0.2 Basophils % 0.7 Absolute Neutrophils 6.0 Absolute Lymphocytes 3.7 Absolute Monocytes 0.7 Absolute Eosinophils 0.0 Absolute Basophils 0.1 Carbonic Acid 1.05 HCO3/H2CO3 Ratio 23:1 ABG pH 7.47 H ABG pCO2 35.0 ABG pO2 61.3 L ABG HCO3 24.8 H ABG O2 Saturation 93.1 L ABG Base Excess 1.3 FiO2 40% Sodium 145.4 H Potassium 3.8 Chloride 111 H Carbon Dioxide 26 Anion Gap 8 BUN 35 H Creatinine 0.72 Est GFR ( Amer) > 60 Est GFR (Non-Af Amer) > 60 Glucose 81 Calcium 9.8 Magnesium 2.0 Total Bilirubin 0.6 AST 44 H ALT 82 H Alkaline Phosphatase 58 Total Protein 5.9 L Albumin 3.2 L 02/07/19 02/07/19 23:00 23:00 Troponin I 0.185 NT-Pro-B Natriuret Pep 3020 H Impressions: Chest CT 02/10/19 11:52 IMPRESSION: 1. Extensive consolidation in the left lower lobe consistent with pneumonia. Small left pleural effusion. 2. High position of nasogastric tube. Recommend repositioning. Chest Ultrasound 02/13/19 08:31 IMPRESSION: NO PLEURAL FLUID IDENTIFIED IN THE LEFT CHEST. THEREFORE NO TH ORACENTESIS PERFORMED. Chest X-Ray 02/16/19 06:00 IMPRESSION: No significant change. KUB X-Ray 02/17/19 07:00 IMPRESSION: Nasogastric tube tip and side port in the stomach. Nonobstructive bowel gas pattern Assessment and Plan - Diagnosis (1) Acute respiratory failure with hypoxia Is this a current diagnosis for this admission?: Yes Plan: 02/11: Secondary to left lower lobe pneumonia/consolidation with left-sided pleural effusion. Currently intubated at 45% FiO2. 02/12: Patient remains intubated and sedated. She is currently on 40% FiO2. Patient will likely be ventilator dependent in the next few days with her extens ely left lower lobe consolidation. 02/13: Patient remains intubated sedated. She was assessed by radiology for possible thoracentesis and there was no significant pleural fluid on chest ultrasound hence thoracentesis was deferred. 02/15: Currently on 40% FiO2. Weaned down on sedation, she opens her eyes and has regarding but not following commands yet. 02/16: Weaning off sedation. She remains intubated. Now down to FiO2 of 35%. She is awake and now inconsistently following commands. We will proceed with SBT/weaning trials today. 02/17/2019-patient admitted with acute respiratory failure with hypoxia. Presently on 35% FiO2. Off the sedation. Alert and awake. Not in distress. ABG on 35% this morning pH is 7.45/PCO2 32.8/PO2 107 bicarb is 22. Weaning trial was initiated today probably extubate her either today or tomorrow. 02/18/[id number]-bazn-old female admitted with acute respiratory failure with hypoxia. Presently on 30% oxygen. Plan to repeat the ABG today and all labs today. CT chest without contrast was requested today to evaluate the bilateral pneumonia that was noticed in the previous investigations. It is presently not on antibiotics and the sputum culture shows Nicole and that she is not on antifungal either at this point. (2) C. difficile diarrhea Is this a current diagnosis for this admission?: Yes Plan: Continue oral vancomycin. Added probiotics. 02/17/2019-patient was diagnosed with C. difficile diarrhea and then p.o. vancomycin plan is to continue the treatment for at least 10 to 14 days. 02/18/2019-patient is presently on p.o. vancomycin 125 mg every 6 hours for C. difficile diarrhea. Patient is also on probiotics. No diarrhea was reported in the last 24 hours. Plan is to continue the treatment for 10 to 14 days. (3) Community acquired pneumonia of left lower lobe of lung Is this a current diagnosis for this admission?: Yes Plan: Patient's pneumonia will be treated aggressively for a community-acquired pneumonia with azithromycin 500 mg IV every 24 hours, meropenem 1 g IV every 6 hours and vancomycin to be dosed by pharmacy. Patient will also receive a pulmonary toilet utilizing Xopenex nebulizers every 2 hours as needed and Mucomyst nebulizer twice daily. Her secondary symptoms of fever will be treated with Tylenol suppositories while she is on the ventilator. Dr. Rossi will be consulted for pulmonology input. February 08, 2019-discussion with the patient's father reveals that she had been feeling poorly over multiple days. She did present to her physician. Antibiotics were started. With no noticeable progress and in fact worsening of her condition, EMS was called. He reports no history of emesis. Most affected is the left lower lobe. We will continue the vancomycin, meropenem and azithromycin for the broadest coverage possible. 02/17/2019-patient is admitted with community-acquired pneumonia most likely gram-positive organisms. At the time of admission patient was in acute respiratory failure status post intubation. Acute respiratory failure may be most likely secondary to underlying pneumonia. Time culture is positive for Nicole and blood cultures are negative for bacteria. Plan is to discontinue IV levo floxacillin from today. 02/18/2019-patient is admitted with community-acquired pneumonia most likely gram-positive organisms. It may be contributing factor for acute respiratory failure with hypoxia leading to intubation. Sputum cultures are negative except for a Nicole patient is presently off the antibiotics plan is to repeat the CT chest today. (4) Acute renal failure Qualifiers: Acute renal failure type: unspecified Qualified Code(s): N17.9 - Acute kidney failure, unspecified Is this a current diagnosis for this admission?: Yes Plan: Resolved. Likely from a combination of prerenal CAROLINE and septic ATN. 02/17/2019-patient's admission creatinine is 3.45 and the latest creatinine is 0.65 acute renal failure resolved. Patient's baseline creatinine in May be around 0.6 to o.7. 02/18/2019-on admission patient serum creatinine is 3.45 creatinine yesterday is 0.65 today's labs are pending acute kidney injury most likely secondary to poor oral intake resolved. (5) Septic shock Is this a current diagnosis for this admission?: Yes Plan: Resolved. Secondary to pneumonia. Off vasopressor. Continue IV antibiotics. 02/17/2019-patient is admitted with septic shock most likely secondary to pneumonia. Off the pressors. Plan is to discontinue levo floxacillin from today as per ID recommendations. 02/18/2019-patient was admitted with septic shock most likely secondary to pneumonia presently off the antibiotics presently off the pressors plan to repeat CT chest today. - Time Time Spent with patient: 15-24 minutes Medications reviewed and adjusted accordingly: Yes Anticipated discharge: Home
[2019-02-18] MEDS: FUROSEMIDE INJ/PF 20 MG/2 ML SDV IV SCH ×2 (09:34→22:05)
--- NOTE | 2019-02-18 10:36 | RADIOLOGY REPORT (SQ) ---
EXAM DESCRIPTION: CT CHEST WITHOUT COMPLETED DATE/TIME: 02/18/2019 10:09 am REASON FOR STUDY: resp failure COMPARISON: 02/10/2019 TECHNIQUE: CT scan performed of the chest without intravenous contrast. Images reviewed with lung, soft tissue and bone windows. Reconstructed coronal and sagittal MPR images reviewed. All images st ored on PACS. All CT scanners at this facility use dose modulation, iterative reconstruction, and/or weight based d osing when appropriate to reduce radiation dose to as low as reasonably achievable (ALARA). [facility]: Dose Right [facility]: CareDose [facility]: Dose Right [facility]: Teradose 4D [facility]: [employer] RADIATION DOSE: CT Rad equipment meets quality standard of care and radiation dose reduction techniq ues were employed. CTDIvol: 16.8 mGy. DLP: 528 mGy-cm. mGy. LIMITATIONS: No technical limitations. FINDINGS: LUNGS AND PLEURA: Dense consolidation and air bronchograms in the left lower lobe not sign ificantly changed. No evidence of cavitation. There is increasing consolidation in the right lower lobe. Trace pleural effusions. HILAR AND MEDIASTINAL STRUCTURES: No identified masses or abnormal nodes. No obvious aneurysm. HEART AND VASCULAR STRUCTURES: No aneurysm. No pericardial effusion. UPPER ABDOMEN: No significant findings. Limited exam. THYROID AND OTHER SOFT TISSUES: No masses. No adenopathy. BONES: No significant finding. HARDWARE: None in the chest. OTHER: Stable position of support apparatus. IMPRESSION: Increasing consolidation in the right lower lobe. No pneumothorax. TECHNICAL DOCUMENTATION: JOB ID: [id number] Quality ID # [id number]: Final reports with documentation of one or more dose reduction techniques (e.g., Au tomated exposure control, adjustment of the mA and/or kV according to patient size, use of iterative reconstruction technique) 2010 [employer]- All Rights Reserved Reading location - IP/workstation name: [email or web address]
[2019-02-18 12:11] LABS: ARTERIAL BLOOD BASE EXCESS 3.9 mmol/L; ARTERIAL BLOOD FIO2 35%; ARTERIAL BLOOD H2CO3 1.04 mmol/L (1.05-1.35); ARTERIAL BLOOD HCO3 26.9 mmol/L (20-24); ARTERIAL BLOOD O2 SATURATION 94.4 % (94-98); ARTERIAL BLOOD PCO2 34.7 mmHg (35-45); ARTERIAL BLOOD PH 7.51 (7.35-7.45)
[2019-02-18 12:12] LABS: ABSOLUTE EOSINOPHILS # (AUTO) 0.1 10^3/uL (0.0-0.6); ABSOLUTE MONOCYTES (AUTO) 0.8 10^3/uL (0.1-1.4); ABSOLUTE NEUT (AUTO) 6.2 10^3/uL (1.7-8.2); BASOPHILS % (AUTO) 0.4 % (0-2); EOSINOPHILS % (AUTO) 0.5 % (0-6); HEMATOCRIT 24.5 % (36.0-47.0); HEMOGLOBIN 8.1 g/dL (12.0-15.5); MEAN CORPUSCULAR HEMOGLOBIN 30.8 pg (27.0-33.4); MEAN CORPUSCULAR HGB CONC 33.2 g/dL (32.0-36.0); MEAN CORPUSCULAR VOLUME 93 fl (80-97); MONOCYTES % (AUTO) 7.1 % (3-13); PLATELET COUNT 294 10^3/uL (150-450); RED BLOOD COUNT 2.64 10^6/uL (3.72-5.28); RED CELL DISTRIBUTION WIDTH 16.9 % (11.5-14.0); TOTAL CELLS COUNTED % (AUTO) 100 %
[2019-02-18 12:22] LABS: ALANINE AMINOTRANSFERASE 76 U/L (9-52); ALBUMIN 3.4 g/dL (3.5-5.0); ALKALINE PHOSPHATASE 68 U/L (38-126); ANION GAP 9 (5-19); ASPARTATE AMINO TRANSFERASE 42 U/L (14-36); BILIRUBIN,DIRECT 0.5 mg/dL (0.0-0.4); BILIRUBIN,TOTAL 0.9 mg/dL (0.2-1.3); BLOOD UREA NITROGEN 33 mg/dL (7-20); CARBON DIOXIDE 28 mmol/L (22-30); CHLORIDE 109 mmol/L (98-107); GLUCOSE 80 mg/dL (75-110); SODIUM 145.8 mmol/L (137-145); TOTAL PROTEIN 6.1 g/dL (6.3-8.2)
[2019-02-18 12:26] LABS: POTASSIUM 2.9 mmol/L (3.6-5.0)
[2019-02-18] MEDS: POTASSI CL 20 MEQ/50 ML RIDER 20 MEQ/50 ML RTUPB IV SCH ×2 (13:29→15:16)
[2019-02-18] MEDS: NORMAL SALINE INJ/PF 0.9% 10 ML SDV IV PRN (22:03)
[2019-02-18] MEDS: MONTELUKAST SODIUM 10 MG TABLET NG SCH (22:05)
[2019-02-18] MEDS ORDERED: DIAZEPAM 5 MG TABLET NG PRN (23:23)
[2019-02-18] MEDS ORDERED: HYDROXYZINE HCL 10 MG TABLET NG ONE (23:30)
[2019-02-18] MEDS ORDERED: CLONAZEPAM 1 MG TABLET NG ONE (23:30)
[2019-02-19 01:08] LABS: ALANINE AMINOTRANSFERASE 72 U/L (9-52); ALBUMIN 3.6 g/dL (3.5-5.0); ALKALINE PHOSPHATASE 74 U/L (38-126); ANION GAP 10 (5-19); ASPARTATE AMINO TRANSFERASE 43 U/L (14-36); BILIRUBIN,DIRECT 0.7 mg/dL (0.0-0.4); BILIRUBIN,TOTAL 1.1 mg/dL (0.2-1.3); BLOOD UREA NITROGEN 35 mg/dL (7-20); CALCIUM 10.1 mg/dL (8.4-10.2); CARBON DIOXIDE 26 mmol/L (22-30); CHLORIDE 107 mmol/L (98-107); GLUCOSE 83 mg/dL (75-110); POTASSIUM 3.4 mmol/L (3.6-5.0); SODIUM 142.9 mmol/L (137-145); TOTAL PROTEIN 6.5 g/dL (6.3-8.2)
[2019-02-19] MEDS: VALPROATE SODIUM IV SCH ×3 (01:57→17:30)
[2019-02-19] MEDS: NORMAL SALINE IV SCH ×3 (01:57→17:30)
[2019-02-19] MEDS: LEVALBUTEROL HCL NEB 0.63 MG/3 ML AMPUL NEB PRN ×2 (03:59→20:18)
[2019-02-19] MEDS: HEPARIN SOD (PORCINE) 5,000 UNIT/ML 1 ML SYRINGE SUBCUT SCH ×2 (05:16→17:20)
[2019-02-19] MEDS: NORMAL SALINE INJ/PF 0.9% 10 ML SDV IV PRN (05:18)
[2019-02-19] MEDS: VANCOMYCIN HCL INJ 500 MG VIAL NG SCH ×3 (05:18→17:22)
[2019-02-19] MEDS: ACETYLCYSTEINE 20% SOLN 800 MG/4 ML VIAL.NEB NEB SCH ×2 (07:55→20:17)
[2019-02-19] MEDS: LEVOTHYROXINE SODIUM 0.05 MG TABLET NG SCH (10:49)
[2019-02-19] MEDS: LACTOBACILLUS ACIDOPHILUS 250 MG TAB NG SCH ×2 (10:49→17:20)
[2019-02-19] MEDS: FERROUS SULFATE LIQUID 300 MG/5 ML UDC NG SCH ×2 (10:49→17:20)
[2019-02-19] MEDS: FUROSEMIDE INJ/PF 20 MG/2 ML SDV IV SCH ×2 (10:49→22:13)
[2019-02-19] MEDS: LORATADINE 10 MG TABLET NG SCH (10:49)
[2019-02-19] MEDS: FLUTICASONE NASAL SPRAY 50 MCG/SPRY 120 SPRAY/16 GM NASL SCH (10:50)
[2019-02-19] MEDS: AMINO AC/PROTEIN HYDR/WHEY PRO 11 GM/45 ML PKT NG SCH ×4 (10:50→22:02)
[2019-02-19] MEDS: FLUOXETINE HCL 20 MG/5 ML UDCUP NG SCH (10:51)
[2019-02-19] MEDS: ZONISAMIDE 100 MG CAPSULE NG SCH ×2 (10:51→17:21)
[2019-02-19] MEDS: BENZOCAINE 20% AEROSOL SPRAY 60 GM TP PRN (17:15)
--- NOTE | 2019-02-19 21:43 | PDOC PROGRESS REPORT ---
Subjective Progress Note for:: 02/19/19 Subjective:: Attempted to answer 1 or 2 questions. Nursing reports still with diarrhea. Reason For Visit: BILATERAL PNEUMONIA,SEPTIC SHOCK,ACUTE RENAL Physical Exam Vital Signs: Temp Pulse Resp BP Pulse Ox 98.4 F 76 28 H 137/79 H 97 02/19/19 08:27 02/19/19 08:27 02/19/19 08:27 02/19/19 08:27 02/19/19 08:27 Intake & Output 02/18/19 02/19/19 02/20/19 06:59 06:59 06:59 Intake Total 114 655 Output Total 4360 4500 Balance -4246 -3845 Weight 95.1 kg 93.3 kg General appearance: PRESENT: no acute distress, cooperative - Limited cooperation. Mostly Staring at me. Eventually answered 1 or 2 questions., well-developed Head exam: PRESENT: atraumatic, normocephalic Ear exam: PRESENT: normal external ear exam Respiratory exam: PRESENT: rhonchi - Coarse breath sounds bilaterally., symmetrical, unlabored. ABSENT: accessory muscle use, rales, tachypnea, wheezes Cardiovascular exam: PRESENT: RRR, +S1, +S2 GI/Abdominal exam: PRESENT: normal bowel sounds, soft, other - Nasogastric tube in place. ABSENT: distended, tenderness Rectal exam: PRESENT: deferred, other - Active flow stool collection system in place Gentrourinary exam: PRESENT: indwelling catheter Neurological exam: PRESENT: alert, awake, oriented to person - Unable to assess due to limited interaction Psychiatric exam: PRESENT: flat affect. ABSENT: agitated, anxious Focused psych exam: ABSENT: restlessness Results Laboratory Results: 02/18/19 11:30 02/19/19 00:30 02/19/19 00:30 Sodium 142.9 Potassium 3.4 L Chloride 107 Carbon Dioxide 26 Anion Gap 10 BUN 35 H Creatinine 0.76 Est GFR ( Amer) > 60 Est GFR (Non-Af Amer) > 60 Glucose 83 Calcium 10.1 Magnesium 1.7 Total Bilirubin 1.1 AST 43 H ALT 72 H Alkaline Phosphatase 74 Total Protein 6.5 Albumin 3.6 02/07/19 02/07/19 23:00 23:00 Troponin I 0.185 NT-Pro-B Natriuret Pep 3020 H Impressions: Chest Ultrasound 02/13/19 08:31 IMPRESSION: NO PLEURAL FLUID IDENTIFIED IN THE LEFT CHEST. THEREFORE NO THORACENTESIS PERFORMED. Chest X-Ray 02/16/19 06:00 IMPRESSION: No significant change. KUB X-Ray 02/17/19 07:00 IMPRESSION: Nasogastric tube tip and side port in the stomach. Nonobstructive bowel gas pattern Chest CT 02/18/19 06:00 IMPRESSION: Increasing consolidation in the right lower lobe. No pneumothorax. Assessment and Plan - Diagnosis (1) Severe sepsis with acute organ dysfunction Is this a current diagnosis for this admission?: Yes Plan: 02/19/2019-the patient was admitted on February 08 with sepsis from pneumonia. She also exhibited acute kidney injury. At this point the acute kidney injury has resolved. The patient's BUN is still elevated. This may be due to not enough free water. (2) Community acquired pneumonia of left lower lobe of lung Is this a current diagnosis for this admission?: Yes Plan: 02/19/2019-the patient was initially treated with triple antibiotic therapy. She was successfully extubated. She did have 2 consecutive cultures positive for Nicole. Repeat CT scan shows worsening infiltrative disease now bilaterally. I have started micafungin for treatment. She may require return to antibiotic therapy. I would like to avoid antibiotics if possible due to the C. difficile. (3) Acute respiratory failure with hypoxia Is this a current diagnosis for this admission?: Yes Plan: 02/19/2019-secondary to pneumonia. The patient required intubation and mechanical ventilation. She was treated with antibiotics and nebulizers. She has been successfully extubated but remains on oxygen by nasal cannula. As noted above CT scan shows possible worsening of infiltrates. (4) Acute renal failure Qualifiers: Acute renal failure type: unspecified Qualified Code(s): N17.9 - Acute kidney failure, unspecified Is this a current diagnosis for this admission?: Yes Plan: 02/19/2019-the combination of multiple days of feeling poorly with decreased intake prior to this hospitalization. She was given aggressive fluid resuscitation as well as antibiotic therapy and her GFR is back to normal. (5) Seizure disorder Is this a current diagnosis for this admission?: Yes Plan: The patient is currently on Depakote and zonisamide. No further seizure activity noted. (6) Depression Qualifiers: Depression Type: other depression Qualified Code(s): F32.89 - Other specified depressive episodes Is this a current diagnosis for this admission?: Yes Plan: 02/19/2019-continue Prozac. Today the patient was staring at me and had minimal verbal participation in the encounter. This critical illness certainly could be having an impact on her in addition to her already existing depression. (7) Iron deficiency anemia Is this a current diagnosis for this admission?: Yes Plan: 02/19/2019-her hemoglobin is consistently around 8.0. I have ordered iron studies. She may benefit from IV iron but I will wait until she is finished with antibiotic therapy. If necessary I will suggest transfusion. (8) C. difficile diarrhea Is this a current diagnosis for this admission?: Yes Plan: 02/19/2019-the patient has developed C. difficile colitis. She did have aggressive antibiotic therapy. I will add probiotics to the regimen. Her diarrhea still requires a fecal collection system. (9) Pharyngitis Qualifiers: Pharyngitis/tonsillitis etiology: unspecified etiology Qualified Code(s): J02.9 - Acute pharyngitis, unspecified Is this a current diagnosis for this admission?: Yes Plan: 02/19/2019-the patient has a mechanical irritation from the endotracheal tube. I have ordered Hurricaine spray to be used as needed to help with this discomfort. - Time Time Spent with patient: 25-34 minutes Medications reviewed and adjusted accordingly: Yes Anticipated discharge: Home
[2019-02-19] MEDS ORDERED: HYDROXYZINE HCL 10 MG TABLET NG SCH (22:00)
[2019-02-19] MEDS: HYDROXYZINE PAMOATE 25 MG CAPSULE NG SCH (22:01)
[2019-02-19] MEDS: CLONAZEPAM 1 MG TABLET NG SCH (22:01)
[2019-02-19] MEDS: MONTELUKAST SODIUM 10 MG TABLET NG SCH (22:01)
[2019-02-19] MEDS: MICAFUNGIN SODIUM 100 MG in NORMAL SALINE 100 ML IV SCH (22:13)
[2019-02-20] MEDS: VANCOMYCIN HCL INJ 500 MG VIAL NG SCH ×4 (01:14→17:30)
[2019-02-20] MEDS: VALPROATE SODIUM IV SCH ×3 (01:17→17:29)
[2019-02-20] MEDS: NORMAL SALINE IV SCH ×3 (01:17→17:29)
[2019-02-20] MEDS: HEPARIN SOD (PORCINE) 5,000 UNIT/ML 1 ML SYRINGE SUBCUT SCH ×2 (06:41→17:30)
[2019-02-20] MEDS: LEVOTHYROXINE SODIUM 0.05 MG TABLET NG SCH (08:06)
--- NOTE | 2019-02-20 08:23 | RADIOLOGY REPORT (SQ) ---
EXAM DESCRIPTION: CHEST SINGLE VIEW COMPLETED DATE/TIME: 02/20/2019 8:14 am REASON FOR STUDY: pneumonia COMPARISON: 02/16/2019 NUMBER OF VIEWS: One view. TECHNIQUE: Single frontal radiographic image of the chest acquired. LIMITATIONS: None. FINDINGS: LUNGS AND PLEURA: The patient has been extubated. There is persistent bibasilar airspace disease left slightly greater than right. MEDIASTINUM AND HILAR STRUCTURES: Stable heart size and mediastinal structures. HEART AND VASCULAR STRUCTURES: Stable appearance. SUPPORT DEVICES: Central line remains in place. Tip overlies the right atrium. Endotracheal tube an d NG tube have been removed. BONES: No acute findings. OTHER: Battery pack overlying the left hemithorax and neurostimulator remain in place. IMPRESSION: The patient has been extubated. Persistent basilar airspace disease with minimal improv ement from prior study. TECHNICAL DOCUMENTATION: JOB ID: [id number] [employer]- All Rights Reserved Reading location - IP/workstation name: [email or web address]
[2019-02-20 08:25] LABS: ABSOLUTE BASOPHILS # (AUTO) 0.1 10^3/uL (0.0-0.2); ABSOLUTE EOSINOPHILS # (AUTO) 0.1 10^3/uL (0.0-0.6); ABSOLUTE LYMPHOCYTES (AUTO) 2.5 10^3/uL (0.5-4.7); ABSOLUTE MONOCYTES (AUTO) 0.4 10^3/uL (0.1-1.4); ABSOLUTE NEUT (AUTO) 3.2 10^3/uL (1.7-8.2); ABSOLUTE RETICS # 0.202 10^6/uL (0.028-0.122); BASOPHILS % (AUTO) 0.8 % (0-2); EOSINOPHILS % (AUTO) 1.2 % (0-6); HEMATOCRIT 24.8 % (36.0-47.0); HEMOGLOBIN 8.4 g/dL (12.0-15.5); LYMPHOCYTES % (AUTO) 40.4 % (13-45); MEAN CORPUSCULAR HEMOGLOBIN 31.4 pg (27.0-33.4); MEAN CORPUSCULAR HGB CONC 33.8 g/dL (32.0-36.0); MEAN CORPUSCULAR VOLUME 93 fl (80-97); MONOCYTES % (AUTO) 6.6 % (3-13); PLATELET COUNT 261 10^3/uL (150-450); RED BLOOD COUNT 2.67 10^6/uL (3.72-5.28); RED CELL DISTRIBUTION WIDTH 16.6 % (11.5-14.0); RETICULOCYTE COUNT (AUTO) 7.55 % (0.66-2.85); TOTAL CELLS COUNTED % (AUTO) 100 %; WHITE BLOOD COUNT 6.3 10^3/uL (4.0-10.5)
[2019-02-20 08:35] LABS: ANION GAP 9 (5-19); BLOOD UREA NITROGEN 36 mg/dL (7-20); CALCIUM 10.3 mg/dL (8.4-10.2); CARBON DIOXIDE 25 mmol/L (22-30); CHLORIDE 108 mmol/L (98-107); GLUCOSE 80 mg/dL (75-110); IRON(TIBC) 58.3 ug/dL (37-170); POTASSIUM 3.2 mmol/L (3.6-5.0); SODIUM 142.4 mmol/L (137-145)
[2019-02-20] MEDS: ACETYLCYSTEINE 20% SOLN 800 MG/4 ML VIAL.NEB NEB SCH ×2 (08:45→20:09)
[2019-02-20] MEDS: LEVALBUTEROL HCL NEB 0.63 MG/3 ML AMPUL NEB PRN ×2 (08:45→20:09)
[2019-02-20] MEDS ORDERED: POTASSIUM CHLORIDE 20 MEQ PACKET NG SCH (10:00)
[2019-02-20] MEDS: FUROSEMIDE INJ/PF 20 MG/2 ML SDV IV SCH ×2 (10:00→22:33)
[2019-02-20] MEDS: LACTOBACILLUS ACIDOPHILUS 250 MG TAB NG SCH ×2 (10:09→17:30)
[2019-02-20] MEDS: SENNOSIDES/DOCUSATE 8.6-50 MG 1 EACH TABLET NG SCH ×2 (10:10→10:27)
[2019-02-20] MEDS: LORATADINE 10 MG TABLET NG SCH (10:10)
[2019-02-20] MEDS: FLUTICASONE NASAL SPRAY 50 MCG/SPRY 120 SPRAY/16 GM NASL SCH (10:10)
[2019-02-20] MEDS: FERROUS SULFATE LIQUID 300 MG/5 ML UDC NG SCH ×2 (10:10→17:29)
[2019-02-20] MEDS: ZONISAMIDE 100 MG CAPSULE NG SCH ×2 (10:10→17:29)
[2019-02-20] MEDS: AMINO AC/PROTEIN HYDR/WHEY PRO 11 GM/45 ML PKT NG SCH ×4 (10:12→22:34)
[2019-02-20] MEDS: FLUOXETINE HCL 20 MG/5 ML UDCUP NG SCH (10:12)
[2019-02-20] MEDS: POTASSIUM CHLORIDE 20 MEQ PACKET NG SCH (17:29)
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
[2019-02-20] MEDS: HYDROXYZINE PAMOATE 25 MG CAPSULE NG SCH (22:46)
[2019-02-20] MEDS: CLONAZEPAM 1 MG TABLET NG SCH (22:46)
[2019-02-20] MEDS: MONTELUKAST SODIUM 10 MG TABLET NG SCH (22:46)
[2019-02-20] MEDS: MICAFUNGIN SODIUM 100 MG in NORMAL SALINE 100 ML IV SCH (22:47)
[2019-02-21] MEDS: VANCOMYCIN HCL INJ 500 MG VIAL NG SCH ×5 (00:12→23:41)
[2019-02-21] MEDS: VALPROATE SODIUM IV SCH ×3 (01:33→17:13)
[2019-02-21] MEDS: NORMAL SALINE IV SCH ×3 (01:33→17:13)
[2019-02-21] MEDS: HEPARIN SOD (PORCINE) 5,000 UNIT/ML 1 ML SYRINGE SUBCUT SCH ×2 (05:51→17:13)
[2019-02-21] MEDS: BENZOCAINE 20% AEROSOL SPRAY 60 GM TP PRN (06:01)
[2019-02-21] MEDS: ACETYLCYSTEINE 20% SOLN 800 MG/4 ML VIAL.NEB NEB SCH ×2 (08:10→20:19)
[2019-02-21] MEDS: LEVALBUTEROL HCL NEB 0.63 MG/3 ML AMPUL NEB PRN ×2 (08:11→20:19)
[2019-02-21] MEDS: FUROSEMIDE INJ/PF 20 MG/2 ML SDV IV SCH ×2 (10:40→21:29)
[2019-02-21] MEDS: POTASSIUM CHLORIDE 20 MEQ PACKET NG SCH ×2 (10:41→17:13)
[2019-02-21] MEDS: FERROUS SULFATE LIQUID 300 MG/5 ML UDC NG SCH ×2 (10:41→17:12)
[2019-02-21] MEDS: LEVOTHYROXINE SODIUM 0.05 MG TABLET NG SCH (10:41)
[2019-02-21] MEDS: ZONISAMIDE 100 MG CAPSULE NG SCH ×2 (10:41→17:13)
[2019-02-21] MEDS: FLUTICASONE NASAL SPRAY 50 MCG/SPRY 120 SPRAY/16 GM NASL SCH (10:41)
[2019-02-21] MEDS: LORATADINE 10 MG TABLET NG SCH (10:41)
[2019-02-21] MEDS: LACTOBACILLUS ACIDOPHILUS 250 MG TAB NG SCH ×2 (10:41→17:12)
[2019-02-21] MEDS: FLUOXETINE HCL 20 MG/5 ML UDCUP NG SCH (10:41)
[2019-02-21] MEDS: AMINO AC/PROTEIN HYDR/WHEY PRO 11 GM/45 ML PKT NG SCH ×4 (10:42→21:30)
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
[2019-02-21] MEDS: CLONAZEPAM 1 MG TABLET NG SCH (21:29)
[2019-02-21] MEDS: HYDROXYZINE PAMOATE 25 MG CAPSULE NG SCH (21:29)
[2019-02-21] MEDS: MONTELUKAST SODIUM 10 MG TABLET NG SCH (21:29)
[2019-02-21] MEDS: MICAFUNGIN SODIUM 100 MG in NORMAL SALINE 100 ML IV SCH (21:29)
[2019-02-22] MEDS: VALPROATE SODIUM IV SCH ×2 (02:30→10:51)
[2019-02-22] MEDS: NORMAL SALINE IV SCH ×2 (02:30→10:51)
[2019-02-22] MEDS: VANCOMYCIN HCL INJ 500 MG VIAL NG SCH (06:00)
[2019-02-22] MEDS: HEPARIN SOD (PORCINE) 5,000 UNIT/ML 1 ML SYRINGE SUBCUT SCH (06:09)
[2019-02-22] MEDS: LEVALBUTEROL HCL NEB 0.63 MG/3 ML AMPUL NEB PRN (08:19)
[2019-02-22] MEDS: ACETYLCYSTEINE 20% SOLN 800 MG/4 ML VIAL.NEB NEB SCH (08:19)
[2019-02-22] MEDS: LEVOTHYROXINE SODIUM 0.05 MG TABLET NG SCH (08:35)
[2019-02-22] MEDS: LACTOBACILLUS ACIDOPHILUS 250 MG TAB NG SCH (10:50)
[2019-02-22] MEDS: LORATADINE 10 MG TABLET NG SCH (10:51)
[2019-02-22] MEDS: FERROUS SULFATE LIQUID 300 MG/5 ML UDC NG SCH (10:51)
[2019-02-22] MEDS: FLUOXETINE HCL 20 MG/5 ML UDCUP NG SCH (10:52)
[2019-02-22] MEDS: ZONISAMIDE 100 MG CAPSULE NG SCH (10:52)
[2019-02-22] MEDS: POTASSIUM CHLORIDE 20 MEQ PACKET NG SCH (10:55)
[2019-02-22] MEDS: FLUTICASONE NASAL SPRAY 50 MCG/SPRY 120 SPRAY/16 GM NASL SCH (11:09)
[2019-02-22] MEDS: FUROSEMIDE INJ/PF 20 MG/2 ML SDV IV SCH (11:10)
[2019-02-22] MEDS: AMINO AC/PROTEIN HYDR/WHEY PRO 11 GM/45 ML PKT NG SCH (11:10)
[2019-02-22] MEDS ORDERED: ALPRAZOLAM 0.5 MG TABLET PO ONE (11:30)
[2019-02-22] MEDS ORDERED: CLONAZEPAM 1 MG TABLET PO ONE (12:00)
[2019-02-22 14:10] VITALS: BP 140/75
[2019-02-22] MEDS ORDERED: POTASSIUM CHLORIDE 20 MEQ PACKET PO ONE (15:00)
--- NOTE | 2019-02-23 09:58 | PDOC CONSULTATION ---
Consultation Consult Date: 02/08/19 Attending physician:: BLACK FIARCHILD Provider Consulted: WENDY BECKER Consult reason:: Pneumonia/acute respiratory failure History of Present Illness Admission Date/PCP: 02/08/19 05:07 PHILIPPE RUIZ NP History of Present Illness: EDITA TAO is a 28 year old female who lives at home has a history of some developmental abnormalities complained of coughing increasing shortness of breath 3 to 4 days prior to arrival at the emergency room however the evening of arrival she was noted to have a temperature of 104 tachypnea and tachycardia as well as hypoxia she was subsequently intubated and sedated and is currently in the ICU Past Medical History Cardiac Medical History: Reports: Heart Murmur - Ventricular septal defect? Denies: Coronary Artery Disease, Myocardial Infarction, Hypertension Pulmonary Medical History: Reports: Asthma - on meds Denies: Bronchitis, Chronic Obstructive Pulmonary Disease (COPD), Pneumonia EENT Medical History: Denies: Cataracts, Ears - Hearing aids Neurological Medical History: Reports: Seizures - last x 3 weeks ago//vns implant, Other - Developmental delays Denies: Hemorrhagic CVA, Ischemic CVA, Multiple Sclerosis Endocrine Medical History: Reports: Obesity Denies: Diabetes Mellitus Type 1, Diabetes Mellitus Type 2, Hyperthyroidism, Hypothyroidism Renal/ Medical History: Denies: Chronic Kidney Disease, Nephrolithiasis Malignancy Medical History: Reports: None GI Medical History: Denies: Cirrhosis, Crohn's Disease, Hepatitis, Ulcerative Colitis Musculoskeltal Medical History: Denies: Arthritis, Gout Skin Medical History: Denies: Eczema, Psoriasis Psychiatric Medical History: Denies: Alcohol Dependency, Substance Abuse, Tobacco Dependency Traumatic Medical History: Reports: None Hematology: Reports: Anemia Denies: Bleeding Tendencies Infectious Medical History: Reports: None Past Surgical History Past Surgical History: Reports: None Social History Information Source: [facility] Records Lives with: Parents Smoking Status: Never Smoker Frequency of Alcohol Use: None Hx Recreational Drug Use: No Drugs: None Hx Prescription Drug Abuse: No Do you have pets?: No Have you been exposed to any sick contacts recently?: No Have you had any recent respiratory illnesses?: No - Advance Directive Resuscitation Status: Full Code Family History Family History: Hypertension Parental Family History Reviewed: No Children Family History Reviewed: No Sibling(s) Family History Reviewed.: No Medication/Allergy Home Medications: Divalproex Sodium [Depakote ER] 2,500 mg PO QPM 01/25/15 Furosemide [Lasix] 20 mg PO DAILY 01/25/15 Montelukast Sodium [Singulair 10 mg Tablet] 10 mg PO QHS 01/25/15 Vitamin B Complex [Vitamin B-100 Complex] 1 each PO DAILY 01/25/15 Albuterol Sulfate [Ventolin 0.042% Neb 1.25 mg/3 mL Ampul] 1.25 mg NEB QIDP PRN 02/08/19 Cefdinir [Omnicef 250 mg/5 mL Suspension] 6 ml PO BID MDD FILLED 02/04 FOR 10 DAY SUPPLY 02/08/19 Clonazepam [Klonopin 1 mg Tablet] 1 mg PO QHS 02/08/19 Diazepam 10 mg PO DAILYP PRN 02/08/19 Docusate Sodium [Colace 100 mg Capsule] 100 mg PO DAILY 02/08/19 Fluoxetine HCl [Prozac] 20 mg PO QAM 02/08/19 Fluticasone Propionate [Flonase Nasal [place] 50 Mcg/[place] 16 gm] 2 sprays NASL DAILY 02/08/19 Folic Acid [Folvite 1 mg Tablet] 1 mg PO DAILY 02/08/19 Hydroxyzine HCl [Atarax 25 mg Tablet] 25 mg PO QHS 02/08/19 Levothyroxine Sodium [Synthroid 0.05 mg Tablet] 0.05 mg PO QAM 02/08/19 Loratadine [Claritin 10 mg Tablet] 10 mg PO DAILY 02/08/19 Sennosides [Senokot] 17.2 mg PO MOWEFR@1000 PRN 02/08/19 Zonisamide [Zonegran 100 mg Capsule] 200 mg PO BID 02/08/19 Metronidazole [Flagyl 500 mg Tablet] 500 mg PO Q8 8 Days #24 tablet 02/22/19 Potassium Chloride 20 meq PO BID 3 Days #6 tablet.er 02/22/19 Allergies/Adverse Reactions: pertussis vaccine,adsorbed [Pertussis Vaccine,Adsorbed] Allergy (Severe, Verified 01/25/15 11:01) Seizures Review of Systems ROS unobtainable: Due to endotracheal tube, Due to mental status Physical Exam Vital Signs: Temp Pulse Resp BP Pulse Ox 97.7 F 70 13 99/59 L 97 02/08/19 14:02 02/08/19 14:00 02/08/19 14:02 02/08/19 14:02 02/08/19 15:58 Intake & Output 02/07/19 02/08/19 02/09/19 06:59 06:59 06:59 Intake Total 2000 366 Output Total 600 835 Balance 1400 -469 Weight 91.9 kg General appearance: PRESENT: no acute distress, disheveled, obese. ABSENT: cooperative Head exam: PRESENT: atraumatic, normocephalic Eye exam: PRESENT: conjunctiva pale. ABSENT: EOMI, nystagmus, scleral icterus Mouth exam: PRESENT: dry mucosa, neck supple, tongue midline, other - ET tube in place Neck exam: ABSENT: carotid bruit, full ROM, JVD, lymphadenopathy, meningismus, tenderness, thyromegaly, tracheal deviation, tracheostomy, other Respiratory exam: PRESENT: decreased breath sounds, prolonged expiratory phas, rales, rhonchi, tachypnea, unlabored, wheezes. ABSENT: retraction, stridor, other Cardiovascular exam: PRESENT: RRR, +S1, +S2, systolic murmur, tachycardia Pulses: PRESENT: normal radial pulses GI/Abdominal exam: PRESENT: soft. ABSENT: mass, tenderness Gentrourinary exam: PRESENT: indwelling catheter Extremities exam: ABSENT: calf tenderness, clubbing, joint swelling, pedal edema Musculoskeletal exam: ABSENT: ambulatory, deformity, dislocation Neurological exam: ABSENT: altered Skin exam: PRESENT: dry, warm Results Laboratory Results: 02/07/19 22:07 02/07/19 23:00 02/07/19 02/07/19 02/07/19 22:07 22:07 22:07 WBC 4.9 RBC 3.21 L Hgb 10.0 L Hct 29.6 L MCV 92 MCH 31.1 MCHC 33.8 RDW 16.7 H Plt Count 123 L Seg Neutrophils % Not Reportable Lymphocytes % Not Reportable Monocytes % Not Reportable Eosinophils % Not Reportable Basophils % Not Reportable Absolute Neutrophils Not Reportable Absolute Lymphocytes Not Reportable Absolute Monocytes Not Reportable Absolute Eosinophils Not Reportable Absolute Basophils Not Reportable Carbonic Acid HCO3/H2CO3 Ratio ABG pH ABG pCO2 ABG pO2 ABG HCO3 ABG O2 Saturation ABG Base Excess VBG pH VBG pCO2 VBG HCO3 VBG Base Excess FiO2 Sodium Potassium Chloride Carbon Dioxide Anion Gap BUN Creatinine Est GFR ( Amer) Est GFR (Non-Af Amer) Glucose Lactic Acid Cancelled Calcium Total Bilirubin AST ALT Alkaline Phosphatase Total Protein Albumin Serum HCG, Qual NEGATIVE Urine Color Urine Appearance Urine pH Ur Specific [place] Urine Protein Urine Glucose (UA) Urine Ketones Urine Blood Urine Nitrite Ur Leukocyte Esterase Urine WBC (Auto) Urine RBC (Auto) 02/07/19 02/07/19 02/07/19 22:07 22:07 22:07 WBC RBC Hgb Hct MCV MCH MCHC RDW Plt Count Seg Neutrophils % Lymphocytes % Monocytes % Eosinophils % Basophils % Absolute Neutrophils Absolute Lymphocytes Absolute Monocytes Absolute Eosinophils Absolute Basophils Carbonic Acid HCO3/H2CO3 Ratio ABG pH ABG pCO2 ABG pO2 ABG HCO3 ABG O2 Saturation ABG Base Excess VBG pH 7.29 L VBG pCO2 47.7 VBG HCO3 22.6 VBG Base Excess -4.0 FiO2 Sodium Cancelled Potassium Cancelled Chloride Cancelled Carbon Dioxide Cancelled Anion Gap Cancelled BUN Cancelled Creatinine Cancelled Est GFR ( Amer) Cancelled Est GFR (Non-Af Amer) Cancelled Glucose Cancelled Lactic Acid 1.0 Calcium Cancelled Total Bilirubin Cancelled AST Cancelled ALT Cancelled Alkaline Phosphatase Cancelled Total Protein Cancelled Albumin Cancelled Serum HCG, Qual Urine Color Urine Appearance Urine pH Ur Specific [place] Urine Protein Urine Glucose (UA) Urine Ketones Urine Blood Urine Nitrite Ur Leukocyte Esterase Urine WBC (Auto) Urine RBC (Auto) 02/07/19 02/08/19 02/08/19 23:00 05:00 05:28 WBC RBC Hgb Hct MCV MCH MCHC RDW Plt Count Seg Neutrophils % Lymphocytes % Monocytes % Eosinophils % Basophils % Absolute Neutrophils Absolute Lymphocytes Absolute Monocytes Absolute Eosinophils Absolute Basophils Carbonic Acid HCO3/H2CO3 Ratio ABG pH ABG pCO2 ABG pO2 ABG HCO3 ABG O2 Saturation ABG Base Excess VBG pH VBG pCO2 VBG HCO3 VBG Base Excess FiO2 Sodium 137.2 Potassium 4.2 Chloride 102 Carbon Dioxide 20 L Anion Gap 15 BUN 46 H Creatinine 3.45 H Est GFR ( Amer) 19 L Est GFR (Non-Af Amer) 16 L Glucose 104 Lactic Acid 2.1 Calcium 8.3 L Total Bilirubin 0.6 AST 59 H ALT 33 Alkaline Phosphatase 49 Total Protein 5.4 L Albumin 2.7 L Serum HCG, Qual Urine Color YELLOW Urine Appearance CLOUDY Urine pH 5.0 Ur Specific [place] 1.013 Urine Protein 30 H Urine Glucose (UA) NEGATIVE Urine Ketones NEGATIVE Urine Blood MODERATE H Urine Nitrite NEGATIVE Ur Leukocyte Esterase NEGATIVE Urine WBC (Auto) 7 Urine RBC (Auto) 25 02/08/19 02/08/19 06:20 09:36 WBC RBC Hgb Hct MCV MCH MCHC RDW Plt Count Seg Neutrophils % Lymphocytes % Monocytes % Eosinophils % Basophils % Absolute Neutrophils Absolute Lymphocytes Absolute Monocytes Absolute Eosinophils Absolute Basophils Carbonic Acid 1.27 HCO3/H2CO3 Ratio 13:1 ABG pH 7.22 L ABG pCO2 42.2 ABG pO2 171.4 H ABG HCO3 17.0 L ABG O2 Saturation 98.9 H ABG Base Excess -10.0 VBG pH VBG pCO2 VBG HCO3 VBG Base Excess FiO2 100% Sodium Potassium Chloride Carbon Dioxide Anion Gap BUN Creatinine Est GFR ( Amer) Est GFR (Non-Af Amer) Glucose Lactic Acid 1.2 Calcium Total Bilirubin AST ALT Alkaline Phosphatase Total Protein Albumin Serum HCG, Qual Urine Color Urine Appearance Urine pH Ur Specific [place] Urine Protein Urine Glucose (UA) Urine Ketones Urine Blood Urine Nitrite Ur Leukocyte Esterase Urine WBC (Auto) Urine RBC (Auto) 02/07/19 02/07/19 23:00 23:00 Troponin I 0.185 NT-Pro-B Natriuret Pep 3020 H Impressions: Chest X-Ray 02/08/19 00:00 IMPRESSION: 1. Interval intubation. 2. Moderate opacity-effusion of the left lower and mid hemithorax. Moderate central edema pattern. Moderate patchy opacity of the right upper lobe. Interval worsening. Assessment & Plan - Diagnosis (1) Acute respiratory failure with hypoxia Is this a current diagnosis for this admission?: Yes Plan: Previous intubation patient unable to maintain adequate respiratory rate for good ventilation or oxygenation (2) Community acquired pneumonia of left lower lobe of lung Is this a current diagnosis for this admission?: Yes Plan: Treat as CAP regular Patient is not institutionalized (3) Seizure disorder Is this a current diagnosis for this admission?: Yes Plan: Continue current medications (4) Septic shock Is this a current diagnosis for this admission?: Yes Plan: Use of vasopressor agents - Time Total Critical Time (Minutes): 55
== END 2019-02-22 15:39 | disposition home health service (06) | DRG 870 ==
LOC: ER 21:47 → EH 02-08 05:07 → ICU 02-08 08:20 → 3W 02-18 16:26
PROVIDERS: ADMIT Emergency Medicine; ATTEND Emergency Medicine
PROC: 5A1955Z Respiratory Ventilation, Greater than 96 Consecutive Hours (ICD-10-PCS; principal; 2019-02-08)
PROC: 0BH17EZ Insertion of Endotracheal Airway into Trachea, Via Natural or Artificial Opening (ICD-10-PCS; 2019-02-08)
PROC: 05HY33Z Insertion of Infusion Device into Upper Vein, Percutaneous Approach (ICD-10-PCS; 2019-02-08)
PROC: 0DH673Z Insertion of Infusion Device into Stomach, Via Natural or Artificial Opening (ICD-10-PCS; 2019-02-08)
DX: A41.9 Sepsis, unspecified organism (principal); J18.1 Lobar pneumonia, unspecified organism; R65.21 Severe sepsis with septic shock; J96.01 Acute respiratory failure with hypoxia; N17.9 Acute kidney failure, unspecified; A04.72 Enterocolitis due to Clostridium difficile, not specified as recurrent; D50.9 Iron deficiency anemia, unspecified; J02.9 Acute pharyngitis, unspecified; F32.89 Other specified depressive episodes; G40.909 Epilepsy, unspecified, not intractable, without status epilepticus; R62.50 Unspecified lack of expected normal physiological development in childhood; Z79.51 Long term (current) use of inhaled steroids; Z79.899 Other long term (current) drug therapy
CPT/HCPCS: 36415; 51702; 71045; 71250; 74018; 76604; 80048; 80053; 80164; 80202; 81001; 82607; 82728; 82746; 82803; 82962; 83540; 83550; 83605; 83735; 83880; 84484; 84703; 85025; 85027; 85045; 85610; 85730; 86701; 87040; 87070; 87086; 87205; 87493; 93005; 93010; 94002; 94003; 94640; 94660; 94668; 96365; 96366; 96367; 96375; 99291; 99292; B4155; C1751; J0456; J0696; J1170; J1642; J1644; J1940; J1956; J2185; J2248; J2250; J2704; J2920; J2930; J3010; J3360; J3370; J3480; J3490; J7030; J7050; J7060; J7120; J7614; J7620; P9047; S0164

== ENCOUNTER → 2019-03-09 | Outpatient (CLI) | payer OTHER, MEDICAID ==
[2019-03-09 09:43] LABS: ABSOLUTE BASOPHILS # (AUTO) 0.1 10^3/uL (0.0-0.2); ABSOLUTE EOSINOPHILS # (AUTO) 0.1 10^3/uL (0.0-0.6); ABSOLUTE LYMPHOCYTES (AUTO) 5.5 10^3/uL (0.5-4.7); ABSOLUTE NEUT (AUTO) 6.6 10^3/uL (1.7-8.2); BASOPHILS % (AUTO) 1.1 % (0-2); EOSINOPHILS % (AUTO) 0.7 % (0-6); HEMATOCRIT 36.8 % (36.0-47.0); LYMPHOCYTES % (AUTO) 41.4 % (13-45); MEAN CORPUSCULAR HEMOGLOBIN 31.6 pg (27.0-33.4); MEAN CORPUSCULAR HGB CONC 35.3 g/dL (32.0-36.0); MEAN CORPUSCULAR VOLUME 90 fl (80-97); MONOCYTES % (AUTO) 7.8 % (3-13); RED CELL DISTRIBUTION WIDTH 16.7 % (11.5-14.0); TOTAL CELLS COUNTED % (AUTO) 100 %; WHITE BLOOD COUNT 13.4 10^3/uL (4.0-10.5)
[2019-03-09 10:10] LABS: ALANINE AMINOTRANSFERASE 36 U/L (9-52); ALBUMIN 4.4 g/dL (3.5-5.0); ALKALINE PHOSPHATASE 98 U/L (38-126); ASPARTATE AMINO TRANSFERASE 46 U/L (14-36); BILIRUBIN,DIRECT 0.6 mg/dL (0.0-0.4); BILIRUBIN,TOTAL 0.6 mg/dL (0.2-1.3); BLOOD UREA NITROGEN 11 mg/dL (7-20); CALCIUM 10.2 mg/dL (8.4-10.2); CARBON DIOXIDE 26 mmol/L (22-30); GLUCOSE 193 mg/dL (75-110); IRON(TIBC) 91.8 ug/dL (37-170); SODIUM 135.2 mmol/L (137-145); TOTAL PROTEIN 8.3 g/dL (6.3-8.2); TRIGLYCERIDES 402 mg/dL (<150)
[2019-03-09 10:18] LABS: PLATELET COUNT 467 10^3/uL (150-450)
[2019-03-09 10:21] LABS: DIRECT LDL 179 mg/dL (<100)
[2019-03-09 10:34] LABS: CHLORIDE 88 mmol/L (98-107)
[2019-03-09 10:37] LABS: ANION GAP 21 (5-19)
[2019-03-09 11:02] LABS: POTASSIUM 2.8 mmol/L (3.6-5.0)
--- NOTE | 2019-03-09 11:22 | RADIOLOGY REPORT (SQ) ---
EXAM DESCRIPTION: CHEST PA/LATERAL COMPLETED DATE/TIME: 03/09/2019 9:40 am REASON FOR STUDY: PNEUMONIA OF BOTH LUNGS DUE TO INFECTIOUS ORGANISM COMPARISON: 02/20/2019 EXAM PARAMETERS: NUMBER OF VIEWS: two views TECHNIQUE: Digital Frontal and Lateral radiographic views of the chest acquired. RADIATION DOSE: NA LIMITATIONS: none FINDINGS: LUNGS AND PLEURA: No opacities, masses or pneumothorax. No pleural effusion. MEDIASTINUM AND HILAR STRUCTURES: No masses or contour abnormalities. HEART AND VASCULAR STRUCTURES: Heart normal size. No evidence for failure. BONES: No acute findings. HARDWARE: Some type of stimulator device is present over the left chest. OTHER: No other significant finding. IMPRESSION: NO SIGNIFICANT RADIOGRAPHIC FINDING IN THE CHEST. TECHNICAL DOCUMENTATION: JOB ID: [id number] [employer]- All Rights Reserved Reading location - IP/workstation name: [email or web address]
== END ==
LOC: OD 08:42
PROVIDERS: ATTEND Family Medicine
DX: D64.9 Anemia, unspecified (principal); J18.9 Pneumonia, unspecified organism; E87.6 Hypokalemia; R63.5 Abnormal weight gain; E03.9 Hypothyroidism, unspecified
CPT/HCPCS: 36415; 71046; 80053; 80061; 82728; 83036; 83540; 83550; 84443; 85025

== ENCOUNTER → 2019-04-20 | Outpatient (CLI) | payer OTHER, MEDICAID ==
[2019-04-20 10:24] LABS: HEMATOCRIT 35.2 % (36.0-47.0); HEMOGLOBIN 11.5 g/dL (12.0-15.5); MEAN CORPUSCULAR HEMOGLOBIN 30.9 pg (27.0-33.4); MEAN CORPUSCULAR HGB CONC 32.6 g/dL (32.0-36.0); MEAN CORPUSCULAR VOLUME 95 fl (80-97); PLATELET COUNT 173 10^3/uL (150-450); RED BLOOD COUNT 3.71 10^6/uL (3.72-5.28); WHITE BLOOD COUNT 5.1 10^3/uL (4.0-10.5)
[2019-04-20 10:44] LABS: ALBUMIN 4.3 g/dL (3.5-5.0); ALKALINE PHOSPHATASE 57 U/L (38-126); ANION GAP 9 (5-19); ASPARTATE AMINO TRANSFERASE 28 U/L (14-36); BILIRUBIN,DIRECT 0.4 mg/dL (0.0-0.4); BILIRUBIN,TOTAL 0.4 mg/dL (0.2-1.3); BLOOD UREA NITROGEN 29 mg/dL (7-20); CALCIUM 10.5 mg/dL (8.4-10.2); CARBON DIOXIDE 27 mmol/L (22-30); CHLORIDE 106 mmol/L (98-107); CHOLESTEROL 218.22 mg/dL (0-200); GLUCOSE 83 mg/dL (75-110); IRON(TIBC) 105.5 ug/dL (37-170); POTASSIUM 4.6 mmol/L (3.6-5.0); TOTAL PROTEIN 7.7 g/dL (6.3-8.2); TRIGLYCERIDES 411 mg/dL (<150)
[2019-04-20 10:55] LABS: DIRECT LDL 113 mg/dL (<100)
[2019-04-20 11:03] LABS: ABSOLUTE LYMPHOCYTES# (MANUAL) 3.5 10^3/uL (0.5-4.7); ABSOLUTE MONOCYTES # (MANUAL) 0.5 10^3/uL (0.1-1.4); BASOPHILS % (MANUAL) 0 % (0-2); EOSINOPHILS % (MANUAL) 0 % (0-6); METAMYELOCYTES % (MANUAL) 1 % (0); MONOCYTES % (MANUAL) 9 % (3-13); SEGMENTED NEUTROPHILS % (MAN) 22 % (42-78); TOTAL CELLS COUNTED 100
[2019-04-20 11:04] LABS: ANISOCYTOSIS 1+; LYMPHOCYTES % (MANUAL) 68 % (13-45); OVALOCYTES SLIGHT; PLATELET COMMENT ADEQUATE; POIKILOCYTOSIS SLIGHT
[2019-04-21 12:34] LABS: PATH REVIEW PATHOLOGIST REVIEWED
== END ==
LOC: OD 09:30
PROVIDERS: ATTEND Family Medicine
DX: D64.9 Anemia, unspecified (principal); E03.9 Hypothyroidism, unspecified; E87.6 Hypokalemia; J18.9 Pneumonia, unspecified organism; R63.5 Abnormal weight gain
CPT/HCPCS: 36415; 80053; 80061; 82728; 83036; 83540; 83550; 84443; 85025

== ENCOUNTER → 2019-07-22 | Outpatient (CLI) | payer OTHER, MEDICAID ==
[2019-07-22 11:23] LABS: ABSOLUTE LYMPHOCYTES (AUTO) 3.9 10^3/uL (0.5-4.7); ABSOLUTE MONOCYTES (AUTO) 0.4 10^3/uL (0.1-1.4); BASOPHILS % (AUTO) 0.2 % (0-2); EOSINOPHILS % (AUTO) 0.5 % (0-6); HEMOGLOBIN 13.1 g/dL (12.0-15.5); LYMPHOCYTES % (AUTO) 53.1 % (13-45); MEAN CORPUSCULAR HEMOGLOBIN 31.7 pg (27.0-33.4); MEAN CORPUSCULAR HGB CONC 33.6 g/dL (32.0-36.0); MEAN CORPUSCULAR VOLUME 94 fl (80-97); MONOCYTES % (AUTO) 5.3 % (3-13); PLATELET COUNT 186 10^3/uL (150-450); RED BLOOD COUNT 4.13 10^6/uL (3.72-5.28); RED CELL DISTRIBUTION WIDTH 16.3 % (11.5-14.0); SEGMENTED NEUTROPHILS % (AUTO) 40.9 % (42-78); TOTAL CELLS COUNTED % (AUTO) 100 %; WHITE BLOOD COUNT 7.4 10^3/uL (4.0-10.5)
[2019-07-22 11:43] LABS: ALBUMIN 4.4 g/dL (3.5-5.0); ALKALINE PHOSPHATASE 73 U/L (38-126); ANION GAP 13 (5-19); ASPARTATE AMINO TRANSFERASE 36 U/L (14-36); BILIRUBIN,DIRECT 0.3 mg/dL (0.0-0.4); BILIRUBIN,TOTAL 0.4 mg/dL (0.2-1.3); BLOOD UREA NITROGEN 33 mg/dL (7-20); CALCIUM 10.4 mg/dL (8.4-10.2); CARBON DIOXIDE 24 mmol/L (22-30); CHLORIDE 106 mmol/L (98-107); GLUCOSE 86 mg/dL (75-110); IRON(TIBC) 86.8 ug/dL (37-170); POTASSIUM 4.4 mmol/L (3.6-5.0); TOTAL PROTEIN 8.4 g/dL (6.3-8.2); TRIGLYCERIDES 226 mg/dL (<150)
[2019-07-22 11:59] LABS: DIRECT LDL 100 mg/dL (<100)
[2019-07-22 12:03] LABS: FREE T3 3.24 pg/mL (2.77-5.27); FREE T4 (FREE THYROXINE) 1.12 ng/dL (0.78-2.19)
[2019-07-22 12:16] LABS: THYROID STIMULATING HORMONE 3.02 uIU/mL (0.47-4.68)
[2019-07-22 12:28] LABS: VLDL CHOLESTEROL 45.2 mg/dL (10-31)
== END ==
LOC: OD 09:21
PROVIDERS: ATTEND Family Medicine
DX: D64.9 Anemia, unspecified (principal); E03.9 Hypothyroidism, unspecified; E78.5 Hyperlipidemia, unspecified; E87.6 Hypokalemia
CPT/HCPCS: 36415; 80053; 80061; 82728; 83540; 83550; 84439; 84443; 84481; 85025